=== PATIENT | female | born 1985 | race Caucasian/White ===

== ENCOUNTER 2018-12-18 18:52 | Inpatient (IN) ==
[2018-12-18] MEDS ORDERED: 0.9 % Sodium Chloride 1,000 ML IVC ONE ×3 (19:31→23:03)
--- NOTE | 2018-12-18 19:36 | Emergency Department Note ---
Disposition Clinical Impression: Pulmonary cavitary lesion, Dehydration Pneumonia Qualifiers: Pneumonia type: due to unspecified organism Laterality: bilateral Lung location: unspecified part of lung Qualified Code(s): J18.9 - Pneumonia, unspecified organism Disposition: Admitted As Inpatient Condition: Fair Forms: ED Satisfaction Letter Time of Disposition: 00:08 General Adult HPI - General Chief complaint: ED Extremity Problem,Nontraumatic Stated complaint: Left leg pain Time Seen by Provider: 12/18/18 19:00 Source: EMS Limitations: no limitations Nursing Notes Reviewed: Yes Vital Signs Reviewed: Yes - History of Present Illness HPI Narrative: Shirley Frost is a 33-year-old female with recent tooth extraction on Friday who presents to the ED with complaint of sharp left-sided rib pain that shoots down into her toes and fatigue. She states that she has not felt well since having her tooth pulled. The pain on her left side is constant and fluctuates in severity. Pain is worse with movement and nothing make it better. She admits to a cough and fever for the past 4 days. Her temperature yesterday morning was 101. She took ibuprofen with subjective improvement in fever and minimal relief of pain. She states that she was taking an antibiotic prior to her tooth extraction that she finished on or friday of last week. She denies any drug or alcohol abuse. She smokes 1ppd. She also admits to incarceration 2 months ago, and states that she was TB negative prior to incarceration. She denies recent sick contacts, headache, lighthededness, CP, SOB, N/V/D, recent trauma or injury. Pt Subjective Complaint: left-sided rib and leg pain Pain Scale: 7 - Related Data Allergies Allergy/AdvReac Type Severity Reaction Status Date / Time No Known Allergies Allergy Verified 06/11/15 10:50 All systems ED: reviewed and negative except as stated. Past Medical History - Past Medical History Medical history: Reports: no medical history Psychiatric history: Reports: no psych history - Social History Smoking Status: Current every day smoker Smokeless Tobacco Status: No Alcohol use: Reports: none Drug use: Reports: none Physical Exam - General Limitations: no limitations General appearance: alert, in no apparent distress - Head Head exam: atraumatic, normocephalic - Eye Eye exam: Present: normal appearance, EOMI - ENT ENT exam: mucous membranes moist - Neck Neck exam: Present: trachea midline - Chest Chest inspection: Present: symmetric chest wall rise, tenderness (left anterior and lateral ribcage tender to palpation). Absent: rash - Respiratory Respiratory exam: Present: normal lung sounds bilaterally, respiratory distress. Absent: wheezes, accessory muscle use - Cardiovascular Cardiovascular exam: Present: normal rhythm, tachycardia, +S1, +S2 - Abdominal Exam Abdominal exam: Present: soft, tenderness, guarding. Absent: distention, rebound, rigidity Abdominal tenderness: Present: RLQ, LUQ, LLQ, epigastrium, mild - Extremities Exam Extremities exam: Present: normal inspection. Absent: tenderness, pedal edema - Back Exam Back exam: Present: normal inspection. Absent: tenderness - Neurological Exam Neurological exam: Present: alert, oriented X3. Absent: motor sensory deficit - Psychiatric Psychiatric exam: Present: normal mood, flat affect - Skin Skin exam: Present: warm (clammy), intact. Absent: rash, cyanosis Course Vital Signs Temperature 98.5 F 12/18/18 18:55 Pulse Rate 130 12/18/18 18:55 Respiratory Rate 20 12/18/18 18:55 Blood Pressure 107/67 12/18/18 18:55 O2 Sat by Pulse Oximetry 98 12/18/18 18:55 Temperature 98.5 F 12/18/18 18:55 Pulse Rate 97 12/18/18 23:10 Respiratory Rate 16 12/18/18 23:10 Blood Pressure 102/62 12/18/18 23:10 O2 Sat by Pulse Oximetry 100 12/18/18 23:10 Oxygen Delivery Oxygen Delivery Room Air Medical Decision Making - [facility] Narrative Medical decision making narrative: Reported fever (afebrile on arrival), tachycardia, recent oral infection with tooth extraction. Oral exam normal without swelling, abscess, erythema. CBC normal. T Bili 1.4 D Bili 0.5, UA negative but suspect dehydration. CXR negative. No acute rib fracture. 2L NS bolus ordered CTA pending to r/o PE. HR now in the 90s, patient denies SOB at this time. CTA with multiple mediastinal and hilar nodes. Subcarnial lymp node approx 1.7x1.2cm. Multiple ill defined opacities bilaterally, come with central lucenxy suggesting cavitation and/or necrosis. BP 90s/50, changed to small adult cuff, last BP 102/62. HR 80-90s. Nursing to hang 3rd liter of fluids. Vanc/Zosyn x1 ordered. [id number] Patient accepted for admission by Dr. Mejias. UDS and Procalcitonin ordered per his request. - Medical Records Medical records reviewed: Yes I reviewed the patient's medical records. - Lab Data Lab results reviewed: Yes I reviewed the patient's lab results. Result diagrams: 12/18/18 19:50 12/18/18 19:50 Lab Results 12/18/18 12/18/18 12/18/18 Range/Units 19:50 19:50 19:50 WBC 8.7 (4.3-11.1) K/mcL RBC 4.49 (3.82-4.97) M/mcL Hgb 13.4 (11.5-15.4) g/dL Hct 39.5 (35.3-44.9) % MCV 88.0 (83.0-100.0) fL MCH 29.8 (28.0-33.3) pg MCHC 33.9 (31.6-35.5) g/dL RDW 11.6 (11.5-14.5) % Plt Count 201 (140-400) K/mcL MPV 9.5 (9.4-12.4) fL Immature Gran % 0.5 (0-4) % Seg Neutrophils % 72.2 % Lymphocytes % 16.1 % Monocytes % 11.0 % Eosinophils % 0.0 % Basophils % 0.2 % Neutrophils # 6.3 (1.6-8.9) K/mcL Lymphocytes # 1.4 (0.6-4.6) K/mcL Monocytes # 1.0 (0.0-1.3) K/mcL Eosinophils # 0.0 (0.0-0.6) K/mcL Basophils # 0.0 (0.0-0.2) K/mcL Sodium 134 L (136-145) mEq/L Potassium 3.8 (3.5-5.1) mEq/L Chloride 93 L (98-107) mEq/L Carbon Dioxide 30 H (23-29) mEq/L BUN 17 (6-20) mg/dL Creatinine 0.86 (0.60-1.20) mg/dL Est GFR ( Amer) > 60 (> 60) Est GFR (Non-Af Amer) > 60 (> 60) BUN/Creatinine Ratio 20 (6-26) Glucose 105 (70-105) mg/dL Calculated Osmolality 280 (280-300) Lactic Acid (0.5-2.2) mmol/L Calcium 9.4 (8.6-10.3) mg/dL Phosphorus 2.2 L (2.7-4.5) mg/dL Magnesium 2.4 (1.6-2.6) mg/dL Total Bilirubin 1.3 H (0.3-1.0) mg/dL Direct Bilirubin 0.5 H (0.0-0.2) mg/dL Indirect Bilirubin 0.8 (0.0-1.2) mg/dL AST 25 (13-39) Units/L ALT 26 (7-52) Units/L Alkaline Phosphatase 105 H (34-104) Units/L Troponin I < 0.03 (< 0.04) ng/mL Serum Total Protein 7.8 (6.4-8.9) g/dL Albumin 3.9 (3.5-5.7) g/dL Globulin 3.9 H (2.4-3.5) g/dL Albumin/Globulin Ratio 1.0 L (1.1-2.2) Urine Color [place] A (Yellow) Urine Clarity Cloudy A (Clear) Urine pH 6.0 (5.0-8.0) pH Units Ur Specific [place] 1.010 (1.010-1.025) Urine Protein 100 H (Neg-Trace) mg/dL Urine Glucose (UA) 100 H (Normal) mg/dL Urine Ketones 40 H (Negative) mg/dL Urine Blood Trace H (Negative) Urine Nitrite Negative (Negative) Urine Bilirubin Moderate H (Negative) Urine Urobilinogen 4.0 H (Normal) mg/dL Ur Leukocyte Esterase Negative (Negative) Urine Microscopic RBC 0-3 (0-3) per hpf Urine Microscopic WBC 15-30 H (0-3) per hpf Ur Squamous Epith Cells Many H (None-Few) per lpf Urine Bacteria Few (None-Few) per hpf Hyaline Casts Few (None-Few) per lpf Ur Culture Indicated? YES A (NO) Urine Test (Negative) 12/18/18 12/18/18 Range/Units 19:50 19:50 WBC (4.3-11.1) K/mcL RBC (3.82-4.97) M/mcL Hgb (11.5-15.4) g/dL Hct (35.3-44.9) % MCV (83.0-100.0) fL MCH (28.0-33.3) pg MCHC (31.6-35.5) g/dL RDW (11.5-14.5) % Plt Count (140-400) K/mcL MPV (9.4-12.4) fL Immature Gran % (0-4) % Seg Neutrophils % % Lymphocytes % % Monocytes % % Eosinophils % % Basophils % % Neutrophils # (1.6-8.9) K/mcL Lymphocytes # (0.6-4.6) K/mcL Monocytes # (0.0-1.3) K/mcL Eosinophils # (0.0-0.6) K/mcL Basophils # (0.0-0.2) K/mcL Sodium (136-145) mEq/L Potassium (3.5-5.1) mEq/L Chloride (98-107) mEq/L Carbon Dioxide (23-29) mEq/L BUN (6-20) mg/dL Creatinine (0.60-1.20) mg/dL Est GFR ( Amer) (> 60) Est GFR (Non-Af Amer) (> 60) BUN/Creatinine Ratio (6-26) Glucose (70-105) mg/dL Calculated Osmolality (280-300) Lactic Acid 1.2 (0.5-2.2) mmol/L Calcium (8.6-10.3) mg/dL Phosphorus (2.7-4.5) mg/dL Magnesium (1.6-2.6) mg/dL Total Bilirubin (0.3-1.0) mg/dL Direct Bilirubin (0.0-0.2) mg/dL Indirect Bilirubin (0.0-1.2) mg/dL AST (13-39) Units/L ALT (7-52) Units/L Alkaline Phosphatase (34-104) Units/L Troponin I (< 0.04) ng/mL Serum Total Protein (6.4-8.9) g/dL Albumin (3.5-5.7) g/dL Globulin (2.4-3.5) g/dL Albumin/Globulin Ratio (1.1-2.2) Urine Color (Yellow) Urine Clarity (Clear) Urine pH (5.0-8.0) pH Units Ur Specific [place] (1.010-1.025) Urine Protein (Neg-Trace) mg/dL Urine Glucose (UA) (Normal) mg/dL Urine Ketones (Negative) mg/dL Urine Blood (Negative) Urine Nitrite (Negative) Urine Bilirubin (Negative) Urine Urobilinogen (Normal) mg/dL Ur Leukocyte Esterase (Negative) Urine Microscopic RBC (0-3) per hpf Urine Microscopic WBC (0-3) per hpf Ur Squamous Epith Cells (None-Few) per lpf Urine Bacteria (None-Few) per hpf Hyaline Casts (None-Few) per lpf Ur Culture Indicated? (NO) Urine Test Negative (Negative) - Radiology Data Radiology results reviewed: Yes I reviewed the patient's radiology results. - EKG Data EKG #1 EKG attestation: Yes I reviewed and interpreted this EKG. EKG results narrative: Sinus Tachycardia HR106 RR 568 OK 121 QRSD 80 QT 314 QTc 417. Similar to EKG pooja keith 10/28/2006. No acute ischemic changes, no ST elevation or depressions.
[2018-12-18 20:05] LABS: Bilirubin,Urine Moderate (Negative); Blood,Urine Trace (Negative); Clarity,Urine Cloudy (Clear); Color,Urine Orange (Yellow); Glucose,Urine (UA) 100 mg/dL (Normal); Ketones,Urine 40 mg/dL (Negative); Leukocyte Esterase,Urine Negative (Negative); Nitrite,Urine Negative (Negative); Protein,Urine 100 mg/dL (Neg-Trace)
[2018-12-18 20:07] LABS: Bacteria,Urine Few per hpf (None-Few); RBC,Urine 0-3 per hpf (0-3); Squamous Epithelial Cell,Urine Many per lpf (None-Few); WBC,Urine 15-30 per hpf (0-3)
[2018-12-18 20:09] LABS: Basophils % 0.2 %; Hematocrit 39.5 % (35.3-44.9); Hemoglobin 13.4 g/dL (11.5-15.4); Immature Granulocytes % 0.5 % (0-4); Lymphocytes # 1.4 K/mcL (0.6-4.6); Lymphocytes % 16.1 %; Mean Corpuscular HGB Conc 33.9 g/dL (31.6-35.5); Mean Corpuscular Hemoglobin 29.8 pg (28.0-33.3); Mean Platelet Volume 9.5 fL (9.4-12.4); Neutrophils # 6.3 K/mcL (1.6-8.9); Platelet Count 201 K/mcL (140-400); Red Blood Count 4.49 M/mcL (3.82-4.97); Red Cell Distribution Width 11.6 % (11.5-14.5); Segmented Neutrophils % 72.2 %; White Blood Count 8.7 K/mcL (4.3-11.1)
[2018-12-18 20:18] LABS: Hyaline Casts,Urine Few per lpf (None-Few)
[2018-12-18 20:31] LABS: Alanine Aminotransferase 26 Units/L (7-52); Albumin 3.9 g/dL (3.5-5.7); Alkaline Phosphatase 105 Units/L (34-104); Aspartate Amino Transferase 25 Units/L (13-39); BUN/Creatinine Ratio 20 (6-26); Bilirubin,Direct 0.5 mg/dL (0.0-0.2); Bilirubin,Indirect 0.8 mg/dL (0.0-1.2); Bilirubin,Total 1.3 mg/dL (0.3-1.0); Blood Urea Nitrogen 17 mg/dL (6-20); Calcium 9.4 mg/dL (8.6-10.3); Carbon Dioxide 30 mEq/L (23-29); Chloride 93 mEq/L (98-107); Globulin 3.9 g/dL (2.4-3.5); Glucose 105 mg/dL (70-105); Magnesium 2.4 mg/dL (1.6-2.6); Osmolality,Calculated 280 (280-300); Phosphorous 2.2 mg/dL (2.7-4.5); Potassium 3.8 mEq/L (3.5-5.1); Sodium 134 mEq/L (136-145); Total Protein 7.8 g/dL (6.4-8.9); Troponin I < 0.03 ng/mL (< 0.04); eGFR For African Americans > 60 (> 60); eGFR For Non-African Americans > 60 (> 60)
[2018-12-18] MEDS ORDERED: Isovue-370 500 ML BOTTLE IVP ONE (20:36)
[2018-12-18] MEDS ORDERED: Piperacillin/Tazobactam 3.375 GM in 0.9 % Sodium Chloride Mini Bag 100 ML IVPB ONE (23:03)
--- NOTE | 2018-12-18 23:47 | Emergency Department Note ---
Disposition Clinical Impression: Pulmonary necrosis, Hilar lymphadenopathy Pneumonia Qualifiers: Pneumonia type: due to unspecified organism Laterality: unspecified laterality Lung location: unspecified part of lung Qualified Code(s): J18.9 - Pneumonia, unspecified organism Disposition: Admitted As Inpatient Condition: Good Forms: ED Satisfaction Letter Time of Disposition: 23:49 General Adult HPI - General Chief complaint: ED Extremity Problem,Nontraumatic Stated complaint: Left leg pain Time Seen by Provider: 12/18/18 19:00 Source: EMS Limitations: no limitations - History of Present Illness Pain Scale: 7 - Related Data Allergies Allergy/AdvReac Type Severity Reaction Status Date / Time No Known Allergies Allergy Verified 06/11/15 10:50 Past Medical History - Past Medical History Medical history: Reports: no medical history Psychiatric history: Reports: no psych history - Social History Smoking Status: Current every day smoker Smokeless Tobacco Status: No Alcohol use: Reports: none Drug use: Reports: none Physical Exam - General Limitations: no limitations General appearance: alert, in no apparent distress Course Vital Signs Temperature 98.5 F 12/18/18 18:55 Pulse Rate 130 12/18/18 18:55 Respiratory Rate 20 12/18/18 18:55 Blood Pressure 107/67 12/18/18 18:55 O2 Sat by Pulse Oximetry 98 12/18/18 18:55 Temperature 98.5 F 12/18/18 18:55 Pulse Rate 97 12/18/18 23:10 Respiratory Rate 16 12/18/18 23:10 Blood Pressure 102/62 12/18/18 23:10 O2 Sat by Pulse Oximetry 100 12/18/18 23:10 Oxygen Delivery Oxygen Delivery Room Air Medical Decision Making - Lab Data Result diagrams: 12/18/18 19:50 12/18/18 19:50 Lab Results 12/18/18 12/18/18 12/18/18 Range/Units 19:50 19:50 19:50 WBC 8.7 (4.3-11.1) K/mcL RBC 4.49 (3.82-4.97) M/mcL Hgb 13.4 (11.5-15.4) g/dL Hct 39.5 (35.3-44.9) % MCV 88.0 (83.0-100.0) fL MCH 29.8 (28.0-33.3) pg MCHC 33.9 (31.6-35.5) g/dL RDW 11.6 (11.5-14.5) % Plt Count 201 (140-400) K/mcL MPV 9.5 (9.4-12.4) fL Immature Gran % 0.5 (0-4) % Seg Neutrophils % 72.2 % Lymphocytes % 16.1 % Monocytes % 11.0 % Eosinophils % 0.0 % Basophils % 0.2 % Neutrophils # 6.3 (1.6-8.9) K/mcL Lymphocytes # 1.4 (0.6-4.6) K/mcL Monocytes # 1.0 (0.0-1.3) K/mcL Eosinophils # 0.0 (0.0-0.6) K/mcL Basophils # 0.0 (0.0-0.2) K/mcL Sodium 134 L (136-145) mEq/L Potassium 3.8 (3.5-5.1) mEq/L Chloride 93 L (98-107) mEq/L Carbon Dioxide 30 H (23-29) mEq/L BUN 17 (6-20) mg/dL Creatinine 0.86 (0.60-1.20) mg/dL Est GFR ( Amer) > 60 (> 60) Est GFR (Non-Af Amer) > 60 (> 60) BUN/Creatinine Ratio 20 (6-26) Glucose 105 (70-105) mg/dL Calculated Osmolality 280 (280-300) Lactic Acid (0.5-2.2) mmol/L Calcium 9.4 (8.6-10.3) mg/dL Phosphorus 2.2 L (2.7-4.5) mg/dL Magnesium 2.4 (1.6-2.6) mg/dL Total Bilirubin 1.3 H (0.3-1.0) mg/dL Direct Bilirubin 0.5 H (0.0-0.2) mg/dL Indirect Bilirubin 0.8 (0.0-1.2) mg/dL AST 25 (13-39) Units/L ALT 26 (7-52) Units/L Alkaline Phosphatase 105 H (34-104) Units/L Troponin I < 0.03 (< 0.04) ng/mL Serum Total Protein 7.8 (6.4-8.9) g/dL Albumin 3.9 (3.5-5.7) g/dL Globulin 3.9 H (2.4-3.5) g/dL Albumin/Globulin Ratio 1.0 L (1.1-2.2) Urine Color [place] A (Yellow) Urine Clarity Cloudy A (Clear) Urine pH 6.0 (5.0-8.0) pH Units Ur Specific [place] 1.010 (1.010-1.025) Urine Protein 100 H (Neg-Trace) mg/dL Urine Glucose (UA) 100 H (Normal) mg/dL Urine Ketones 40 H (Negative) mg/dL Urine Blood Trace H (Negative) Urine Nitrite Negative (Negative) Urine Bilirubin Moderate H (Negative) Urine Urobilinogen 4.0 H (Normal) mg/dL Ur Leukocyte Esterase Negative (Negative) Urine Microscopic RBC 0-3 (0-3) per hpf Urine Microscopic WBC 15-30 H (0-3) per hpf Ur Squamous Epith Cells Many H (None-Few) per lpf Urine Bacteria Few (None-Few) per hpf Hyaline Casts Few (None-Few) per lpf Ur Culture Indicated? YES A (NO) Urine Test (Negative) 12/18/18 12/18/18 Range/Units 19:50 19:50 WBC (4.3-11.1) K/mcL RBC (3.82-4.97) M/mcL Hgb (11.5-15.4) g/dL Hct (35.3-44.9) % MCV (83.0-100.0) fL MCH (28.0-33.3) pg MCHC (31.6-35.5) g/dL RDW (11.5-14.5) % Plt Count (140-400) K/mcL MPV (9.4-12.4) fL Immature Gran % (0-4) % Seg Neutrophils % % Lymphocytes % % Monocytes % % Eosinophils % % Basophils % % Neutrophils # (1.6-8.9) K/mcL Lymphocytes # (0.6-4.6) K/mcL Monocytes # (0.0-1.3) K/mcL Eosinophils # (0.0-0.6) K/mcL Basophils # (0.0-0.2) K/mcL Sodium (136-145) mEq/L Potassium (3.5-5.1) mEq/L Chloride (98-107) mEq/L Carbon Dioxide (23-29) mEq/L BUN (6-20) mg/dL Creatinine (0.60-1.20) mg/dL Est GFR ( Amer) (> 60) Est GFR (Non-Af Amer) (> 60) BUN/Creatinine Ratio (6-26) Glucose (70-105) mg/dL Calculated Osmolality (280-300) Lactic Acid 1.2 (0.5-2.2) mmol/L Calcium (8.6-10.3) mg/dL Phosphorus (2.7-4.5) mg/dL Magnesium (1.6-2.6) mg/dL Total Bilirubin (0.3-1.0) mg/dL Direct Bilirubin (0.0-0.2) mg/dL Indirect Bilirubin (0.0-1.2) mg/dL AST (13-39) Units/L ALT (7-52) Units/L Alkaline Phosphatase (34-104) Units/L Troponin I (< 0.04) ng/mL Serum Total Protein (6.4-8.9) g/dL Albumin (3.5-5.7) g/dL Globulin (2.4-3.5) g/dL Albumin/Globulin Ratio (1.1-2.2) Urine Color (Yellow) Urine Clarity (Clear) Urine pH (5.0-8.0) pH Units Ur Specific [place] (1.010-1.025) Urine Protein (Neg-Trace) mg/dL Urine Glucose (UA) (Normal) mg/dL Urine Ketones (Negative) mg/dL Urine Blood (Negative) Urine Nitrite (Negative) Urine Bilirubin (Negative) Urine Urobilinogen (Normal) mg/dL Ur Leukocyte Esterase (Negative) Urine Microscopic RBC (0-3) per hpf Urine Microscopic WBC (0-3) per hpf Ur Squamous Epith Cells (None-Few) per lpf Urine Bacteria (None-Few) per hpf Hyaline Casts (None-Few) per lpf Ur Culture Indicated? (NO) Urine Test Negative (Negative) Attestation Statement - Attestation Attestation: I reviewed the residents documentation and agree with the residents assessment and plan of care. I have personally had face to face time with the patient. (Brief History, Brief Exam, and MDM) I personally supervised and was present for the botello/critical portions of the following procedures completed by the resident: EKG 33 year old female presents to the ED with complaints of chest pain on her left side that otherwise radiates down to her leg and has a heart rate of 130 and labile blood pressures. It appears that on CTA that she has lung necrosis, cavitations, and hilar lymphadenopathy. Patient was recently incarcerated in september. Axel is at risk for TB and although her heart rate has improved we will start her on ABX now and then admit to medicine. drolet precautions have been taken and she has been moved into a negative pressure room
[2018-12-19] MEDS ORDERED: Naloxone 0.4 MG/ML INJ IVP PRN (01:02)
[2018-12-19] MEDS ORDERED: 0.9 % Sodium Chloride 1,000 ML IVC SCH (01:15)
--- NOTE | 2018-12-19 01:27 | Internal Med History&Physical ---
Date of Encounter: 12/19/18 Time of Encounter: 01: Internal Medicine - H&P: HPI Chief complaint: chest pain Admitted From: Home Plans for Post Hospital Care: Home History of present illness: Shirley Frost is a 33 year old woman with a history of substance use disorder who reportedly quit 7 months ago after being incarcerated and was released 2 months ago but says she has remained clean. She presents to the emergency room complaining of 3 days of generalized malaise, fever, chills, left sided pleuritic chest pain that radiates all the way down her life side. On arrival she was tachycardic but afebrile and normotensive. CT scan was done which showed multifocal nodular lesions, some with central lucency suggesting cavitation or necrosis. The largest is seen to be in the left lower periphery abutting where she feels the pleuritic pain the most. She is admitted for further care. Vitals: Reviewed General: Well-appearing, NAD, some antalgic posturing Skin: Warm, dry HEENT: Moist mucous membranes. No conjunctivae pallor or petechiae. Poor dentition. Neck: No lymphadenopathy. No JVD. No carotid bruits. No palpable thyroid. Chest: Diminished thoracic expansion due to pain. No wheezes, rales or rhonchi. Heart: Normal S1 & S2; rhythmic. No rubs or murmurs. Abdomen: Non-distended, soft and non-tender to palpation. No peritoneal reaction. Extremities: No clubbing, cyanosis or edema. No calf tenderness. Normal distal pulses. No janeway lesions or splinter hemorrhages identified. Neurological: Awake, alert and oriented to person, place and time. No focal deficits. Psych: Affect appropriate. Assessment/Plan 1. Pleuritic chest pain: CTA negative for PE but remarkable for multifocal nodular lesions which have the appearance of septic emboli. If this would be the case it is unclear if these are newly formed or in convalescence. She is high risk with her IVDU history. Will prefer to treat empirically for now until we understand better what is at play and start vancomycin/ceftriaxone empirically, obtain multiple sets of blood cultures to increase yield and schedule her for an echo to assess for valvular lesions. 2. Substance use disorder: Check UDS for to assess for ongoing use. 5 minutes were spent counseling and educating the patient on this habit. resident services supervisor and resources were made available. 3. Tobacco dependence: Smoking cessation advised. 4. DVT prophylaxis: SCDs. Past Med Surg Social Fam HX - Past Medical History Medical history: no medical history Psychiatric history: no psych history - Past Surgical History Additional surgical history: Ear Tubes, Tubal ligation - Social History Smoking Status: Current every day smoker Smokeless Tobacco Status: No Alcohol use: none Drug use: none Internal Medicine - H&P: Meds Allergy/AdvReac Type Severity Reaction Status Date / Time No Known Allergies Allergy Verified 06/11/15 10:50 All Systems PM: A 10-system review of systems was performed and is negative for pertinent findings except as documented above in the HPI. Family history reviewed and found non-contributory. - Constitutional Vitals: Temp Pulse Resp BP Pulse Ox 98.5 F 97 16 102/62 100 12/18/18 18:55 12/18/18 23:10 12/18/18 23:10 12/18/18 23:10 12/18/18 23:10 Exam: . Internal Med - H&P Results - Labs CBC & Chem 7: 12/18/18 19:50 12/18/18 19:50 Labs: Short CBC 12/18/18 Range/Units 19:50 WBC 8.7 (4.3-11.1) K/mcL Hgb 13.4 (11.5-15.4) g/dL Hct 39.5 (35.3-44.9) % Plt Count 201 (140-400) K/mcL Neutrophils # 6.3 (1.6-8.9) K/mcL BMP 12/18/18 19:50 Sodium 134 L Potassium 3.8 Chloride 93 L Carbon Dioxide 30 H BUN 17 Creatinine 0.86 Glucose 105 Calcium 9.4 Cardiac Enzymes 12/18/18 Range/Units 19:50 Troponin I < 0.03 (< 0.04) ng/mL Liver Function 12/18/18 Range/Units 19:50 Total Bilirubin 1.3 H (0.3-1.0) mg/dL Direct Bilirubin 0.5 H (0.0-0.2) mg/dL AST 25 (13-39) Units/L ALT 26 (7-52) Units/L Alkaline Phosphatase 105 H (34-104) Units/L Albumin 3.9 (3.5-5.7) g/dL Urine 12/18/18 Range/Units 19:50 Urine Color [place] A (Yellow) Urine Clarity Cloudy A (Clear) Urine pH 6.0 (5.0-8.0) pH Units Ur Specific [place] 1.010 (1.010-1.025) Urine Protein 100 H (Neg-Trace) mg/dL Urine Glucose (UA) 100 H (Normal) mg/dL - Impressions ITS Impressions Ribs w/Chest X-Ray 12/18/18 19:30 IMPRESSION: 1. No acute rib fracture identified. 2. No acute cardiopulmonary process identified. D/ / Christopher Campos MD / Christopher Campos MD Interpreting Provider: Christopher Campos MD Chest CTA 12/18/18 20:36 IMPRESSION: No finding to suggest pulmonary embolus Multifocal ill-defined parenchymal opacities are noted bilaterally. A few of these have central lucency suggesting cavitation or necrosis. The largest of these opacities measures approximately 2 cm. Inflammatory/infectious nodules are favored. Follow-up is recommended until resolution. D/ / Chucho Corrales / Chucho Corrales Interpreting Provider: Chucho Corrales - Time Spent With Patient Total time spent is greater than 50% in coordination of care (as documented) at patient's floor/unit and/or counseling patient: Greater than 35 minutes
[2018-12-19] MEDS: *HR* OxyCODONE Immed Rel 5 MG TABLET PO PRN ×3 (01:54→14:41)
[2018-12-19] MEDS: Nicotine 14 MG PATCH.TD24 TD SCH (06:07)
[2018-12-19] MEDS: traMADol 50 MG TABLET PO PRN ×2 (06:07→19:40)
[2018-12-19] MEDS: Acetaminophen 325 MG TABLET PO PRN ×2 (07:05→19:43)
[2018-12-19 07:18] LABS: Basophils % 0.3 %; Eosinophils % 0.1 %; Hematocrit 32.4 % (35.3-44.9); Immature Granulocytes % 0.3 % (0-4); Lymphocytes % 12.7 %; Mean Corpuscular HGB Conc 32.4 g/dL (31.6-35.5); Mean Corpuscular Hemoglobin 29.7 pg (28.0-33.3); Mean Corpuscular Volume 91.8 fL (83.0-100.0); Mean Platelet Volume 9.7 fL (9.4-12.4); Monocytes % 9.8 %; Platelet Count 198 K/mcL (140-400); Red Blood Count 3.53 M/mcL (3.82-4.97); Red Cell Distribution Width 11.9 % (11.5-14.5); Segmented Neutrophils % 76.8 %; White Blood Count 7.6 K/mcL (4.3-11.1)
[2018-12-19 07:33] LABS: Hemoglobin 10.5 g/dL (11.5-15.4); Monocytes # 0.7 K/mcL (0.0-1.3); Neutrophils # 5.8 K/mcL (1.6-8.9)
[2018-12-19 07:37] LABS: BUN/Creatinine Ratio 13 (6-26); Blood Urea Nitrogen 9 mg/dL (6-20); Calcium 7.6 mg/dL (8.6-10.3); Carbon Dioxide 27 mEq/L (23-29); Chloride 104 mEq/L (98-107); Glucose 112 mg/dL (70-105); Osmolality,Calculated 281 (280-300); Sodium 136 mEq/L (136-145); eGFR For African Americans > 60 (> 60); eGFR For Non-African Americans > 60 (> 60)
[2018-12-19 08:04] LABS: Platelet Estimate Normal (Normal)
[2018-12-19] MEDS: Piperacillin/Tazobactam 3.375 GM in 0.9 % Sodium Chloride Mini Bag 100 ML IVPB SCH ×2 (08:40→15:48)
[2018-12-19] MEDS ORDERED: cefTRIAXone 2,000 MG in Water for inj. (sterile) 20 ML IVPB SCH (09:00)
--- NOTE | 2018-12-19 09:11 | Internal Med Progress Note ---
Hospitalist Progress Note - Encounter Date of Encounter: 12/19/18 Time of Encounter: 09:09 - Subjective Interval History: The patient was seen on examination of the bedside. Patient has shortness of breath with cough and pleuritic chest pain, so the patient complained of bilateral leg pain and lower back pain, still spiking fever with future of sepsis, patient may have septic emboli, 2-D echo is still pending, also a mild LUMBAR spine to rule out osteomyelitis. - Exam Vitals: Temp Pulse Resp BP Pulse Ox 100.9 F H 111 20 105/65 88 12/19/18 06:14 12/19/18 06:14 12/19/18 06:14 12/19/18 06:14 12/19/18 06:14 Exam: Physical examination: Gen.: Patient is alert and oriented, in moderate respiratory distress HEENT: perrla , EOMI, no thyroid gland enlargement, no neck mass, supple neck Heart: S1 and S2 [place], normal sinus rhythm, no cardiac murmur no gallop rhythm Chest: Air entry equal bilaterally, clear chest, no wheezing, diminished vision bilaterally Abdomen: Soft non-tender non-distended positive bowel sounds, no organomegaly Extremities: No pitting edema, peripheral pulses palpable, no cyanosis, there is bilateral leg muscle tenderness on palpation Neuro: Able to move all 4 limbs, no focal neurological deficit. - Assessment and Plan (1) Pulmonary cavitary lesion Current Visit: Yes Status: Acute Assessment and Plan: CTA chest show multifocal nodular lesion with cavitary appearance suspicious for septic emboli: Patient currently on 2 L nasal cannula oxygen consistent with hypoxic respiratory failure secondary to possible septic emboli Continue vancomycin and started on IV Zosyn Follow-up plus cultures sputum culture 2-D echo still pending. Consult stripper black and white for possible CHRISTY to rule out endocarditis Order MRI of lower back lumbar spine to rule out osteomyelitis versus abscess Patient currently has sepsis with fever and tachycardia, continue fluid analysis supportive therapy Continue on Tylenol for fever Correction electrolytes (2) Substance abuse Current Visit: Yes Status: Acute Assessment and Plan: Counseled Check drug urine screen (3) Anemia Current Visit: Yes Status: Acute Assessment and Plan: Hemoglobins of 210.5 from 13.4 yesterday most likely dilutional secondary to dehydration There is no sign of bleeding Continue to monitor CBC - Time Spent with Patient Total time spent is greater than 50% in coordination of care (as documented) at patient's floor/unit and/or counseling patient: Internal Medicine: Result - Labs CBC & Chem 7: 12/19/18 04:00 12/19/18 04:00 Labs: Short CBC 12/18/18 12/19/18 Range/Units 19:50 04:00 WBC 8.7 7.6 (4.3-11.1) K/mcL Hgb 13.4 10.5 L D (11.5-15.4) g/dL Hct 39.5 32.4 L (35.3-44.9) % Plt Count 201 198 (140-400) K/mcL Neutrophils # 6.3 5.8 (1.6-8.9) K/mcL BMP 12/18/18 12/19/18 19:50 04:00 Sodium 134 L 136 Potassium 3.8 4.0 Chloride 93 L 104 Carbon Dioxide 30 H 27 BUN 17 9 Creatinine 0.86 0.72 Glucose 105 112 H Calcium 9.4 7.6 L Cardiac Enzymes 12/18/18 Range/Units 19:50 Troponin I < 0.03 (< 0.04) ng/mL Liver Function 12/18/18 Range/Units 19:50 Total Bilirubin 1.3 H (0.3-1.0) mg/dL Direct Bilirubin 0.5 H (0.0-0.2) mg/dL AST 25 (13-39) Units/L ALT 26 (7-52) Units/L Alkaline Phosphatase 105 H (34-104) Units/L Albumin 3.9 (3.5-5.7) g/dL Urine 12/18/18 Range/Units 19:50 Urine Color [place] A (Yellow) Urine Clarity Cloudy A (Clear) Urine pH 6.0 (5.0-8.0) pH Units Ur Specific [place] 1.010 (1.010-1.025) Urine Protein 100 H (Neg-Trace) mg/dL Urine Glucose (UA) 100 H (Normal) mg/dL - Impressions Impressions Ribs w/Chest X-Ray 12/18/18 19:30 IMPRESSION: 1. No acute rib fracture identified. 2. No acute cardiopulmonary process identified. D/ / Christopher Campos MD / Christopher Campos MD Interpreting Provider: Christopher Campos MD Chest CTA 12/18/18 20:36 IMPRESSION: No finding to suggest pulmonary embolus Multifocal ill-defined parenchymal opacities are noted bilaterally. A few of these have central lucency suggesting cavitation or necrosis. The largest of these opacities measures approximately 2 cm. Inflammatory/infectious nodules are favored. Follow-up is recommended until resolution. D/ / Chucho Corrales / Chucho Corrales Interpreting Provider: Chucho Corrales Consult Discharge Plan - Plan Referrals: Ysabel Gamez MD [Primary Care Provider] - (3) Anemia Qualifiers: Anemia type: unspecified type Qualified Code(s): D64.9 - Anemia, unspecified
[2018-12-19 09:19] LABS: Alanine Aminotransferase 20 Units/L (7-52); Albumin 2.8 g/dL (3.5-5.7); Alkaline Phosphatase 74 Units/L (34-104); Aspartate Amino Transferase 21 Units/L (13-39); Bilirubin,Direct 0.5 mg/dL (0.0-0.2); Bilirubin,Indirect 0.6 mg/dL (0.0-1.2); Bilirubin,Total 1.1 mg/dL (0.3-1.0); Globulin 2.9 g/dL (2.4-3.5); Magnesium 1.9 mg/dL (1.6-2.6); Phosphorous 1.8 mg/dL (2.7-4.5); Total Protein 5.7 g/dL (6.4-8.9)
[2018-12-19 09:55] LABS: C-Reactive Protein 145 mg/L (Less than 10)
[2018-12-19] MEDS ORDERED: Tuberculin Skin Test (PPD) 5 TUB/0.1 ML VIAL ID ONE (13:04)
[2018-12-19 13:10] LABS: Acinetobacter baumannii by PCR Not Detected (Not Detect); Candida albicans by PCR Not Detected (Not Detect); Candida glabrata by PCR Not Detected (Not Detect); Candida krusei by PCR Not Detected (Not Detect); Candida parapsilosis by PCR Not Detected (Not Detect); Candida tropicalis by PCR Not Detected (Not Detect); Enterobacter cloacae Cmplx PCR Not Detected (Not Detect); Enterobacteriaceae by PCR Not Detected (Not Detect); Enterococcus by PCR Not Detected (Not Detect); Escherichia coli by PCR Not Detected (Not Detect); Klebsiella oxytoca by PCR Not Detected (Not Detect); Klebsiella pneumoniae by PCR Not Detected (Not Detect); Proteus by PCR Not Detected (Not Detect); Pseudomonas aeruginosa by PCR Not Detected (Not Detect); Serratia marcescens by PCR Not Detected (Not Detect); Staphylococcus aureus by PCR DETECTED (Not Detect); Staphylococcus by PCR DETECTED (Not Detect); Streptococcus agalactiae(B)PCR Not Detected (Not Detect); Streptococcus by PCR Not Detected (Not Detect); Streptococcus pneumoniae PCR Not Detected (Not Detect); Streptococcus pyogenes (A) PCR Not Detected (Not Detect); mecA Methicillin-Resist Gene DETECTED (Not Detect)
--- NOTE | 2018-12-19 14:12 | Electrocardiograph Report ---
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
[2018-12-19] MEDS ORDERED: 0.9 % Sodium Chloride 250 ML ONE (15:23)
[2018-12-19] MEDS: *HR* Heparin 5,000 UNIT/ML VIAL SQ SCH ×2 (15:48→19:40)
[2018-12-19 23:04] LABS: Adenovirus Not Detected (Not Detect); Bordetella Pertussis Not Detected (Not Detect); Chlamydophila pneumoniae Not Detected (Not Detect); Coronavirus 229E Not Detected (Not Detect); Coronavirus HKU1 Not Detected (Not Detect); Coronavirus NL63 Not Detected (Not Detect); Coronavirus OC43 Not Detected (Not Detect); Human Metapneumovirus Not Detected (Not Detect); Human Rhinovirus/Enterovirus Not Detected (Not Detect); Influenza A Subtype 2009 H1 Not Detected (Not Detect); Influenza A Untypeable Not Detected (Not Detect); Influenza B Not Detected (Not Detect); Mycoplasma pneumoniae Not Detected (Not Detect); Parainfluenza Virus 1 Not Detected (Not Detect); Parainfluenza Virus 2 Not Detected (Not Detect); Parainfluenza Virus 3 Not Detected (Not Detect); Parainfluenza Virus 4 Not Detected (Not Detect); Respiratory Syncytial Virus Not Detected (Not Detect)
[2018-12-19 23:39] LABS: Amphetamine Screen,Urine Negative ng/mL (Cutoff=1000); Barbiturate Screen,Urine Negative ng/mL (Cutoff=200); Benzodiazepines Screen,Urine Negative ng/mL (Cutoff=200); Cannabinoid Screen,Urine Negative ng/mL (Cutoff = 50); Cocaine Screen,Urine Negative ng/mL (Cutoff= 300); Opiate Screen,Urine Negative ng/mL (Cutoff=300); Phencyclidine Screen,Urine Negative ng/mL (Cutoff=25)
[2018-12-20] MEDS: Piperacillin/Tazobactam 3.375 GM in 0.9 % Sodium Chloride Mini Bag 100 ML IVPB SCH ×4 (00:45→23:44)
[2018-12-20] MEDS: *HR* OxyCODONE Immed Rel 5 MG TABLET PO PRN ×4 (00:45→23:45)
[2018-12-20] MEDS: Nicotine 14 MG PATCH.TD24 TD SCH (02:18)
[2018-12-20] MEDS ORDERED: *HR* OxyCODONE Immed Rel 5 MG TABLET PO ONE (04:38)
[2018-12-20] MEDS ORDERED: Acetaminophen IV 500 MG/50 ML INFUS..BTL IVPB ONE (04:40)
[2018-12-20] MEDS: *HR* Heparin 5,000 UNIT/ML VIAL SQ SCH ×3 (06:01→19:44)
--- NOTE | 2018-12-20 08:20 | Internal Med Progress Note ---
Hospitalist Progress Note - Encounter Date of Encounter: 12/20/18 Time of Encounter: 08:18 - Subjective Interval History: the patient was seen and examined at bedside. she states she is sore all over spiked fever last night 102 2 set of blood culture is growing G+ cocci plan for ID consult on Friday likely endocarditis plan for CHRISTY tomorrow the patient still has pleuritic chest pain but unable to cough - Exam Vitals: Temp Pulse Resp BP Pulse Ox 98.4 F 92 16 96/58 95 12/20/18 00:04 12/20/18 00:04 12/20/18 00:04 12/20/18 00:04 12/20/18 00:04 Exam: Physical examination: Gen.: Patient is alert and oriented, in moderate respiratory distress HEENT: perrla , EOMI, no thyroid gland enlargement, no neck mass, supple neck Heart: S1 and S2 [place], normal sinus rhythm, no cardiac murmur no gallop rhythm Chest: Air entry equal bilaterally, clear chest, no wheezing, diminished vision bilaterally Abdomen: Soft non-tender non-distended positive bowel sounds, no organomegaly Extremities: No pitting edema, peripheral pulses palpable, no cyanosis, there is bilateral leg muscle tenderness on palpation Neuro: Able to move all 4 limbs, no focal neurological deficit. - Assessment and Plan (1) Pulmonary cavitary lesion Current Visit: Yes Status: Acute Assessment and Plan: CTA chest show multifocal nodular lesion with cavitary appearance suspicious for septic emboli: Patient currently saturating well on RA Continue vancomycin and started on IV Zosyn Follow-up sputum culture and AFB follow HIV test 2-D echo still pending. plan for CHRISTY tomorrow to r/o endocarditis, consider consult incinerator plant laborer if there is evidence of vegetation MRI of lumbar spine unremarkable Continue on Tylenol for fever Correction of electrolytes (2) Substance abuse Current Visit: Yes Status: Acute Assessment and Plan: counseled follow drug urine screen (3) Anemia Current Visit: Yes Status: Acute Assessment and Plan: today CBC still pending no sign of bleeding , no hemoptysis Continue to monitor CBC (4) Bacteremia Current Visit: Yes Status: Acute Assessment and Plan: Blood cultures 4 sets are growing gram-positive cocci Most likely the patient has endocarditis Continue on IV vancomycin and IV Zosyn and follow ID and sensitivity of blood culture Consider consult infectious disease specialist tomorrow Sepsis with fever and tachycardia Continue on IV fluids and other supportive therapy DVT Prophylaxis: heparin - Time Spent with Patient Total time spent is greater than 50% in coordination of care (as documented) at patient's floor/unit and/or counseling patient: Internal Medicine: Result - Labs CBC & Chem 7: 12/19/18 04:00 12/19/18 04:00 Labs: Liver Function 12/19/18 Range/Units 04:00 Total Bilirubin 1.1 H (0.3-1.0) mg/dL Direct Bilirubin 0.5 H (0.0-0.2) mg/dL AST 21 (13-39) Units/L ALT 20 (7-52) Units/L Alkaline Phosphatase 74 (34-104) Units/L Albumin 2.8 L (3.5-5.7) g/dL - Impressions Impressions Lumbar Spine MRI 12/19/18 09:10 IMPRESSION: Unremarkable MRI of the lumbar spine with and without contrast. D/ / Reymundo Vu MD / Reymundo Vu MD Interpreting Provider: Reymundo Vu MD Consult Discharge Plan - Plan Referrals: Ysabel Gamez MD [Primary Care Provider] - (3) Anemia Qualifiers: Anemia type: unspecified type Qualified Code(s): D64.9 - Anemia, unspecified
[2018-12-20] MEDS: traMADol 50 MG TABLET PO PRN (12:43)
[2018-12-20] MEDS ORDERED: Gabapentin 300 MG CAPSULE PO ONE ×2 (12:55→20:07)
[2018-12-20 14:18] LABS: Hematocrit 30.8 % (35.3-44.9); Hemoglobin 10.1 g/dL (11.5-15.4); Mean Corpuscular HGB Conc 32.8 g/dL (31.6-35.5); Mean Corpuscular Hemoglobin 29.5 pg (28.0-33.3); Mean Corpuscular Volume 90.1 fL (83.0-100.0); Mean Platelet Volume 9.3 fL (9.4-12.4); Platelet Count 221 K/mcL (140-400); Red Blood Count 3.42 M/mcL (3.82-4.97); Red Cell Distribution Width 11.9 % (11.5-14.5); White Blood Count 9.5 K/mcL (4.3-11.1)
[2018-12-20 14:35] LABS: Alanine Aminotransferase 21 Units/L (7-52); Albumin 2.6 g/dL (3.5-5.7); Albumin/Globulin Ratio 0.9 (1.1-2.2); Alkaline Phosphatase 83 Units/L (34-104); Aspartate Amino Transferase 21 Units/L (13-39); BUN/Creatinine Ratio 7 (6-26); Bilirubin,Total 0.9 mg/dL (0.3-1.0); Blood Urea Nitrogen 4 mg/dL (6-20); Calcium 8.1 mg/dL (8.6-10.3); Carbon Dioxide 30 mEq/L (23-29); Chloride 100 mEq/L (98-107); Glucose 124 mg/dL (70-105); Magnesium 1.7 mg/dL (1.6-2.6); Osmolality,Calculated 280 (280-300); Phosphorous 2.4 mg/dL (2.7-4.5); Potassium 3.2 mEq/L (3.5-5.1); Sodium 136 mEq/L (136-145); Total Protein 5.6 g/dL (6.4-8.9); eGFR For African Americans > 60 (> 60); eGFR For Non-African Americans > 60 (> 60)
[2018-12-21] MEDS: Acetaminophen 325 MG TABLET PO PRN (03:38)
[2018-12-21] MEDS: *HR* Heparin 5,000 UNIT/ML VIAL SQ SCH ×4 (05:57→23:38)
--- NOTE | 2018-12-21 07:58 | Internal Med Progress Note ---
Hospitalist Progress Note - Encounter Date of Encounter: 12/21/18 Time of Encounter: 07:54 - Subjective Interval History: Patient is seen and examined she said she has been sober for 7 months from IV heroine c/o chest pain and upper abdominal pain, spiked fever 102.1 last night - Exam Vitals: Temp Pulse Resp BP Pulse Ox 97.9 F 86 18 102/64 98 12/21/18 06:34 12/21/18 06:34 12/21/18 06:34 12/21/18 06:34 12/21/18 06:34 Exam: Physical examination: Gen.: Patient is alert and oriented, in moderate respiratory distress HEENT: perrla , EOMI, no thyroid gland enlargement, no neck mass, supple neck Heart: S1 and S2 [place], normal sinus rhythm, no cardiac murmur no gallop rhythm Chest: Air entry equal bilaterally, clear chest, no wheezing, reduced SB, scant crackles bilaterally Abdomen: Soft non-tender non-distended positive bowel sounds, no organomegaly Extremities: No pitting edema, peripheral pulses palpable, no cyanosis, there is bilateral leg muscle tenderness on palpation Neuro: Able to move all 4 limbs, no focal neurological deficit. DVT Prophylaxis: heparin - Summary of Assessment and Plan Summary of Assessment and Plan: Shirley Frost is a 33 year old woman with a history of substance use disorder who reportedly quit 7 months ago after being incarcerated and was released 2 months ago but says she has remained clean. She presents to the emergency room c omplaining of 3 days of generalized malaise, fever, chills, left sided pleuritic chest pain that radiates all the way down her life side. On arrival she was tachycardic but afebrile and normotensive. CT scan was done which showed multifocal nodular lesions, some with central lucency suggesting cavitation or necrosis. The largest is seen to be in the left lower periphery abutting where she feels the pleuritic pain the most. She is admitted for further care. (1).sepsis POA with Fever 102, HR 110 from pneumonia and MRSA bacteremia, on IV vancomycin and zosyn will consult ID (2) possible MRSA pneumonia, Pulmonary cavitary lesion Current Visit: Yes Status: Acute Assessment and Plan: CTA chest show multifocal nodular lesion with cavitary appearance suspicious for septic emboli: Patient currently saturating well on RA Continue vancomycin and IV Zosyn Follow-up sputum culture and AFB follow HIV test 2-D echo still pending. plan for CHRISTY tomorrow to r/o endocarditis, consider consult sports athletic trainer if there is evidence of vegetation MRI of lumbar spine unremarkable Continue on Tylenol for fever Correction of electrolytes (2) Substance abuse, IV heroine abuse, quitted 7 months ago Current Visit: Yes Status: Acute Assessment and Plan: counseled follow drug urine screen (3) Anemia Current Visit: Yes Status: Acute Assessment and Plan: today CBC still pending no sign of bleeding , no hemoptysis Continue to monitor CBC (4) possible UTI POA, on IV zosyn (5) tibacco dependent , on nicotine path Current Visit: Yes Status: Acute DVT Prophylaxis: - Time Spent with Patient Total time spent is greater than 50% in coordination of care (as documented) at patient's floor/unit and/or counseling patient: 25 - 35 minutes Plan of Care Discussed with: patient Internal Medicine: Result - Labs CBC & Chem 7: 12/20/18 14:05 12/20/18 14:05 Labs: Short CBC 12/20/18 Range/Units 14:05 WBC 9.5 (4.3-11.1) K/mcL Hgb 10.1 L (11.5-15.4) g/dL Hct 30.8 L (35.3-44.9) % Plt Count 221 (140-400) K/mcL BMP 12/20/18 14:05 Sodium 136 Potassium 3.2 L Chloride 100 Carbon Dioxide 30 H BUN 4 L Creatinine 0.54 L Glucose 124 H Calcium 8.1 L Liver Function 12/20/18 Range/Units 14:05 Total Bilirubin 0.9 (0.3-1.0) mg/dL AST 21 (13-39) Units/L ALT 21 (7-52) Units/L Alkaline Phosphatase 83 (34-104) Units/L Albumin 2.6 L (3.5-5.7) g/dL Consult Discharge Plan - Plan Referrals: Ysabel Gamez MD [Primary Care Provider] -
[2018-12-21 08:22] LABS: Hematocrit 32.1 % (35.3-44.9); Hemoglobin 10.6 g/dL (11.5-15.4); Mean Corpuscular Volume 90.9 fL (83.0-100.0); Mean Platelet Volume 9.2 fL (9.4-12.4); Platelet Count 277 K/mcL (140-400); Red Blood Count 3.53 M/mcL (3.82-4.97); Red Cell Distribution Width 12.1 % (11.5-14.5); White Blood Count 9.8 K/mcL (4.3-11.1)
[2018-12-21] MEDS: Nicotine 14 MG PATCH.TD24 TD SCH (08:34)
[2018-12-21] MEDS: Piperacillin/Tazobactam 3.375 GM in 0.9 % Sodium Chloride Mini Bag 100 ML IVPB SCH ×3 (08:34→23:47)
[2018-12-21 08:45] LABS: Alanine Aminotransferase 16 Units/L (7-52); Albumin 2.7 g/dL (3.5-5.7); Albumin/Globulin Ratio 0.8 (1.1-2.2); Alkaline Phosphatase 78 Units/L (34-104); Aspartate Amino Transferase 12 Units/L (13-39); BUN/Creatinine Ratio 9 (6-26); Bilirubin,Total 0.6 mg/dL (0.3-1.0); Blood Urea Nitrogen 5 mg/dL (6-20); Calcium 8.5 mg/dL (8.6-10.3); Carbon Dioxide 26 mEq/L (23-29); Chloride 105 mEq/L (98-107); Globulin 3.4 g/dL (2.4-3.5); Glucose 111 mg/dL (70-105); Magnesium 2.2 mg/dL (1.6-2.6); Osmolality,Calculated 286 (280-300); Phosphorous 3.7 mg/dL (2.7-4.5); Potassium 3.9 mEq/L (3.5-5.1); Sodium 139 mEq/L (136-145); Total Protein 6.1 g/dL (6.4-8.9); eGFR For African Americans > 60 (> 60); eGFR For Non-African Americans > 60 (> 60)
[2018-12-21] MEDS: *HR* OxyCODONE Immed Rel 5 MG TABLET PO PRN ×3 (08:50→21:32)
[2018-12-21] MEDS: traMADol 50 MG TABLET PO PRN ×3 (12:01→23:48)
--- NOTE | 2018-12-21 12:30 | Infectious Disease Consult ---
Infectious Disease-Consult - Encounter Date/Time Date of Encounter: 12/21/18 Time of Encounter: 12:19 - Data of Consult Patient: new to practice Reason for consult: MRSA bacteremia Consult date: 12/21/18 Requesting Physician: Uyen Ryder MD Primary Care Provider: Ysabel Gamez - [facility] HPI: Ms. Frost is a 33 year old female with a remote history of IVDU with last use 7 months ago. The patient was admitted to the hospital 12/18/18 for cavitary lung lesion, dehydration, and pneumonia. We are consulted 12/21/18 for further workup and treatment recommendations for MRSA bacteremia. Briefly, the patient is a 33-year-old female with a remote history of IV drug use, currently in remission. The patient presented to the emergency department with complaints of cough, fever, and left rib pain with extension down into her left leg. Upon arrival, she was afebrile, but she did report a fever of 101 at home. She was tachycardic, but was otherwise hemodynamically stable. WBC was normal. Lactic acid and renal function within normal limits. Her total bili was mildly elevated, but transaminases were normal. Troponin was negative. Urinalysis appeared contaminated. Chest x-ray was negative for acute cardiopulmonary process. She had a CTA chest that was negative for PE, but did show multifocal ill-defined parenchymal opacities bilaterally, a few of which had central lucency suggesting cavitation or necrosis. Blood cultures were obtained 2 sets. She was started empirically on vancomycin and Zosyn and admitted to the hospital for further evaluation. Since admission, the patient continues to have intermittent fevers with a MAXIMUM TEMPERATURE of 102.2. She also continues to have tachycardia. Her WBC remains normal. MRSA screen was negative. Respiratory infectious panel was negative. Urine drug screen was negative. Blood cultures obtained in the emergency department come back +2 out of 2 sets for MRSA (PCR. Repeat blood cultures drawn 12/19/18 are also +2 out of 2 sets. She had a PPD placed on 12/19/18 at 1548. HIV was negative. Transthoracic echo showed an EF of 60-65%, but no valvular vegetations. Currently, the patient is on vancomycin and Zosyn. We have been asked to evaluate and make further recommendations. My exam today, the patient endorses a history as stated above. States she had as a abscessed tooth pulled last Friday for which she received 2 weeks of an u nknown oral antibiotic which she completed. She states she was not given antibiotics postprocedure. She reported on Friday and Friday she began to develop fevers with chills and rigors. She denies headache or neck pain. She reports generalized myalgias and fatigue. She reports bilateral chest pain that is reproducible and is worse with cough or deep inspiration. She reports a moist, nonproductive cough. Denies hemoptysis or night sweats. Reports some weight loss over the last couple of weeks, but she is unable to tell me how much. She denies nausea, vomiting, diarrhea, or constipation. Denies abdominal or flank pain. Reports some lower back pain and generalized lower extremity p ain bilaterally. Denies oral thrush or skin rashes. Denies vaginal discharge or bleeding. The patient lives at home with her mother. 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 She smokes a pack cigarettes per day. Denies alcohol or illicit drug use since being released from custodial 2 months ago. Denies chronic infectious diseases. Denies recent travel. Has a cat at home. - ROS Review of Systems: All systems reviewed and no additional remarkable complaints except as stated. - Results CBC & Chem 7: 12/22/18 04:27 12/22/18 04:27 - Exam Vitals: Temp Pulse Resp BP Pulse Ox 98.8 F 99 18 104/69 93 12/21/18 10:50 12/21/18 10:50 12/21/18 10:50 12/21/18 10:50 12/21/18 10:50 Exam: Head: Atraumatic, normal inspection, normocephalic. Eye: EOMI, PERRLA, no scleral icterus noted. No subconjunctival hemorrhage noted. ENT: Mucous membranes moist. No odontogenic infection noted. Neck: Normal inspection, no meningismus. Respiratory: Clear to auscultation. No rales, respiratory distress, rhonchi, or wheezes noted. Cardiovascular: Regular rhythm, tachycardic. S1 and S2 audible. No murmurs, rubs, or gallops. GI: Soft, nondistended, normal bowel sounds. Generalized tenderness noted on palpation. Extremities:No joint swelling, pedal edema, or tenderness noted. Back: Normal inspection. No vertebral tenderness noted. Neurological: Alert, oriented 3, no focal deficits. Psychiatric: normal affect, normal mood. Skin: Dry, intact, warm. Normal color. No rashes. No endocarditis stigmata noted. No Known Home Drugs 12/19/18 [History] Allergy/AdvReac Type Severity Reaction Status Date / Time No Known Allergies Allergy Verified 12/19/18 17:54 - Assessment and Plan (1) Sepsis Current Visit: Yes Status: Acute The patient had 2 sepsis criteria. Likely secondary to bacteremia and cavitary lung lesion. Improved. Continues to have fevers, but overall fever curve has improved. Continues to have some intermittent tachycardia. Blood cultures drawn 12/18/18 are +2 out of 2 sets for MRSA. Repeat blood cultures on 12/19/18 are +2 out of 2 sets. SNOMED Code(s): 91979775 (2) Bacteremia Current Visit: Yes Status: Acute Causative organism: MRSA. Source: Unclear. The patient does have a history of IV drug use, but states she has been clean for about 7 months. Blood cultures drawn 12/18/18 are +2 out of 2 sets for MRSA. Repeat blood cultures on 12/19/18 are +2 out of 2 sets. Complicated due to septic emboli in the lungs. No endocarditis stigmata noted. The patient has 1 major and 2 minor modified [place] criteria. Currently on vancomycin. SNOMED Code(s): 9659989 (3) Pulmonary cavitary lesion Current Visit: Yes Status: Acute CTA of the chest showed multifocal parenchymal opacities some of which have cavitation/necrosis. Given the patient's history of IV drug use and MRSA bacteremia, concern for septic emboli. TB is on the differential given the patient's recent incarceration, but less likely. PPD has been placed. No hemoptysis, night sweats, or weight loss. SNOMED Code(s): 767372589 (4) Substance abuse Current Visit: Yes Status: Acute Reports history of IV heroin use with last use about 7 months ago. Urine drug screen negative. HIV nonreactive. SNOMED Code(s): 48642919 - Recommendations Recommendations: Repeat blood cultures 2 sets. Check rheumatoid factor. Check hepatitis B and C serologies. CHRISTY prior to discharge. Discontinue Zosyn. Continue vancomycin IV. Pharmacy to dose. Goal trough approximately 15. Monitor renal function for drug toxicity and dose adjust antibiotics. Duration of treatment depends on the clinical picture, but likely 4-6 weeks. gate services supervisor to assist with discharge planning. Avoid insertion of long-term IV access until repeat blood cultures are negative for 48 hours. Past Med Surg Social Fam HX - Past Medical History Medical history: no medical history Psychiatric history: no psych history - Past Surgical History Additional surgical history: Ear Tubes, Tubal ligation - Social History Smoking Status: Current every day smoker Smokeless Tobacco Status: No Alcohol use: none Drug use: none Consult Discharge Plan - Plan Referrals: Ysabel Gamez MD [Primary Care Provider] - - Attending Attestation I have personally performed a face to face evaluation on this patient. I have reviewed and agree with the care plan. History and Exam by me shows: This is an addendum to report dictated by Nicolasa Estes CNP. Please refer to Nicolasa's note for full detail. Assessment and plan: 1.Sepsis 2.MRSA bacteremia likely secondary to IV drug use 3.Pulmonary cavitary lesion concerning for septic emboli TB was negative 4.Substance abuse supposed to last time was 7 months ago 5.Generalized pains everywhere 6.Lower back pain with negative MRI for discitis/vertebral osteomyelitis Recommendations Continue vancomycin, we will change to every 8 hour dosing discussed with Rahul the pharmacist Await CHRISTY to finalize Check hepatitis profile Duration of treatment depends on the CHRISTY finding but at least 4 weeks line if we cannot get vancomycin trough therapeutic we might have to use daptomycin plus zyvox
[2018-12-21 17:20] LABS: Rheumatoid Factor 16 IU/mL (Less than 14)
[2018-12-21 18:51] LABS: Hepatitis B Surface Antigen Nonreactive (Nonreactive)
[2018-12-21 19:21] LABS: Hepatitis C Virus Antibody Nonreactive (Nonreactive)
[2018-12-22] MEDS: *HR* OxyCODONE Immed Rel 5 MG TABLET PO PRN ×3 (03:45→18:06)
[2018-12-22 05:25] LABS: Basophils % 0.3 %; Eosinophils # 0.1 K/mcL (0.0-0.6); Eosinophils % 2.1 %; Hematocrit 31.2 % (35.3-44.9); Hemoglobin 10.1 g/dL (11.5-15.4); Immature Granulocytes % 0.6 % (0-4); Lymphocytes # 1.6 K/mcL (0.6-4.6); Mean Corpuscular HGB Conc 32.4 g/dL (31.6-35.5); Mean Corpuscular Hemoglobin 29.6 pg (28.0-33.3); Mean Corpuscular Volume 91.5 fL (83.0-100.0); Mean Platelet Volume 9.2 fL (9.4-12.4); Monocytes # 0.7 K/mcL (0.0-1.3); Neutrophils # 4.1 K/mcL (1.6-8.9); Platelet Count 304 K/mcL (140-400); Red Blood Count 3.41 M/mcL (3.82-4.97); Red Cell Distribution Width 12.2 % (11.5-14.5); White Blood Count 6.5 K/mcL (4.3-11.1)
[2018-12-22] MEDS: *HR* Heparin 5,000 UNIT/ML VIAL SQ SCH ×3 (05:41→19:49)
[2018-12-22 05:45] LABS: BUN/Creatinine Ratio 9 (6-26); Blood Urea Nitrogen 6 mg/dL (6-20); Calcium 8.3 mg/dL (8.6-10.3); Carbon Dioxide 28 mEq/L (23-29); Chloride 103 mEq/L (98-107); Glucose 126 mg/dL (70-105); Osmolality,Calculated 291 (280-300); Potassium 3.8 mEq/L (3.5-5.1); Sodium 141 mEq/L (136-145); eGFR For African Americans > 60 (> 60); eGFR For Non-African Americans > 60 (> 60)
[2018-12-22 06:06] LABS: Platelet Estimate Normal (Normal)
[2018-12-22] MEDS ORDERED: Lidocaine Viscous Oral Soln 15 ML SOLUTION MM PRN (07:45)
[2018-12-22] MEDS ORDERED: 0.9 % Sodium Chloride 500 ML IVC ONE (07:45)
[2018-12-22] MEDS: *HR* Midazolam HCl 5 MG/5 ML VIAL IVP PRN ×2 (08:25→08:30)
[2018-12-22] MEDS: *HR* FentaNYL (PF) 100 MCG/2 ML VIAL IVP PRN ×2 (08:25→08:30)
[2018-12-22] MEDS: Nicotine 14 MG PATCH.TD24 TD SCH (09:18)
[2018-12-22] MEDS: traMADol 50 MG TABLET PO PRN ×3 (09:18→22:04)
--- NOTE | 2018-12-22 09:43 | Infectious Disease Progress No ---
ID Progress Note Date of Encounter: 12/22/18 Time of Encounter: 09:40 - Subjective Subjective: Patient seen and examined. No acute events noted overnight. Status post CHRISTY this morning. States she feels a little bit better. Continues to complain of diffuse myalgias and fatigue. Denies fevers, chills, or rigors. Reports reproducible diffuse chest pain with shortness of breath and a sparse cough that is nonproductive. Denies nausea, vomiting, diarrhea, or abdominal pain. States her last vomiting was yesterday. Denies urinary complaints. States her appetite is not very good. Denies oral thrush or skin rashes. - Objective CBC & Chem 7: 12/22/18 04:27 12/22/18 04:27 - Exam Vitals: Temp Pulse Resp BP Pulse Ox 97.6 F 106 28 130/87 92 12/22/18 07:46 12/22/18 07:46 12/22/18 07:46 12/22/18 09:31 12/22/18 07:46 Exam: Head: Atraumatic, normal inspection, normocephalic. Eye: EOMI, PERRLA, no scleral icterus noted. No subconjunctival hemorrhage noted. ENT: Mucous membranes moist. No odontogenic infection noted. Neck: Normal inspection, no meningismus. Respiratory: Clear to auscultation. No rales, respiratory distress, rhonchi, or wheezes noted. Cardiovascular: Regular rhythm, tachycardic. S1 and S2 audible. No murmurs, rubs, or gallops. GI: Soft, nondistended, normal bowel sounds. Generalized tenderness noted on palpation. Extremities: No joint swelling, pedal edema, or tenderness noted. Back: Normal inspection. No vertebral tenderness noted. Neurological: Alert, oriented 3, no focal deficits. Psychiatric: normal affect, normal mood. Skin: Dry, intact, warm. Normal color. No rashes. No endocarditis stigmata noted. - Assessment and Plan (1) Sepsis Current Visit: Yes Status: Acute The patient had 2 sepsis criteria. Likely secondary to bacteremia and cavitary lung lesion. Improved. Afebrile. Continues to have some intermittent tachycardia. Blood cultures drawn 12/18/18 are +2 out of 2 sets for MRSA. Repeat blood cultures on 12/19/18 are +2 out of 2 sets. Repeat blood cultures drawn 12/21/18 are pending x 2 sets. SNOMED Code(s): 65550057 (2) Bacteremia Current Visit: Yes Status: Acute Causative organism: MRSA. Source: Unclear. The patient does have a history of IV drug use, but states she has been clean for about 7 months. Blood cultures drawn 12/18/18 are +2 out of 2 sets for MRSA. Repeat blood cultures on 12/19/18 are +2 out of 2 sets. Repeat blood cultures drawn 12/21/18 are pending x 2 sets. Complicated due to septic emboli in the lungs. No endocarditis stigmata noted. Rheumatoid factor elevated. TTE negative for vegetations. CHRISTY report pending. The patient has 1 major and 3 minor modified [place] criteria. Currently on vancomycin. SNOMED Code(s): 5175497 (3) Pulmonary cavitary lesion Current Visit: Yes Status: Acute CTA of the chest showed multifocal parenchymal opacities some of which have cavitation/necrosis. Given the patient's history of IV drug use and MRSA bacteremia, concern for septic emboli. TB is on the differential given the patient's recent incarceration, but less likely. PPD negative. No hemoptysis, night sweats, or weight loss. SNOMED Code(s): 931330639 (4) Substance abuse Current Visit: Yes Status: Acute Reports history of IV heroin use with last use about 7 months ago. Urine drug screen negative. HIV nonreactive. Hep C negative. Hep B immune. The patient states she thinks she got the Hep B vaccinations. SNOMED Code(s): 74133544 - Recommendations Recommendations: Await repeat blood cultures. Await CHRISTY results. Continue vancomycin IV. Pharmacy to dose. Goal trough approximately 15. Monitor renal function for drug toxicity and dose adjust antibiotics. Duration of treatment depends on the clinical picture, but likely 4-6 weeks. services delivery driver to assist with discharge planning. Avoid insertion of long-term IV access until repeat blood cultures are negative for 48 hours. Consult Discharge Plan - Plan Referrals: Ysabel Gamez MD [Primary Care Provider] - - Attending Attestation I have personally performed a face to face evaluation on this patient. I have reviewed and agree with the care plan. History and Exam by me shows: Assessment and plan: 1.Sepsis 2.MRSA bacteremia likely secondary to IV drug use 3.Pulmonary cavitary lesion concerning for septic emboli TB was negative 4.Substance abuse supposed to last time was 7 months ago 5.Generalized pains everywhere 6.Lower back pain with negative MRI for discitis/vertebral osteomyelitis Recommendations Continue vancomycin, we will change to every 8 hour dosing discussed with Rahul the pharmacist CHRISTY negative hepatitis profile and HIV negative duration of treatment 4 weeks will need picc line and placement prior to d/c
--- NOTE | 2018-12-22 14:15 | Internal Med Progress Note ---
Hospitalist Progress Note - Encounter Date of Encounter: 12/22/18 Time of Encounter: 14:12 - Subjective Interval History: ppatient is katherine morales, toelrated CHRISTY, she c/o pain is not controlled, pain is 10/10 when take deep breath and cough. - Exam Vitals: Temp Pulse Resp BP Pulse Ox 98.6 F 86 18 120/83 96 12/22/18 10:53 12/22/18 10:53 12/22/18 10:53 12/22/18 10:53 12/22/18 10:53 Exam: Physical examination: Gen.: Patient is alert and oriented, in moderate respiratory distress HEENT: perrla , EOMI, no thyroid gland enlargement, no neck mass, supple neck Heart: S1 and S2 [place], normal sinus rhythm, no cardiac murmur no gallop rhythm Chest: Air entry equal bilaterally, clear chest, no wheezing, reduced SB, scant crackles bilaterally Abdomen: Soft non-tender non-distended positive bowel sounds, no organomegaly Extremities: No pitting edema, peripheral pulses palpable, no cyanosis, there is bilateral leg muscle tenderness on palpation Neuro: Able to move all 4 limbs, no focal neurological deficit. DVT Prophylaxis: heparin - Summary of Assessment and Plan Summary of Assessment and Plan: Shirley Frost is a 33 year old woman with a history of substance use disorder who reportedly quit 7 months ago after being incarcerated and was released 2 months ago but says she has remained clean. She presents to the emergency room complaining of 3 days of generalized malaise, fever, chills, left sided pleuritic chest pain that radiates all the way down her life side. On arrival she was tachycardic but afebrile and normotensive. CT scan was done which showed multifocal nodular lesions, some with central lucency suggesting cavitation or necrosis. The largest is seen to be in the left lower periphery abutting where she feels the pleuritic pain the most. She is admitted for further care. (1).sepsis POA with Fever 102, HR 110 from pneumonia and MRSA bacteremia, on IV vancomycin , appreciate ID consult (2) possible MRSA pneumonia, Pulmonary cavitary lesion Current Visit: Yes Status: Acute Assessment and Plan: CTA chest show multifocal nodular lesion with cavitary appearance suspicious for septic emboli: Patient currently saturating well on RA Continue vancomycin follow HIV test TTE and CHRISTY on 12/22 is negative endocarditis, MRI of lumbar spine unremarkable Continue on Tylenol for fever Correction of electrolytes (2) Substance abuse, IV heroine abuse, quitted 7 months ago Current Visit: Yes Status: Acute Assessment and Plan: counseled follow drug urine screen (3) Anemia Current Visit: Yes Status: Acute Assessment and Plan: today CBC still pending no sign of bleeding , no hemoptysis Continue to monitor CBC (4) possible UTI POA, was on zosyn for 3 days (5) tobacco dependent , on nicotine path Current Visit: Yes Status: Acute disposition: SNF for iV ATB 4-6 weeks - Time Spent with Patient Total time spent is greater than 50% in coordination of care (as documented) at patient's floor/unit and/or counseling patient: 25 - 35 minutes Plan of Care Discussed with: patient Internal Medicine: Result - Labs CBC & Chem 7: 12/22/18 04:27 12/22/18 04:27 Labs: Short CBC 12/22/18 Range/Units 04:27 WBC 6.5 (4.3-11.1) K/mcL Hgb 10.1 L (11.5-15.4) g/dL Hct 31.2 L (35.3-44.9) % Plt Count 304 (140-400) K/mcL Neutrophils # 4.1 (1.6-8.9) K/mcL BMP 12/22/18 04:27 Sodium 141 Potassium 3.8 Chloride 103 Carbon Dioxide 28 BUN 6 Creatinine 0.66 Glucose 126 H Calcium 8.3 L Consult Discharge Plan - Plan Referrals: Ysabel Gamez MD [Primary Care Provider] -
[2018-12-23 00:01] LABS: Amphetamines NEGATIVE ng/mL (Cutoff 30); Barbiturates NEGATIVE ng/mL (Cutoff 75); Benzodiazepines NEGATIVE ng/mL (Cutoff 75); Buprenorphine NEGATIVE ng/mL (Cutoff 1); Cocaine NEGATIVE ng/mL (Cutoff 30); Methadone NEGATIVE ng/mL (Cutoff 40); Methamphetamines NEGATIVE ng/mL (Cutoff 30); Opiates NEGATIVE ng/mL (Cutoff 30); Phencyclidine NEGATIVE ng/mL (Cutoff 15)
[2018-12-23] MEDS: *HR* OxyCODONE Immed Rel 5 MG TABLET PO PRN ×4 (00:07→20:10)
[2018-12-23] MEDS: traMADol 50 MG TABLET PO PRN ×4 (04:13→23:51)
[2018-12-23] MEDS: *HR* Heparin 5,000 UNIT/ML VIAL SQ SCH ×3 (05:23→21:36)
[2018-12-23] MEDS: Nicotine 14 MG PATCH.TD24 TD SCH (07:57)
--- NOTE | 2018-12-23 09:35 | Infectious Disease Progress No ---
ID Progress Note Date of Encounter: 12/23/18 Time of Encounter: 09:30 - Subjective Subjective: Patient seen and examined. No acute events noted overnight. Status post CHRISTY 12/22/18 that was negative. States she feels a little bit better. States myalgias are improved. Denies fevers, chills, or rigors. Reports reproducible diffuse chest pain with shortness of breath and a sparse cough that is nonproductive. Denies nausea, vomiting, diarrhea, or abdominal pain. States her last bowel movement was two days ago. Denies urinary complaints. States her appetite is not very good. Denies oral thrush or skin rashes. - Objective CBC & Chem 7: 12/24/18 05:09 12/24/18 05:09 - Exam Vitals: Temp Pulse Resp BP Pulse Ox 98.7 F 98 16 105/61 96 12/23/18 07:25 12/23/18 07:25 12/23/18 07:25 12/23/18 07:25 12/23/18 08:05 Exam: Head: Atraumatic, normal inspection, normocephalic. Eye: EOMI, PERRLA, no scleral icterus noted. No subconjunctival hemorrhage noted. ENT: Mucous membranes moist. No odontogenic infection noted. Neck: Normal inspection, no meningismus. Respiratory: Clear to auscultation. No rales, respiratory distress, rhonchi, or wheezes noted. Cardiovascular: Regular rhythm, tachycardic. S1 and S2 audible. No murmurs, rubs, or gallops. Reproducible chest pain noted. GI: Soft, nondistended, normal bowel sounds. Generalized tenderness noted on palpation. Extremities: No joint swelling, pedal edema, or tenderness noted. Back: Normal inspection. No vertebral tenderness noted. Neurological: Alert, oriented 3, no focal deficits. Psychiatric: normal affect, normal mood. Skin: Dry, intact, warm. Normal color. No rashes. No endocarditis stigmata noted. - Assessment and Plan (1) Sepsis Status: Resolved The patient had 2 sepsis criteria. Likely secondary to bacteremia and cavitary lung lesion. Improved. Afebrile. Continues to have some intermittent tachycardia. Blood cultures drawn 12/18/18 are +2 out of 2 sets for MRSA. Repeat blood cultures on 12/19/18 are +2 out of 2 sets. Repeat blood cultures drawn 12/21/18 are NGTD x 2 sets. Qualifiers: Sepsis type: sepsis due to unspecified organism Qualified Code(s): A41.9 - Sepsis, unspecified organism SNOMED Code(s): 23074897 (2) Bacteremia Status: Resolved Causative organism: MRSA. Source: Unclear. The patient does have a history of IV drug use, but states she has been clean for about 7 months. Blood cultures drawn 12/18/18 are +2 out of 2 sets for MRSA. Repeat blood cultures on 12/19/18 are +2 out of 2 sets. Repeat blood cultures drawn 12/21/18 are NGTD x 2 sets. Complicated due to septic emboli in the lungs. No endocarditis stigmata noted. Rheumatoid factor elevated. TTE negative for vegetations. CHRISTY negative. The patient has 1 major and 3 minor modified [place] criteria. Currently on vancomycin. SNOMED Code(s): 1457062 (3) Pulmonary cavitary lesion Status: Chronic CTA of the chest showed multifocal parenchymal opacities some of which have cavitation/necrosis. Given the patient's history of IV drug use and MRSA bacteremia, concern for septic emboli. TB is on the differential given the patient's recent incarceration, but less likely. PPD negative. No hemoptysis, night sweats, or weight loss. SNOMED Code(s): 546806061 (4) Substance abuse Status: Chronic Reports history of IV heroin use with last use about 7 months ago. Urine drug screen negative. HIV nonreactive. Hep C negative. Hep B immune. The patient states she thinks she got the Hep B vaccinations. SNOMED Code(s): 17610235 - Recommendations Recommendations: Await repeat blood cultures. Continue vancomycin IV. Pharmacy to dose. Goal trough approximately 15. Monitor renal function for drug toxicity and dose adjust antibiotics. Duration of treatment depends on the clinical picture, but likely 4 weeks. director of medical staff services to assist with discharge planning. Okay to consulte VAT for PICC line placement prior to discharge. Will need weekly CBC, BUN/Cr, ESR, CRP, and Vanc trough. Will need weekly PICC care per protocol. Follow up with ID 01/07/19 at 1520. Contact precautions per hospital policy. Consult Discharge Plan - Plan Referrals: Nicolasa Estes [facility] [Advanced Practice Nurse] - 01/07/19 3:20 pm Ysabel Gamez MD [Primary Care Provider] - (ECF) Prescriptions: Vancomycin HCl 1,250 mg IV Q12H 28 Days #56 vial - Attending Attestation I have personally performed a face to face evaluation on this patient. I have reviewed and agree with the care plan. History and Exam by me shows: Assessment and plan: 1.Sepsis 2.MRSA bacteremia likely secondary to IV drug use 3.Pulmonary cavitary lesion concerning for septic emboli TB was negative 4.Substance abuse supposed to last time was 7 months ago 5.Generalized pains everywhere 6.Lower back pain with negative MRI for discitis/vertebral osteomyelitis Recommendations Continue vancomycin, we will change to every 8 hour dosing discussed with Rahul the pharmacist CHRISTY negative hepatitis profile and HIV negative duration of treatment 4 weeks will need picc line and placement prior to d/c
--- NOTE | 2018-12-23 10:35 | Internal Med Progress Note ---
Hospitalist Progress Note - Encounter Date of Encounter: 12/23/18 Time of Encounter: 10:32 - Subjective Interval History: I have seen and evaluated the patient at bedside. patient reported feeling slightly short of breath today. denies chest pain, nausea, vomiting or abdominal pain. - Exam Vitals: Temp Pulse Resp BP Pulse Ox 98.7 F 98 16 105/61 96 12/23/18 07:25 12/23/18 07:12/23/18 07:12/23/18 07:12/23/18 08:05 Exam: Vitals: Reviewed General: Alert and oriented x4. In mild distress due to shortness of breath Cardiovascular: RRR, normal S1 & S2, no rubs, murmurs or gallops. Lungs: CTA b/l, no wheezes or crackles. Abdomen:Soft, non-tender, no rigidity. Extremities: No deformity, no edema or tenderness, no joint swelling or clubbing. Neurological: Normal cognition and motor skills. Rest of the physical exam is non contributory - Assessment and Plan (1) Bacteremia Current Visit: Yes Status: Acute Assessment and Plan: MRSA in 2 sets of blood cultures. Repeat Blood cultures on 12/18/18: no growth. patient on vancomycin per pharmacy protocol CHRISTY: no vegetation ID recommendations appreciated. (2) Anemia Current Visit: Yes Status: Chronic Assessment and Plan: H&H stable. will monitor and transfuse per protocol. (3) Pulmonary cavitary lesion Current Visit: Yes Status: Chronic Assessment and Plan: possible septic emboli? patient on broad spectrum IV antibiotics (4) Sepsis Current Visit: Yes Status: Resolved (5) Substance abuse Current Visit: Yes Status: Chronic DVT Prophylaxis: On heparin subQ. - Summary of Assessment and Plan Summary of Assessment and Plan: patient to remain in the hospital for at least 24 more hours on IV antibiotics. will be dc to SNF/ECF after blood culture remains negative for at least 48 sol rs. - Time Spent with Patient Total time spent is greater than 50% in coordination of care (as documented) at patient's floor/unit and/or counseling patient: Greater than 35 minutes (40) Plan of Care Discussed with: patient (and the nurse.) Internal Medicine: Result - Labs CBC & Chem 7: 12/22/18 04:27 12/22/18 04:27 Consult Discharge Plan - Plan Referrals: Ysabel Gamez MD [Primary Care Provider] - (2) Anemia Qualifiers: Anemia type: unspecified type Qualified Code(s): D64.9 - Anemia, unspecified (4) Sepsis Qualifiers: Sepsis type: sepsis due to unspecified organism Qualified Code(s): A41.9 - Sepsis, unspecified organism
[2018-12-24] MEDS: *HR* OxyCODONE Immed Rel 5 MG TABLET PO PRN ×2 (03:23→09:32)
[2018-12-24 05:46] LABS: White Blood Count 5.5 K/mcL (4.3-11.1)
[2018-12-24 05:47] LABS: Basophils % 0.4 %; Eosinophils # 0.2 K/mcL (0.0-0.6); Eosinophils % 3.8 %; Hematocrit 30.6 % (35.3-44.9); Hemoglobin 9.6 g/dL (11.5-15.4); Immature Granulocytes % 0.5 % (0-4); Lymphocytes # 1.1 K/mcL (0.6-4.6); Lymphocytes % 20.7 %; Mean Corpuscular HGB Conc 31.4 g/dL (31.6-35.5); Mean Corpuscular Hemoglobin 29.4 pg (28.0-33.3); Mean Corpuscular Volume 93.6 fL (83.0-100.0); Mean Platelet Volume 8.8 fL (9.4-12.4); Monocytes # 0.5 K/mcL (0.0-1.3); Monocytes % 9.1 %; Neutrophils # 3.6 K/mcL (1.6-8.9); Platelet Count 369 K/mcL (140-400); Red Blood Count 3.27 M/mcL (3.82-4.97); Segmented Neutrophils % 65.5 %
[2018-12-24] MEDS: *HR* Heparin 5,000 UNIT/ML VIAL SQ SCH (05:49)
[2018-12-24 06:06] LABS: BUN/Creatinine Ratio 19 (6-26); Blood Urea Nitrogen 19 mg/dL (6-20); Calcium 8.7 mg/dL (8.6-10.3); Carbon Dioxide 31 mEq/L (23-29); Chloride 100 mEq/L (98-107); Glucose 99 mg/dL (70-105); Magnesium 2.3 mg/dL (1.6-2.6); Osmolality,Calculated 290 (280-300); Phosphorous 4.2 mg/dL (2.7-4.5); Potassium 4.2 mEq/L (3.5-5.1); Sodium 139 mEq/L (136-145); eGFR For African Americans > 60 (> 60); eGFR For Non-African Americans > 60 (> 60)
[2018-12-24] MEDS: traMADol 50 MG TABLET PO PRN (07:26)
[2018-12-24] MEDS: Nicotine 14 MG PATCH.TD24 TD SCH (07:27)
[2018-12-24] MEDS ORDERED: Lidocaine -MPF 1% 5 ML AMPUL INFILT ONE (08:11)
--- NOTE | 2018-12-24 10:33 | Discharge Summary ---
- NOTES TO OUTPATIENT PROVIDER Notes to Outpatient Provider: Will need weekly CBC, BUN/Cr, ESR, CRP, and Vanc trough. Will need weekly PICC care per protocol. Follow up with ID 01/07/19 at 1520. Orders not resulted at time of discharge: Pending orders 12/19/18 15:19 AFB Culture, Respiratory [TB] Routine 12/21/18 16:31 Culture,Blood [BC] Stat 12/21/18 16:35 Hepatitis B Core Ab Total Routine 12/24/18 18:00 Vancomycin,Trough Timed Date of Encounter: 12/24/18 Time of Encounter: 10:28 - Discharge Diagnosis (1) Bacteremia Priority: Primary Status: Resolved (2) Anemia Priority: Secondary Status: Chronic Qualifiers: Anemia type: unspecified type Qualified Code(s): D64.9 - Anemia, unspecified (3) Pulmonary cavitary lesion Priority: Secondary Status: Chronic (4) Sepsis Priority: Secondary Status: Resolved Qualifiers: Sepsis type: sepsis due to unspecified organism Qualified Code(s): A41.9 - Sepsis, unspecified organism (5) Substance abuse Priority: Secondary Status: Chronic Hospital course: Ms. Frost is a 33 year old female history of substance use disorder who reportedly quit 7 months ago after being incarcerated and was released 2 months ago but says she has remained clean. She presents to the emergency room complaining of 3 days of generalized malaise, fever, chills, left sided pleuritic chest pain that radiates all the way down her life side. On arrival she was tachycardic but afebrile and normotensive. CT scan was done which showed multifocal nodular lesions, some with central lucency suggesting cavitation or necrosis. Patient admitted to the hospital due to pneumonia, and possible septic emboli. Blood cultures: Grew MRSA. Repeat blood cultures: No growth to date. TTE: no vegetation seen. ID consulted recommended IV vancomycin x4 weeks and to follow up as outpatient on 01/07/19. need weekly CBC, BUN/Cr, ESR, CRP, and Vanc trough. Will need weekly PICC care per protocol. Patient is clinically stable to be discharged. A repeat x-ray in 4 weeks is recommended to confirm resolution of consolidation. If the consolidation persists after antibiotic therapy, then other differentials such as inflammatory non-infectious and neoplastic etiologies should be included in the differentials. - Time Spent with Patient Total time spent providing and/or coordinating discharge services: Time spent: Greater than 30 minutes (35) - Discharge Medications Prescriptions: New Vancomycin HCl 1,250 mg IV Q12H 28 Days #56 vial Home Medications: Vancomycin HCl 1,250 mg IV Q12H 28 Days #56 vial 12/24/18 [Rx] Allergies/Adverse Reactions: Allergy/AdvReac Type Severity Reaction Status Date / Time No Known Allergies Allergy Verified 12/19/18 17:54 Date of admission: 12/19/18 16:34 Primary care physician: Ysabel Gamez Consults: 12/21/18 07:48 Consult to [employer] Developer [CONS] Routine Reason for SW Consult: poss IV ATB, sub abuse 12/21/18 07:57 Consult to Infectious Diseases [CONS] Routine Consulting Provider: Infectious Disease [place] Reason for Consult: MRSA bacteremia, and lung cavitary disease Call Completed: Yes 12/24/18 08:11 Consult to Invasive Line Access Team [CONS] Routine Reason for Consult: Picc Line Insertion Line Type: PICC - Constitutional Vitals: Temp Pulse Resp BP Pulse Ox 98.4 F 92 16 119/76 96 12/24/18 07:18 12/24/18 07:18 12/24/18 07:18 12/24/18 07:18 12/24/18 07:18 Exam: Vitals: Reviewed General: Alert and oriented x4. In no distress Cardiovascular: RRR, normal S1 & S2, no rubs, murmurs or gallops. Lungs: CTA b/l, no wheezes or crackles. Abdomen: Soft, non-tender, no rigidity. NABS in all 4 quadrants Extremities: No edema Neurological: No focal neurological abnormalities Rest of the physical exam is non contributory - Patient Status Disposition: Transfer SNF Condition: Good Functional capacity at discharge: independent ambulation Overall status at discharge: patient is back to baseline - Discharge Instructions Follow Up With: Nicolasa Estes CNP [Advanced Practice Nurse] - 01/07/19 3:20 pm Ysabel Gamez MD [Primary Care Provider] - (ECF) - Diet and Activity Activity: resume usual activities as tolerated Diet: low salt diet
--- NOTE | 2018-12-24 10:54 | Infectious Disease Progress No ---
ID Progress Note Date of Encounter: 12/24/18 Time of Encounter: 09:30 - Subjective Subjective: Patient seen and examined. No acute events noted overnight. Status post CHRISTY 12/22/18 that was negative. States she feels a little bit better. States myalgias are improved. Denies fevers, chills, or rigors. Reports reproducible diffuse chest pain with shortness of breath and a sparse cough that is nonproductive. Denies nausea, vomiting, diarrhea, or abdominal pain. States her last bowel movement was yesterday. Denies urinary complaints. States her appetite is not very good. Denies oral thrush or skin rashes. - Objective CBC & Chem 7: 12/24/18 05:09 12/24/18 05:09 - Exam Vitals: Temp Pulse Resp BP Pulse Ox 98.4 F 92 16 119/76 96 12/24/18 07:18 12/24/18 07:18 12/24/18 07:18 12/24/18 07:18 12/24/18 07:18 Exam: Head: Atraumatic, normal inspection, normocephalic. Eye: EOMI, PERRLA, no scleral icterus noted. No subconjunctival hemorrhage noted. ENT: Mucous membranes moist. No odontogenic infection noted. Neck: Normal inspection, no meningismus. Respiratory: Clear to auscultation, diminished in the bases. Poor respiratory effort. No rales, respiratory distress, rhonchi, or wheezes noted. Cardiovascular: Regular rhythm,regular rate. S1 and S2 audible. No murmurs, rubs, or gallops. Reproducible chest pain noted. GI: Soft, nondistended, normal bowel sounds. Generalized tenderness noted on palpation. Extremities: No joint swelling, pedal edema, or tenderness noted. Neurological: Alert, oriented 3, no focal deficits. Psychiatric: normal affect, normal mood. Skin: Dry, intact, warm. Normal color. No rashes. No endocarditis stigmata noted. Painful lesion to the palmar aspect of the left hand concerning for Osler node. - Assessment and Plan (1) Sepsis Current Visit: Yes Status: Resolved The patient had 2 sepsis criteria. Likely secondary to bacteremia and cavitary lung lesion. Improved. Afebrile. Continues to have some intermittent tachycardia. Blood cultures drawn 12/18/18 are +2 out of 2 sets for MRSA. Repeat blood cultures on 12/19/18 are +2 out of 2 sets. Repeat blood cultures drawn 12/21/18 are NGTD x 2 sets. Qualifiers: Sepsis type: sepsis due to unspecified organism Qualified Code(s): A41.9 - Sepsis, unspecified organism SNOMED Code(s): 64659769 (2) Bacteremia Current Visit: Yes Status: Resolved Causative organism: MRSA. Source: Unclear. The patient does have a history of IV drug use, but states she has been clean for about 7 months. Blood cultures drawn 12/18/18 are +2 out of 2 sets for MRSA. Repeat blood cultures on 12/19/18 are +2 out of 2 sets. Repeat blood cultures drawn 12/21/18 are NGTD x 2 sets. Complicated due to septic emboli in the lungs. Possible Osler node noted to the left hand. Rheumatoid factor elevated. TTE negative for vegetations. CHRISTY negative. The patient has 1 major and 3 minor modified [place] criteria. Currently on vancomycin. SNOMED Code(s): 1790075 (3) Pulmonary cavitary lesion Current Visit: Yes Status: Chronic CTA of the chest showed multifocal parenchymal opacities some of which have cavitation/necrosis. Given the patient's history of IV drug use and MRSA bacteremia, concern for septic emboli. TB is on the differential given the patient's recent incarceration, but less likely. PPD negative. No hemoptysis, night sweats, or weight loss. Continues to have shortness of breath and chest pain with diminished lung sounds. Will get CT of the chest to rule out empyema. 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 Urine drug screen negative. HIV nonreactive. Hep C negative. Hep B immune. The patient states she thinks she got the Hep B vaccinations. SNOMED Code(s): 94266196 - Recommendations Recommendations: Await repeat blood cultures to finalize. Get CT of the chest. Continue vancomycin IV. Pharmacy to dose. Goal trough approximately 15. Monitor renal function for drug toxicity and dose adjust antibiotics. Duration of treatment depends on the clinical picture, but likely 4-6 weeks. career services manager to assist with discharge planning. Okay to consulte VAT for PICC line placement prior to discharge. Will need weekly CBC, BUN/Cr, ESR, CRP, and Vanc trough. Will need weekly PICC care per protocol. Follow up with ID 01/07/19 at 1520. Contact precautions per hospital policy. Consult Discharge Plan - Plan Referrals: Nicolasa Estes CNP [Advanced Practice Nurse] - 01/07/19 3:20 pm Ysabel Gamez MD [Primary Care Provider] - Prescriptions: Vancomycin HCl 1,250 mg IV Q12H 28 Days #56 vial
[2018-12-24 11:19] VITALS: BP 123/79
--- NOTE | 2018-12-24 12:31 | Physician Discharge Referral ---
ExtendedCare Referral Info Transfer To: SNF - Diagnosis (1) Bacteremia Priority: Primary Status: Resolved (2) Anemia Priority: Secondary Status: Chronic (3) Pulmonary cavitary lesion Priority: Secondary Status: Chronic (4) Sepsis Priority: Secondary Status: Resolved (5) Substance abuse Priority: Secondary Status: Chronic Prognosis: Good Aware of Diagnosis: Patient Aware of Prognosis: Patient - Transfer Medications Prescriptions: Vancomycin HCl 1,250 mg IV Q12H 28 Days #56 vial Home Medications: Vancomycin HCl 1,250 mg IV Q12H 28 Days #56 vial 12/24/18 [Rx] Allergies/Adverse Reactions: Allergy/AdvReac Type Severity Reaction Status Date / Time No Known Allergies Allergy Verified 12/19/18 17:54 - Respiratory Orders None Smoking Cessation: Smoking cessation has been advised. For more information, call the [employer] Tobacco Quit Line at 7-472-QAGRNOW. - Advance Directives Code Status: Full Code - Mobility Orders Ambulate - Rehabiliation Orders Rehab Potential: Good Rehab Orders: Evaluation for Physical Therapy, Evaluation for Occupational Therapy - Diet Orders Regular CERTIFICATION: I certify that the transfer of the above named patient to an Extended [facility] is necessary for the continuing treatment of the diagnosis listed. The above information is true and accurate reflection of patient's current condition. Confidential - Redisclosure prohibited without a patient's written consent.
[2018-12-24] MEDS ORDERED: Aminoglycoside Consult 1 EACH MC ONE (13:57)
[2018-12-24 14:47] LABS: Hydrocodone Confirmation <2 ng/mL
[2018-12-25 15:00] LABS: 6_Acetylmorphine Confirmation <2 ng/mL; Oxymorphone Confirmation <2 ng/mL
== END 2018-12-24 13:58 | DRG 720 ==
LOC: 2ANU 18:52 → EMEROOARM 18:52 → 2ANU 12-19 01:05 → SUATTDRO 12-19 16:34
PROVIDERS: ADMIT Internal Medicine; ATTEND Internal Medicine

== ENCOUNTER 2019-01-04 18:03 | Inpatient (IN) ==
[2019-01-04] MEDS ORDERED: 0.9 % Sodium Chloride 1,000 ML IVC ONE (18:13)
--- NOTE | 2019-01-04 18:15 | Emergency Department Note ---
Disposition Clinical Impression: ALEJANDRA (acute kidney injury) Anemia Qualifiers: Anemia type: other cause Other causes of anemia: other cause, not classified Qualified Code(s): D64.89 - Other specified anemias Disposition: Admitted As Inpatient Condition: Fair Time of Disposition: 21:34 General Adult HPI - General Stated complaint: general illness Time Seen by Provider: 01/04/19 18:13 Nursing Notes Reviewed: Yes Vital Signs Reviewed: Yes - Related Data Home Medications Medication Instructions Recorded Confirmed Diclofenac Sodium [Voltaren] 1 appl TP BID PRN 01/04/19 01/04/19 Ibuprofen [Ibu] 800 mg PO Q8H PRN 01/04/19 01/04/19 Vancomycin HCl 1,250 mg IV Q24H 01/04/19 01/04/19 hydrOXYzine pamoate [Vistaril] 25 mg PO HS 01/04/19 01/04/19 Allergies Allergy/AdvReac Type Severity Reaction Status Date / Time No Known Allergies Allergy Verified 12/19/18 17:54 Past Medical History - Past Medical History Medical history: Reports: no medical history Psychiatric history: Reports: no psych history - Social History Smoking Status: Current every day smoker Smokeless Tobacco Status: No Alcohol use: Reports: none Drug use: Reports: none Course Vital Signs Temperature 98.7 F 01/04/19 18:13 Pulse Rate 82 01/04/19 18:13 Respiratory Rate 21 01/04/19 18:13 Blood Pressure 131/96 01/04/19 18:13 O2 Sat by Pulse Oximetry 99 01/04/19 18:13 Temperature 98.7 F 01/04/19 18:13 Pulse Rate 76 01/04/19 19:39 Respiratory Rate 18 01/04/19 19:39 Blood Pressure 133/88 01/04/19 19:39 O2 Sat by Pulse Oximetry 100 01/04/19 19:39 Oxygen Delivery Oxygen Delivery Room Air Medical Decision Making - [facility] Narrative Medical decision making narrative: 1816 hrs.: Patient's hemoglobin has dropped 3 points in the last week and a half. So we will do a stool guaiac on her. - Lab Data Result diagrams: 01/04/19 18:29 01/04/19 18:29 Lab Results 01/04/19 01/04/19 01/04/19 Range/Units 18:29 18:29 18:29 WBC 3.2 L (4.3-11.1) K/mcL RBC 2.38 L (3.82-4.97) M/mcL Hgb 6.9 L (11.5-15.4) g/dL Hct 22.3 L (35.3-44.9) % MCV 93.7 (83.0-100.0) fL MCH 29.0 (28.0-33.3) pg MCHC 30.9 L (31.6-35.5) g/dL RDW 11.9 (11.5-14.5) % Plt Count 257 (140-400) K/mcL MPV 8.9 L (9.4-12.4) fL Immature Gran % 0.6 (0-4) % Seg Neutrophils % 55.6 % Lymphocytes % 26.0 % Monocytes % 8.3 % Eosinophils % 9.5 % Basophils % 0.0 % Neutrophils # 1.8 (1.6-8.9) K/mcL Lymphocytes # 0.8 (0.6-4.6) K/mcL Monocytes # 0.3 (0.0-1.3) K/mcL Eosinophils # 0.3 (0.0-0.6) K/mcL Basophils # 0.0 (0.0-0.2) K/mcL Sodium 140 (136-145) mEq/L Potassium 3.7 (3.5-5.1) mEq/L Chloride 109 H (98-107) mEq/L Carbon Dioxide 25 (23-29) mEq/L BUN 24 H (6-20) mg/dL Creatinine 3.08 H (0.60-1.20) mg/dL Est GFR ( Amer) 21 L (> 60) Est GFR (Non-Af Amer) 18 L (> 60) BUN/Creatinine Ratio 8 (6-26) Glucose 97 (70-105) mg/dL Calculated Osmolality 294 (280-300) Lactic Acid 0.8 (0.5-2.2) mmol/L Calcium 7.7 L (8.6-10.3) mg/dL Urine Color (Yellow) Urine Clarity (Clear) Urine pH (5.0-8.0) pH Units Ur Specific [place] (1.010-1.025) Urine Protein (Neg-Trace) mg/dL Urine Glucose (UA) (Normal) mg/dL Urine Ketones (Negative) mg/dL Urine Blood (Negative) Urine Nitrite (Negative) Urine Bilirubin (Negative) Urine Urobilinogen (Normal) mg/dL Ur Leukocyte Esterase (Negative) Urine Microscopic RBC (0-3) per hpf Urine Microscopic WBC (0-3) per hpf Ur Squamous Epith Cells (None-Few) per lpf Urine Bacteria (None-Few) per hpf Hyaline Casts (None-Few) per lpf Ur Culture Indicated? (NO) Urine Test (Negative) Stool Occult Bld Scrn (Negative) Random Vancomycin 32 mcg/mL Blood Type Antibody Screen Crossmatch 01/04/19 01/04/19 01/04/19 Range/Units 19:00 19:00 19:37 WBC (4.3-11.1) K/mcL RBC (3.82-4.97) M/mcL Hgb (11.5-15.4) g/dL Hct (35.3-44.9) % MCV (83.0-100.0) fL MCH (28.0-33.3) pg MCHC (31.6-35.5) g/dL RDW (11.5-14.5) % Plt Count (140-400) K/mcL MPV (9.4-12.4) fL Immature Gran % (0-4) % Seg Neutrophils % % Lymphocytes % % Monocytes % % Eosinophils % % Basophils % % Neutrophils # (1.6-8.9) K/mcL Lymphocytes # (0.6-4.6) K/mcL Monocytes # (0.0-1.3) K/mcL Eosinophils # (0.0-0.6) K/mcL Basophils # (0.0-0.2) K/mcL Sodium (136-145) mEq/L Potassium (3.5-5.1) mEq/L Chloride (98-107) mEq/L Carbon Dioxide (23-29) mEq/L BUN (6-20) mg/dL Creatinine (0.60-1.20) mg/dL Est GFR ( Amer) (> 60) Est GFR (Non-Af Amer) (> 60) BUN/Creatinine Ratio (6-26) Glucose (70-105) mg/dL Calculated Osmolality (280-300) Lactic Acid (0.5-2.2) mmol/L Calcium (8.6-10.3) mg/dL Urine Color Yellow (Yellow) Urine Clarity Cloudy A (Clear) Urine pH 6.0 (5.0-8.0) pH Units Ur Specific [place] 1.018 (1.010-1.025) Urine Protein 100 H (Neg-Trace) mg/dL Urine Glucose (UA) Normal (Normal) mg/dL Urine Ketones Negative (Negative) mg/dL Urine Blood Large H (Negative) Urine Nitrite Negative (Negative) Urine Bilirubin Negative (Negative) Urine Urobilinogen Normal (Normal) mg/dL Ur Leukocyte Esterase Negative (Negative) Urine Microscopic RBC TNTC H (0-3) per hpf Urine Microscopic WBC 5-15 H (0-3) per hpf Ur Squamous Epith Cells Many H (None-Few) per lpf Urine Bacteria None Seen (None-Few) per hpf Hyaline Casts Few (None-Few) per lpf Ur Culture Indicated? YES A (NO) Urine Test Negative (Negative) Stool Occult Bld Scrn Negative (Negative) Random Vancomycin mcg/mL Blood Type Antibody Screen Crossmatch 01/04/19 Range/Units 20:35 WBC (4.3-11.1) K/mcL RBC (3.82-4.97) M/mcL Hgb (11.5-15.4) g/dL Hct (35.3-44.9) % MCV (83.0-100.0) fL MCH (28.0-33.3) pg MCHC (31.6-35.5) g/dL RDW (11.5-14.5) % Plt Count (140-400) K/mcL MPV (9.4-12.4) fL Immature Gran % (0-4) % Seg Neutrophils % % Lymphocytes % % Monocytes % % Eosinophils % % Basophils % % Neutrophils # (1.6-8.9) K/mcL Lymphocytes # (0.6-4.6) K/mcL Monocytes # (0.0-1.3) K/mcL Eosinophils # (0.0-0.6) K/mcL Basophils # (0.0-0.2) K/mcL Sodium (136-145) mEq/L Potassium (3.5-5.1) mEq/L Chloride (98-107) mEq/L Carbon Dioxide (23-29) mEq/L BUN (6-20) mg/dL Creatinine (0.60-1.20) mg/dL Est GFR ( Amer) (> 60) Est GFR (Non-Af Amer) (> 60) BUN/Creatinine Ratio (6-26) Glucose (70-105) mg/dL Calculated Osmolality (280-300) Lactic Acid (0.5-2.2) mmol/L Calcium (8.6-10.3) mg/dL Urine Color (Yellow) Urine Clarity (Clear) Urine pH (5.0-8.0) pH Units Ur Specific [place] (1.010-1.025) Urine Protein (Neg-Trace) mg/dL Urine Glucose (UA) (Normal) mg/dL Urine Ketones (Negative) mg/dL Urine Blood (Negative) Urine Nitrite (Negative) Urine Bilirubin (Negative) Urine Urobilinogen (Normal) mg/dL Ur Leukocyte Esterase (Negative) Urine Microscopic RBC (0-3) per hpf Urine Microscopic WBC (0-3) per hpf Ur Squamous Epith Cells (None-Few) per lpf Urine Bacteria (None-Few) per hpf Hyaline Casts (None-Few) per lpf Ur Culture Indicated? (NO) Urine Test (Negative) Stool Occult Bld Scrn (Negative) Random Vancomycin mcg/mL Blood Type A POSITIVE Antibody Screen NEGATIVE Crossmatch See Detail Attestation Statement - Attestation Attestation: This documentation is done with the assistance of Dragon dictation. Despite efforts made to ensure accuracy, there may be inaccuracies in dynamic balancer or spelling and typographical errors. I examined this patient and my medical decision-making was reviewed with the Resident Physician. I agree with the documented findings, disposition and treatment plan as described except to the extent set forth below. Patient was seen and evaluated by Dr. Campos and myself, I agree with his evaluation and management plan, I supervised the care the patient throughout her stay. Patient comes in from [facility] by EMS. She had labs drawn couple days ago at the [facility] she is on vancomycin IV due to MRSA and her blood. She states she has been feeling fine no fevers that she is aware of but they did note that her creatinine had increased up into the 3 range. Ask for this happened before she said no this is possibly due to the vancomycin her something else. We will order a workup on her hydrate her and then reassess. She will need admission. She is in agreement with plan.
--- NOTE | 2019-01-04 18:54 | Emergency Department Note ---
Disposition Clinical Impression: ALEJANDRA (acute kidney injury) Anemia Qualifiers: Anemia type: other cause Disposition: Admitted As Inpatient Condition: Fair Time of Disposition: 20:30 General Adult HPI - General Chief complaint: ED Recheck/Abnormal Lab/Rx Stated complaint: general illness Time Seen by Provider: 01/04/19 18:13 Source: EMS - History of Present Illness HPI Narrative: 33-year-old female with recent history of MRSA infection of blood, likely secondary to a dental abscess with septic emboli in the lungs, currently in a rehabilitation facility to receive IV vancomycin treatment presented to the ED today after a creatinine taken 4 days ago at her rehabilitation facility came back today elevated. She reports ongoing epigastric pain reports it is constant and worse with movement and with cough she has tried ibuprofen with no relief and has not found any other relieving factors. She also reports mild headache . She denies any vomiting, lightheadedness, dizziness or visual changes, cough, hemoptysis, or black stool/bloody stool, diarrhea, constipation. Denies any new chest pain palpitations or shortness of breath, however, does report her chest pain that she experienced with the septic emboli is ongoing and unchanged. She reports that a vancomycin level drawn at the rehabilitation facility came back over 200, and as a result was switched from twice a day vancomycin to once daily. Her last dose was last night. At the time of her initial presentation she was also found to have lower extremity edema in the left leg, a duplex ultrasound performed at her rehabilitation facility was reportedly normal, and the edema to her left calf has largely resolved. Pain Scale: 3 - Related Data Previous Rx's Medication Instructions Recorded Vancomycin HCl 1,250 mg IV Q12H 28 Days #56 vial 12/24/18 Allergies Allergy/AdvReac Type Severity Reaction Status Date / Time No Known Allergies Allergy Verified 12/19/18 17:54 All systems ED: reviewed and negative except as stated. Review of Systems: As Per HPI Past Medical History - Past Medical History Medical history: Reports: no medical history Psychiatric history: Reports: no psych history - Social History Smoking Status: Current every day smoker Smokeless Tobacco Status: No Alcohol use: Reports: none Drug use: Reports: none Physical Exam - General General appearance: alert, in no apparent distress - Head Head exam: atraumatic, normocephalic - Eye Eye exam: Present: normal appearance, PERRL - ENT ENT exam: mucous membranes moist - Chest Chest inspection: Present: symmetric chest wall rise - Respiratory Respiratory exam: Present: normal lung sounds bilaterally. Absent: wheezes, stridor - Cardiovascular Cardiovascular exam: Present: regular rate, normal rhythm, normal heart sounds - Abdominal Exam Abdominal exam: Present: soft, tenderness (Epigastric, mild. Right upper quadrant and left upper quadrant). Absent: distention, guarding, rebound, rigidity - Rectal Exam Framing Mill Operator Helper present during exam: Yes (Sunita Martinez, Med Student) Rectal exam: Present: normal rectal tone, other (Small amount of hard stool in the rectal vault, no gross blood on exam). Absent: black stool, bloody stool, fecal impaction, hemorrhoids, mass, tenderness - Extremities Exam Extremities exam: Present: normal capillary refill, calf tenderness (Left-sided, mild). Absent: tenderness, pedal edema - Back Exam Back exam: Present: CVA tenderness (R) (Severe), CVA tenderness (L) (Severe) - Neurological Exam Neurological exam: Present: alert, oriented X3, CN II-XII intact. Absent: motor sensory deficit - Psychiatric Psychiatric exam: Present: normal affect, normal mood - Skin Skin exam: Present: warm, dry, intact, normal color Course - Reevaluation(s) Reevaluation #1: Patient's clinical picture including symptoms and exam remained unchanged. I clarified with patient that she has NOT been experiencing nausea and vomiting. Discussed the risks and benefits associated with a rectal exam, patient consented to rectal exam Time: 19:30 Reevaluation #2: Discussed lab results with patient and mom at bedside, discussed risk and benefits of transfusion and patient is onboard with plan to transfuse. Time: 20:22 - Consultations Consultation #1: Spoke with Dr. Eliceo HAGEN of infectious disease. He advises hold all antibiotics for now, and he will see the patient in the morning. Time: 20:02 Vital Signs Temperature 98.7 F 01/04/19 18:13 Pulse Rate 82 01/04/19 18:13 Respiratory Rate 21 01/04/19 18:13 Blood Pressure 131/96 01/04/19 18:13 O2 Sat by Pulse Oximetry 99 01/04/19 18:13 Temperature 98.7 F 01/04/19 18:13 Pulse Rate 82 01/04/19 18:13 Respiratory Rate 21 01/04/19 18:13 Blood Pressure 131/96 01/04/19 18:13 O2 Sat by Pulse Oximetry 99 01/04/19 18:13 Oxygen Delivery Oxygen Delivery Room Air Medical Decision Making - MDM Narrative Medical decision making narrative: Patient's clinical presentation remained stable throughout ED visit. Her report of a vancomycin level over 200 at the rehabilitation facility, along with our random vancomycin level of 32 in the context of an elevated creatinine makes this confident that we are looking at vancomycin induced acute kidney injury. Dr. Aranda of infectious disease and the hospitalist team have been consulted, and all agree on a plan to rehydrate the patient, give a transfusion while here in the ED, and admit to medicine with ID follow-up in the morning. Vital Signs Temperature 98.7 F 01/04/19 18:13 Pulse Rate 82 01/04/19 18:13 Respiratory Rate 21 01/04/19 18:13 Blood Pressure 131/96 01/04/19 18:13 O2 Sat by Pulse Oximetry 99 01/04/19 18:13 Temperature 98.7 F 01/04/19 18:13 Pulse Rate 76 01/04/19 19:39 Respiratory Rate 18 01/04/19 19:39 Blood Pressure 133/88 01/04/19 19:39 O2 Sat by Pulse Oximetry 100 01/04/19 19:39 Oxygen Delivery Oxygen Delivery Room Air - Medical Records Medical records reviewed: Yes I reviewed the patient's medical records. - Lab Data Lab results reviewed: Yes I reviewed the patient's lab results.
[2019-01-04 18:57] LABS: Eosinophils # 0.3 K/mcL (0.0-0.6); Eosinophils % 9.5 %; Hematocrit 22.3 % (35.3-44.9); Hemoglobin 6.9 g/dL (11.5-15.4); Immature Granulocytes % 0.6 % (0-4); Lymphocytes # 0.8 K/mcL (0.6-4.6); Mean Corpuscular HGB Conc 30.9 g/dL (31.6-35.5); Mean Corpuscular Volume 93.7 fL (83.0-100.0); Mean Platelet Volume 8.9 fL (9.4-12.4); Monocytes # 0.3 K/mcL (0.0-1.3); Monocytes % 8.3 %; Neutrophils # 1.8 K/mcL (1.6-8.9); Platelet Count 257 K/mcL (140-400); Red Blood Count 2.38 M/mcL (3.82-4.97); Red Cell Distribution Width 11.9 % (11.5-14.5); Segmented Neutrophils % 55.6 %; White Blood Count 3.2 K/mcL (4.3-11.1)
[2019-01-04 19:14] LABS: Bilirubin,Urine Negative (Negative); Blood,Urine Large (Negative); Clarity,Urine Cloudy (Clear); Color,Urine Yellow (Yellow); Glucose,Urine (UA) Normal (Normal); Ketones,Urine Negative (Negative); Leukocyte Esterase,Urine Negative (Negative); Nitrite,Urine Negative (Negative); Protein,Urine 100 mg/dL (Neg-Trace); Specific Gravity,Urine 1.018 (1.010-1.025); Urobilinogen,Urine Normal (Normal)
[2019-01-04 19:16] LABS: Bacteria,Urine None Seen per hpf (None-Few); Hyaline Casts,Urine Few per lpf (None-Few); RBC,Urine TNTC per hpf (0-3); Squamous Epithelial Cell,Urine Many per lpf (None-Few)
[2019-01-04 19:21] LABS: Calcium 7.7 mg/dL (8.6-10.3); Potassium 3.7 mEq/L (3.5-5.1)
[2019-01-04] MEDS ORDERED: Acetaminophen 325 MG TABLET PO ONE (21:36)
--- NOTE | 2019-01-04 21:38 | Internal Med History&Physical ---
<Gerardo Cochran - Last Filed: 01/05/19 03:36> Date of Encounter: 01/05/19 Time of Encounter: 22:57 Internal Medicine - H&P: HPI Chief complaint: ALEJANDRA Admitted From: Emergency Dept Plans for Post Hospital Care: Home History of present illness: Ms. Frost is a 33 year old female with past medical history of IV drug use presents to the emergency department from her rehabilitation facility after routine blood works on elevated creatinine level and decreased hemoglobin. Patient was recently admitted from 12/19/18-12/24/18 for MRSA bacteremia secondary to unclear source, possibly dental abscess. Patient states that she has been doing well since her discharge is currently having no complaints of fevers, chills, difficulty breathing, cardiac chest pain, nausea, vomiting. She states that she has been urinating normally with no dysuria, frequency, urgency or decreased urine output. Her bowel movements have been within normal limits without evidence of blood. She states that her menstrual cycle varies but she believes her last menstrual period to be approximately 2 months ago. She states it is intermittently heavy/light. She is in no previous history of anemia. She states she has been eating and drinking well. Patient states that she has been clean of heroin, methamphetamine, cocaine use for the past 9 months. Infectious disease was consulted during previous admission who recommended vancomycin 4 weeks. She is scheduled follow-up with infectious disease on 01/07/19. She also had a primary care provider follow-up recommended. Home medications include ibuprofen 800 mg every 8 hours. Per discharge summary, recommended weekly BMP levels but no order placed. In the emergency department, vital signs are significant for respiratory rate of 21. Laboratory results show leukopenia 3.2, anemia with hemoglobin of 6.9, BUNs/creatinine of 24/3.08, urinalysis shows blood, WBCs, many epithelial cells. Stool occult blood screen was negative. Vancomycin random was 32. At time of my interview, patient states that she is feeling well but is admitting to some chest pains. Chest pain is located in the left anterior chest wall pain is reproducible. Past medical history: Bacteremia as above Past surgical history: Tubal ligation Social history: One pack per day smoker, denies alcohol use, former polysubstance abuse, clean for 9 months. Family history: Distant history of breast/skin cancer. Past Med Surg Social Fam HX - Past Medical History Medical history: no medical history Psychiatric history: no psych history - Past Surgical History Additional surgical history: Ear Tubes, Tubal ligation,Tonsillectomy - Social History Smoking Status: Current every day smoker Smokeless Tobacco Status: No Alcohol use: none Drug use: none Internal Medicine - H&P: Meds Diclofenac Sodium [Voltaren] 1 appl TP BID PRN 01/04/19 [History] Ibuprofen [Ibu] 800 mg PO Q8H PRN 01/04/19 [History] Vancomycin HCl 1,250 mg IV Q24H 01/04/19 [History] hydrOXYzine pamoate [Vistaril] 25 mg PO HS 01/04/19 [History] Allergy/AdvReac Type Severity Reaction Status Date / Time No Known Allergies Allergy Verified 12/19/18 17:54 All Systems PM: A 10-system review of systems was performed and is negative for pertinent findings except as documented above in the HPI. Review of systems: - Constitutional: Denies fevers, chills, weight loss, generalized fatigue - Head/Neck: Denies CALIX, neck stiffness - EENT: Denies vision changes/blurriness, tinnitus, auditory changes, rhinorrhea, congestion, sore throat - CVS: Denies chest pain, palpitations, STEVENSON, orthopnea, edema, PND, - Pulm: Denies SOB, cough, sputum, hematemesis, wheezing - GI: Denies abdominal pain, anorexia, nausea, vomiting, diarrhea, constipation, melena - : Denies dysuria, increased frequency, urgency, hematuria, - MSK: Denies joint pain, limited ROM - Skin: Denies rashes, ulcers, color changes, - Neuro: Denies CALIX, paresthesias, focal deficits, ataxia, - Constitutional Vitals: Temp Pulse Resp BP Pulse Ox 98.7 F 73 18 132/90 98 01/04/19 18:13 01/04/19 21:33 01/04/19 21:33 01/04/19 21:33 01/04/19 21:33 Exam: Gen.: Vitals noted. No acute distress. AAOx3, resting comfortably in bed. HEENT: PERRL/EOMI, oropharynx clear, Normocephalic, atraumatic, MMM, poor dentition Cardiac: RRR, no murmur, +S1/S2, No BLE edema Pulmonary: CTA bilaterally, no wheezes, rales or rhonchi, equal chest expansion, unlabored breathing Abdomen: soft, tender to palpation in right upper quadrant, epigastric, left upper quadrant, BS noted, no guarding, no palpable HSM Back: Nontender throughout. Skin: warm and dry, no visible lesions. MSK: ROM intact, no joint swelling noted, gait no assessed while in bed. Non tender calf or clubbing Neuro: A&Ox3, moves all extremities, no focal deficits, sensation intact, Psych: Appropriate mood and behavior, AOx3 Internal Med - H&P Results - Labs CBC & Chem 7: 01/04/19 18:29 01/04/19 18:29 Labs: Short CBC 01/04/19 Range/Units 18:29 WBC 3.2 L (4.3-11.1) K/mcL Hgb 6.9 L (11.5-15.4) g/dL Hct 22.3 L (35.3-44.9) % Plt Count 257 (140-400) K/mcL Neutrophils # 1.8 (1.6-8.9) K/mcL BMP 01/04/19 18:29 Sodium 140 Potassium 3.7 Chloride 109 H Carbon Dioxide 25 BUN 24 H Creatinine 3.08 H Glucose 97 Calcium 7.7 L Urine 01/04/19 Range/Units 19:00 Urine Color Yellow (Yellow) Urine Clarity Cloudy A (Clear) Urine pH 6.0 (5.0-8.0) pH Units Ur Specific [place] 1.018 (1.010-1.025) Urine Protein 100 H (Neg-Trace) mg/dL Urine Glucose (UA) Normal (Normal) mg/dL - Assessment and Plan (1) ALEJANDRA (acute kidney injury) Current Visit: Yes Status: Acute Assessment and plan: - Evidence of acute kidney function with BUNs/creatinine of 24/3.08 - Etiology likely secondary to supratherapeutic vancomycin dosing - Recommend a vancomycin level of 32 - Patient does not have documented outpatient follow-up labs - UA shows few hyaline casts, large blood Plan - We will continue supportive care with fluids at 75 per hour - We will not continue vancomycin - Daily labs, renal dosing (2) Anemia Current Visit: Yes Status: Acute Assessment and plan: - Acute anemia with H/H of 6.9/22.3 - Baseline hemoglobin appears to be 9-13 - Patient notably had a hemoglobin of 9.6 on discharge on 12/24/18 - Patient denies any signs or symptoms of bleeding at this time - Etiology is unclear but may be related to menstrual bleeding given age. She states she does sometimes have heavy menstrual cycles but has not had a menstrual cycle approximately 2 months - FOBT performed in emergency room, negative blood Plan - We will transfuse 1 unit of PRBCs - Recheck hemoglobin in the morning - Check iron studies, B12, folate - Consider GI workup pending results Qualifiers: Anemia type: other cause Other causes of anemia: other cause, not classified Qualified Code(s): D64.89 - Other specified anemias (3) History of bacteremia Current Visit: Yes Status: Acute Assessment and plan: - Patient with MRSA bacteremia on 12/18 and 12/19 - Patient does have negative blood cultures on 12/21 - Scheduled to follow up with ID on 01/07/19 - Patient was discharged on vancomycin as above - ID was consulted in the emergency room, will see in the a.m. Plan - Will not start additional antibiotics at this time as patient is supratherapeutic on her vancomycin level - Today would be day 16 of current treatment - Was previously prescribed 4 weeks of treatment - ID consulted (4) History of substance abuse Current Visit: Yes Status: Chronic Assessment and plan: - Patient reports previous history of methamphetamine, cocaine, heroin abuse - Patient reports 9 months clean (5) DVT prophylaxis Current Visit: Yes Status: Acute Assessment and plan: Subcutaneous heparin - Time Spent With Patient Total time spent is greater than 50% in coordination of care (as documented) at patient's floor/unit and/or counseling patient: <Marguerite Rodriguez Andi - Last Filed: 01/07/19 12:45> Date of Encounter: 01/04/19 Internal Medicine - H&P: HPI History of present illness: Ms. Frost is a 33 year old female All Systems PM: A 10-system review of systems was performed and is negative for pertinent findings except as documented above in the HPI. - Constitutional Vitals: Temp Pulse Resp BP Pulse Ox 98.7 F 72 14 145/94 97 01/07/19 07:49 01/07/19 07:49 01/07/19 07:49 01/07/19 07:49 01/07/19 07:49 Internal Med - H&P Results - Labs CBC & Chem 7: 01/07/19 05:30 01/07/19 05:30 Labs: Short CBC 01/07/19 Range/Units 05:30 WBC 4.4 (4.3-11.1) K/mcL Hgb 8.5 L (11.5-15.4) g/dL Hct 26.0 L (35.3-44.9) % Plt Count 201 (140-400) K/mcL BMP 01/07/19 05:30 Sodium 140 Potassium 3.8 Chloride 111 H Carbon Dioxide 21 L BUN 17 Creatinine 2.27 H Glucose 84 Calcium 7.5 L Liver Function 01/07/19 Range/Units 05:30 Total Bilirubin 0.3 (0.3-1.0) mg/dL AST 48 H (13-39) Units/L ALT 35 (7-52) Units/L Alkaline Phosphatase 51 (34-104) Units/L Albumin 2.5 L (3.5-5.7) g/dL - Impressions ITS Impressions Chest X-Ray 01/05/19 09:54 IMPRESSION: Reduction in the airspace disease, pleural effusion and nodular densities from presumed septic emboli. There is residual basilar airspace disease still greater on the right and faint visualization of nodular density greater right parahilar. D/ / Nolan Engel MD / Nolan Engel MD Interpreting Provider: Nolan Engel MD Abdomen Ultrasound 01/05/19 15:00 IMPRESSION: 1. Diffuse gallbladder wall thickening. Findings are nonspecific for acute cholecystitis. 2. Increased echogenicity of the right kidney suggestive of medical renal disease. 3. Trace right upper quadrant ascites. D/ / Bri Mortensen MD / Bri Mortensen MD Interpreting Provider: Bri Mortensen MD Retroperitoneum Ultrasound 01/05/19 15:00 IMPRESSION: Increased renal cortical echogenicity relative to the liver and spleen can be seen with medical renal disease but is nonspecific. Questioned cellular debris layering dependently in the urinary bladder. No acute abnormality. D/ / Nolan Engel MD / Nolan Engel MD Interpreting Provider: Nolan Engel MD Bile Acid Absorption NM 01/05/19 18:20 IMPRESSION: 1. No scintigraphic findings of acute cholecystitis. Evaluation for chronic cholecystitis is limited by lack of evaluation of ejection fraction. 2. Delayed clearance of activity from the liver suggestive of underlying hepatocellular dysfunction. 3. Delayed small bowel visualization is nonspecific and may be a normal variant but may also be seen in biliary dyskinesia and partial common duct obstruction. D/ / Jorge Negrete MD / Jorge Negrete MD Interpreting Provider: Jorge Negrete MD - Assessment and Plan (1) Anemia Current Visit: Yes Status: Acute Qualifiers: Anemia type: other cause Other causes of anemia: other cause, not classified Qualified Code(s): D64.89 - Other specified anemias (2) ALEJANDRA (acute kidney injury) Current Visit: Yes Status: Acute (3) History of bacteremia Current Visit: Yes Status: Acute (4) DVT prophylaxis Current Visit: Yes Status: Acute (5) Vancomycin poisoning Current Visit: Yes Status: Acute - Time Spent With Patient Total time spent is greater than 50% in coordination of care (as documented) at patient's floor/unit and/or counseling patient: - Attending Attestation I performed a history and physical examination of the patient and discussed his management with the resident. I reviewed the residents note and agree with the documented findings and plan of care.
[2019-01-04] MEDS ORDERED: Ondansetron 4 MG/2 ML VIAL IVP PRN (22:52)
[2019-01-04] MEDS ORDERED: Naloxone 0.4 MG/ML INJ IVP PRN (22:52)
[2019-01-04] MEDS ORDERED: Acetaminophen 325 MG TABLET PO PRN (22:52)
[2019-01-04] MEDS ORDERED: (Diclofenac Sodium [Voltaren] 1 APPL) TP PRN (22:56)
[2019-01-04] MEDS ORDERED: 0.9 % Sodium Chloride 1,000 ML IVC SCH (23:00)
[2019-01-04] MEDS ORDERED: 0.9 % Sodium Chloride 250 ML ONE (23:10)
[2019-01-04] MEDS ORDERED: SODIUM CHLORIDE 0.9% IVPB SCH (23:45)
[2019-01-04] MEDS ORDERED: DAPTOMYCIN IVPB SCH (23:45)
[2019-01-05 04:53] LABS: Basophils % 0.3 %; Eosinophils # 0.3 K/mcL (0.0-0.6); Eosinophils % 9.5 %; Hematocrit 24.3 % (35.3-44.9); Hemoglobin 7.7 g/dL (11.5-15.4); Immature Granulocytes % 0.6 % (0-4); Lymphocytes # 0.9 K/mcL (0.6-4.6); Lymphocytes % 25.3 %; Mean Corpuscular HGB Conc 31.7 g/dL (31.6-35.5); Mean Corpuscular Hemoglobin 29.3 pg (28.0-33.3); Mean Corpuscular Volume 92.4 fL (83.0-100.0); Mean Platelet Volume 9.1 fL (9.4-12.4); Monocytes # 0.3 K/mcL (0.0-1.3); Monocytes % 8.3 %; Neutrophils # 1.9 K/mcL (1.6-8.9); Platelet Count 218 K/mcL (140-400); Red Blood Count 2.63 M/mcL (3.82-4.97); Red Cell Distribution Width 12.4 % (11.5-14.5); White Blood Count 3.4 K/mcL (4.3-11.1)
[2019-01-05 05:00] LABS: INR 1.1; Prothrombin Time 12.7 Seconds (9.4-12.1)
[2019-01-05 05:03] LABS: Activated Partial Thrombo Time 28.5 Seconds (26.0-36.0)
[2019-01-05 05:13] LABS: Calcium 7.3 mg/dL (8.6-10.3); Magnesium 1.7 mg/dL (1.6-2.6); Potassium 3.8 mEq/L (3.5-5.1)
[2019-01-05 05:37] LABS: Folate 9.4 ng/mL (3.0-16.0)
[2019-01-05] MEDS: *HR* Heparin 5,000 UNIT/ML VIAL SQ SCH ×2 (06:02→19:42)
--- NOTE | 2019-01-05 09:46 | Infectious Disease Consult ---
Infectious Disease-Consult - Encounter Date/Time Date of Encounter: 01/05/19 Time of Encounter: 09:42 - Data of Consult Patient: known to practice within the last 3 years Reason for consult: MRSA on vanco with ALEJANDRA Consult date: 01/05/19 Requesting Physician: Candie Singh Primary Care Provider: Ysabel Gamez - [facility] HPI: MS. Frost is a 33-year-old female with a past medical history of IV drug use with last use 9 months ago and MRSA bacteremia currently on vancomycin. The patient was admitted to the hospital 01/04/19 with acute kidney injury. We are consulted 01/05/19 for further workup and treatment recommendations for MRSA bacteremia. Excellent briefly, the patient is a 33-year-old female, known to the infectious disease service as we have been consulted on her case in the past and were following her as an outpatient. The patient was previously admitted to the hospital 12/18/18 when she is diagnosed with MRSA bacteremia with septic emboli to the lung. She underwent a transthoracic echocardiogram that was negative for valvular vegetations. She then underwent a CHRISTY that was also negative. She was discharged to a local extended care facility to complete a four-week course of IV vancomycin. Last week, our office was notified that her vancomycin trough was greater than 50. We requested additional labs including repeat Vanco trough and renal panel. These were not sent to the office and I was notified yesterday that the patient's renal function had significantly declined. We advised the patient come to the ER for further evaluation and treatment. Upon arrival, the patient was afebrile and hemodynamically stable. She is leukopenic. Her creatinine was 3.08. Lactic acid was normal. Random vancomycin level was 32. Urinalysis was negative for pyuria. Repeat blood cultures were drawn and are pending 2 sets. She was noted to be anemic with hemoglobin of 6.9. She was transfused 1 unit of packed red blood cells and was admitted to the hospital for further evaluation and treatment. Since admission, the patient has remained afebrile and hemodynamically stable. Her creatinine is improved to 2.96 today. She is not currently on any antibiotics. We have been asked to evaluate and make further recommendations. During my exam today, the patient states that overall she is actually been doing very well. She denies any fevers or chills or rigors. Reports some intermitte nt headaches, but denies any neck pain. Denies congestion, earache, or sore throat. Denies chest pain, shortness of breath, or cough. She does endorse bilateral anterior posterior rib pain that is worse with cough or deep inspiration. She denies any hemoptysis, night sweats, or weight loss. She denies nausea, vomiting, diarrhea, or constipation. Denies abdominal pain or urinary complaints. Denies back, joint, or extremity pain. Denies oral thrush or skin rashes. States her IV line has been working well and she has been 100% compliant with her medications. The patient has been staying at a local extended care facility. 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 She smokes about a pack of cigarettes per day. Denies alcohol or recent illicit drug use. She denies chronic infectious diseases. Previous HIV and hepatitis B and C testing were negative. She denies recent travel. She denies any pet or animal exposures. - ROS Review of Systems: All systems reviewed and no additional remarkable complaints except as stated. - Results CBC & Chem 7: 01/06/19 04:00 01/06/19 04:00 - Exam Vitals: Temp Pulse Resp BP Pulse Ox 98.9 F 66 14 127/89 97 01/05/19 06:51 01/05/19 06:51 01/05/19 06:51 01/05/19 06:51 01/05/19 06:51 Exam: Head: Atraumatic, normal inspection, normocephalic. Eye: EOMI, PERRLA, no scleral icterus noted. No subcutaneous conjunctival hemorrhage noted. ENT: Mucous membranes moist. No odontogenic infection noted. Neck: Normal inspection, no meningismus. Respiratory: Clear to auscultation. No rales, respiratory distress, rhonchi, or wheezes noted. Tenderness noted with palpation of the anterior posterior bilateral ribs. Cardiovascular: Regular rate and rhythm, S1 and S2 audible. No murmurs, rubs, or gallops. GI: Soft, nondistended, normal bowel sounds. Tenderness noted with palpation of the epigastric, right upper quadrant, and left upper quadrants. Extremities:No joint swelling, pedal edema, or tenderness noted. PICC line noted to the left upper extremity is transparent dressing clean, dry, and intact. Back: Normal inspection. No vertebral tenderness noted. Neurological: Alert, oriented 3, no focal deficits. Psychiatric: normal affect, normal mood. Skin: Dry, intact, warm. Normal color. No rashes. No endocarditis stigmata noted. Diclofenac Sodium [Voltaren] 1 appl TP BID PRN 01/04/19 [History] Ibuprofen [Ibu] 800 mg PO Q8H PRN 01/04/19 [History] Vancomycin HCl 1,250 mg IV Q24H 01/04/19 [History] hydrOXYzine pamoate [Vistaril] 25 mg PO HS 01/04/19 [History] Allergy/AdvReac Type Severity Reaction Status Date / Time No Known Allergies Allergy Verified 12/19/18 17:54 - Assessment and Plan (1) ALEJANDRA (acute kidney injury) Current Visit: Yes Status: Acute Likely secondary to vancomycin toxicity. Vancomycin trough last week was greater than 50. Random vancomycin level on admission was 32. Creatinine 3.08 on admission. Improved to 2.96 today. Nephrology consulted. Appreciate recommendations. Antibiotics currently on hold. SNOMED Code(s): 41199805, 38793792 (2) Rib pain Current Visit: Yes Status: Acute Location: Bilateral, anterior and posterior. Etiology: Unclear. Will get CXR to evaluate. SNOMED Code(s): 041814935 (3) History of bacteremia Current Visit: Yes Status: Acute Causative organism: MRSA. Source: Unclear. The patient does have a history of IV drug use, but states she has been clean for about 7 months. Blood cultures drawn 12/18/18 are +2 out of 2 sets for MRSA. Repeat blood cultures on 12/19/18 are +2 out of 2 sets. Repeat blood cultures drawn 12/21/18 are NGTD x 2 sets. Complicated due to septic emboli in the lungs. Rheumatoid factor elevated. TTE negative for vegetations. CHRISTY negative. The patient had 1 major and 3 minor modified [place] criteria. Plan to treat through 01/18/19. Repeat blood cultures on 01/04/19 are pending 2 sets. No evidence of recurrence of infection as the patient is without sepsis criteria. SNOMED Code(s): 509955500 (4) History of substance abuse Current Visit: Yes Status: Chronic Reports history of IV heroin use with last use about 9 months ago. HIV nonreactive. Hep C negative. Hep B immune. The patient states she thinks she got the Hep B vaccinations. SNOMED Code(s): 268788290 (5) Anemia Current Visit: Yes Status: Acute Hemoglobin 6.9 on admission. Possibly secondary to acute kidney injury. Fecal occult blood test was negative. Improved after 1 unit of packed red cells. Further workup and management per the primary team. Qualifiers: Anemia type: other cause Other causes of anemia: other cause, not classified Qualified Code(s): D64.89 - Other specified anemias SNOMED Code(s): 224680505 - Recommendations Recommendations: Get Chest x-ray. Await repeat blood cultures. Continue to trend vancomycin levels. Continue to monitor renal function closely. Await further recommendations from the nephrology team. Hold antibiotics until vancomycin level therapeutic/subtherapeutic. We will likely restart treatment with IV daptomycin once the patient becomes subtherapeutic on her Vanco level. Duration of treatment depends on the clinical picture, likely through 01/18/19. Monitor renal function and dose adjust antibiotics. Contact precautions per hospital policy. Past Med Surg Social Fam HX - Past Medical History Medical history: no medical history Additional medical history: PE, Substance abuse Psychiatric history: no psych history - Past Surgical History Additional surgical history: Ear Tubes, Tubal ligation,Tonsillectomy - Social History Smoking Status: Current every day smoker Smokeless Tobacco Status: No Alcohol use: none Drug use: none Consult Discharge Plan - Plan Referrals: Ysabel Gamez MD [Primary Care Provider] - - Attending Attestation I have personally performed a face to face evaluation on this patient. I have reviewed and agree with the care plan. History and Exam by me shows: Assessment and plan: 1.MRSA bacteremia secondary to IV drug use with septic emboli to the lungs 2.IV drug user 3.Acute kidney injury secondary to vancomycin toxicity 4.Anemia Recommendations Get Chest x-ray. Await repeat blood cultures. Continue to trend vancomycin levels. Continue to monitor renal function closely. Await further recommendations from the nephrology team. Hold antibiotics until vancomycin level therapeutic/subtherapeutic. We will likely restart treatment with IV daptomycin once the patient becomes subtherapeutic on her Vanco level. Duration of treatment depends on the clinical picture, likely through 01/18/19. Monitor renal function and dose adjust antibiotics. Contact precautions per hospital policy.
[2019-01-05] MEDS: Nicotine 21 MG PATCH.TD24 TD SCH (10:45)
[2019-01-05] MEDS: Pantoprazole 40 MG VIAL IVP SCH (10:45)
--- NOTE | 2019-01-05 12:15 | Nephrology Consult Note ---
<Sandra Hilarioekcynthia Lopez - Last Filed: 01/05/19 13:47> Date of Encounter: 01/05/19 Time of Encounter: 12:06 Assessment and Plan (1) ALEJANDRA (acute kidney injury) Status: Acute Normal kidney function in the past. ALEJANDRA most likely related to IV vancomycin. NSAID use at home could be a contributing factor as well. Serum and urine studies ordered. Retroperitoneal ultrasound ordered. Strict I&O. Force fluids. Avoid nephrotoxins and renal dose all medications. (2) Anemia Status: Acute Hemoglobin is 7.7 up from 6.9. S/P 1 unit PRBC. We will defer transfusions to primary team. Qualifiers: Anemia type: other cause Other causes of anemia: other cause, not classified Qualified Code(s): D64.89 - Other specified anemias (3) History of bacteremia Status: Acute Per infectious disease. (4) History of substance abuse Status: Chronic Per primary. (5) Dehydration Status: Acute Continue IV fluid, rate increased to 150 an hour. (6) Hypocalcemia Status: Acute Calcium noted to be 7.3, ionized calcium ordered. History of Present Illness - Reason for Consult Consult date: 01/05/19 Acute Kidney Injury Requesting physician: Candie Singh - Chief Complaint acute kidney function - History of Present Illness Ms. Frost is a 33-year-old female with a PMH of IV drug use with last use approximately 9 months ago. She is currently being treated for MRSA bacteremia and was on IV vancomycin. She was being treated outpatient by infectious d dimple, but was told to come to the ER with decreased renal function. She has no previous history of chronic kidney disease or ever being on hemodialysis. She has never been told she has any kidney issues in in the past. She admits to using NSAIDs frequently at home. She reports she takes 800 mg by mouth twice a day as needed for musculoskeletal pain. I did advise her to switch to Tylenol due to her recent kidney issues. She denies any urinary symptoms such as frequency, urgency or hematuria. She did not notice a decrease in her urinary output at home. She denies any flank pain on exam. She denies any nausea, vomiting or diarrhea. She denies shortness of breath but admits to some chest pain. He lives at home with her mother when she is not in an extended care facility. She is a current 1 pack a day smoker. She denies any EtOH or illicit drug use in the past 9 months. She denies any FH of CKD or HD. Past Med Surg Social Fam HX - Past Medical History Medical history: no medical history Additional medical history: PE, Substance abuse Psychiatric history: no psych history - Past Surgical History Additional surgical history: Ear Tubes, Tubal ligation,Tonsillectomy - Social History Smoking Status: Current every day smoker Smokeless Tobacco Status: No Alcohol use: none Drug use: none Medications and Allergies hydrOXYzine pamoate [Vistaril] 25 mg PO HS 01/04/19 [History] Linezolid [Zyvox] 600 mg PO BID 6 Days #12 tablet 01/11/19 [Rx] Nicotine Patch [Nicoderm] 21 mg TD DAILY #15 patch.td24 01/11/19 [Rx] Pantoprazole Sodium 40 mg PO DAILY #30 tablet. 01/11/19 [Rx] Allergy/AdvReac Type Severity Reaction Status Date / Time No Known Allergies Allergy Verified 12/19/18 17:54 Review of Systems All Systems review (narrative): The remainder of the systems are negative. Constitutional: no chills, no fatigue, no fever(s) Cardiovascular: chest pain, no dyspnea Respiratory: no dyspnea, no hemoptysis Gastrointestinal: no diarrhea, no nausea, no vomiting Genitourinary Female: no dysuria, no flank pain, no hematuria, no urinary frequency, no urinary urgency Exam - Vital Signs Vital signs: Initial Vital Signs Temp Pulse Resp BP Pulse Ox 98.7 F 82 21 131/96 99 01/04/19 18:13 01/04/19 18:13 01/04/19 18:13 01/04/19 18:13 01/04/19 18:13 Vital Signs - Last 8 Hours Temp Pulse Resp BP Pulse Ox 01/05/19 06:51 98.9 F 66 14 127/89 97 01/05/19 05:41 98.3 F 65 12 121/78 96 Intake and Output 01/04/19 01/05/19 01/05/19 23:59 07:59 15:59 Intake Total 1000 / 1000 470 / 470 0 / 470 Output Total 0 / 600 600 / 600 Balance 1000 / 1000 470 / -130 -600 / -130 Intake: IV Fluids 1000 / 1000 0.9 % Sodium Chloride 1,000 ML 1000 / 1000 @ 3750 mls/hr IVC .Q16M ONE Rx# :[id number] Oral 120 / 120 0 / 120 Blood Product 0 / 0 350 / 350 Rbcs Leuko Poor As-1 Unit 0 / 0 350 / 350 [id number] Output: Urine 0 / 600 600 / 600 Other: # Voids 1 Weight 61 kg 61 kg Patient Weight 01/05/19 23:59 Weight 61 kg - General Appearance General appearance: well-developed, well-nourished EENT: ATNC, hearing intact, vision intact Neck: supple Respiratory: clear Cardiology: no edema, normal S1, normal S2 Gastrointestinal: normoactive bowel sounds, no tenderness, no guarding Integumentary: no rash, warm and dry Neurologic: alert and oriented x3 Musculoskeletal: no deformities, no erythema Psychiatric: mood/affect appropriate, cooperative Results - Lab Results 01/05/19 04:30 01/05/19 04:30 Most recent lab results 01/05/19 04:30 Calcium 7.3 L Magnesium 1.7 Consult Discharge Plan - Plan Instructions: Nicotine (Absorbed through the skin), Pantoprazole (By mouth), Linezolid (By mouth), Acute Kidney Injury (DC) Additional Instructions: BMP 7 days after discharge and f/u with Dr. Darling in 4-6 weeks. (This is reccomendations from nephrology). Please make sure you get this drawn, come to nearest [facility] affiliated lab. Take coupon card with you to pharmacy for Zyvox so you can get this at [place]. Referrals: Nicolasa Estes CNP [Advanced Practice Nurse] - 01/14/19 3:40 pm Ysabel Gamez MD [Primary Care Provider] - 01/19/19 10:45 am Fabián Jaimes MD [Partnered Physician] - (Physicians office will call patient to schedule a follow-up appointment. ) Prescriptions: Nicotine Patch [Nicoderm] 21 mg TD DAILY #15 patch.td24 Pantoprazole Sodium 40 mg PO DAILY #30 tablet.dr Marquez [Zyvox] 600 mg PO BID 6 Days #12 tablet <Fabián Jaimes - Last Filed: 01/15/19 23:33> Date of Encounter: 01/05/19 Assessment and Plan (1) Dehydration Status: Acute (2) Anemia Status: Acute Qualifiers: Anemia type: other cause Other causes of anemia: other cause, not classified Qualified Code(s): D64.89 - Other specified anemias (3) ALEJANDRA (acute kidney injury) Status: Acute (4) History of bacteremia Status: Acute (5) History of substance abuse Status: Chronic (6) Hypocalcemia Status: Acute Exam - Vital Signs Vital signs: Initial Vital Signs Temp Pulse Resp BP Pulse Ox 98.7 F 82 21 131/96 99 01/04/19 18:13 01/04/19 18:13 01/04/19 18:13 01/04/19 18:13 01/04/19 18:13 Results - Lab Results 01/11/19 03:45 01/11/19 13:39 - Attending Attestation I examined this patient and my medical decision-making was reviewed with the Resident Physician/CO FOUNDER. I agree with the documented findings, disposition and treatment plan as described except to the extent set forth below. Pt seen and examined and in brief; 33 y o female with PMH of ex-IVDA being treated for MRSA bacteremia with iv vanco sent in for admission with elevated SCr at 3.08, GFR 18. No prior history of renal disease but noted with low hgb down to 6.9 and takes NSAIDs regularly. On exam: Gen: WD/WN NAD, Lungs: clear bilat, Heart: S1S2, Abd: soft NT/ND, Ext: No LE edema bilat, Neuro: no focal deficits. ALEJANDRA in the setting of nephrotoxins: vanco and NSAIDs along with severe anemia. Agree with transfusion 1 units pRBCs per primary team. Agree with holding vanco and trying less nephrotoxic agent if possible. Increase IVF rate. Initiate ALEJANDRA workup. No acute indication for [employer]OR [employer]POR[employer] at this time.
[2019-01-05 13:23] LABS: Uric Acid 4.5 mg/dL (2.3-7.6)
[2019-01-05 14:55] LABS: Hepatitis B Surface Antigen Nonreactive (Nonreactive)
[2019-01-05 15:25] LABS: Hepatitis C Virus Antibody Nonreactive (Nonreactive)
[2019-01-05 15:28] LABS: Hepatitis A Antibody IgM Nonreactive (Nonreactive); Hepatitis B Core IgM Nonreactive (Nonreactive)
--- NOTE | 2019-01-05 18:11 | Internal Med Progress Note ---
Hospitalist Progress Note - Encounter Date of Encounter: 01/05/19 Time of Encounter: 09:00 - Subjective Interval History: No evidence overnight. Patient feels tired this morning. She denied fever, chills or night sweats. She has no shortness of breath or chest pain. She complained about right upper quadrant abdominal pain.. - Exam Vitals: Temp Pulse Resp BP Pulse Ox 98.9 F 66 14 127/89 97 01/05/19 06:51 01/05/19 06:51 01/05/19 06:51 01/05/19 06:51 01/05/19 06:51 Exam: Gen.: Vitals noted. No acute distress. AAOx3, resting comfortably in bed. HEENT: PERRL/EOMI, oropharynx clear, Normocephalic, atraumatic, MMM, poor dentition Cardiac: RRR, no murmur, +S1/S2, No BLE edema Pulmonary: CTA bilaterally, no wheezes, rales or rhonchi, equal chest expansion, unlabored breathing Abdomen: soft, tender to palpation in right upper quadrant, epigastric, left up per quadrant, BS noted, no guarding, no palpable HSM Back: Nontender throughout. Skin: warm and dry, no visible lesions. MSK: ROM intact, no joint swelling noted, gait no assessed while in bed. Non tender calf or clubbing Neuro: A&Ox3, moves all extremities, no focal deficits, sensation intact, Psych: Appropriate mood and behavior, AOx3 - Assessment and Plan (1) Vancomycin poisoning Current Visit: Yes Status: Acute (2) ALEJANDRA (acute kidney injury) Current Visit: Yes Status: Acute (3) Anemia Current Visit: Yes Status: Acute (4) History of bacteremia Current Visit: Yes Status: Acute (5) DVT prophylaxis Current Visit: Yes Status: Acute - Summary of Assessment and Plan Summary of Assessment and Plan: Ms. Frost is a 33-year-old female with a PMH of IV drug use with last use approximately 9 months ago. She is currently being treated for MRSA bacteremia and was on IV vancomycin. Her dose was decreased from twice daily to once daily few days ago however recent blood work revealed fungal mass in toxicity and worsening in her kidney dysfunction. Her symptoms as [place] just following. ALEJANDRA: - from vancomycin poisoning, vancomycin level is 32. - cR bl IS 0.5, today 2.9 from 3.0. - Continue IV fluids, avoid nephrotoxin, monitor input and output. Nephrology was consulted and appreciate recommendation. - Renal diet MRSA bacteremia: - Echo done last visit was negative for infectious endocarditis, most likely source was tooth infection. - Blood cultures ordered and pending. Infectious disease is on board. Trend vancomycin level, once subtherapeutic, IV daptomycin may resume. Abdominal pain: - Right upper quadrant pain with positive Pritchett's sign with physical exam. - Ultrasound of the abdomen revealed diffuse gallbladder wall thickening but finding are not specific for acute cholecystitis. - LFT tomorrow, HIDA scan to rule out cholecystitis. Normocytic anemia: - Likely related to her active infection. - We will check ferritin level tomorrow. Monitor CBC DVT prophylaxis:Subacute heparin CODE STATUS: Code - Time Spent with Patient Total time spent is greater than 50% in coordination of care (as documented) at patient's floor/unit and/or counseling patient: Plan of Care Discussed with: patient Internal Medicine: Result - Labs CBC & Chem 7: 01/05/19 04:30 01/05/19 04:30 Labs: Short CBC 01/04/19 01/05/19 Range/Units 18:29 04:30 WBC 3.2 L 3.4 L (4.3-11.1) K/mcL Hgb 6.9 L 7.7 L (11.5-15.4) g/dL Hct 22.3 L 24.3 L (35.3-44.9) % Plt Count 257 218 (140-400) K/mcL Neutrophils # 1.8 1.9 (1.6-8.9) K/mcL BMP 01/04/19 01/05/19 18:29 04:30 Sodium 140 141 Potassium 3.7 3.8 Chloride 109 H 111 H Carbon Dioxide 25 23 BUN 24 H 23 H Creatinine 3.08 H 2.96 H Glucose 97 84 Calcium 7.7 L 7.3 L Urine 01/04/19 Range/Units 19:00 Urine Color Yellow (Yellow) Urine Clarity Cloudy A (Clear) Urine pH 6.0 (5.0-8.0) pH Units Ur Specific [place] 1.018 (1.010-1.025) Urine Protein 100 H (Neg-Trace) mg/dL Urine Glucose (UA) Normal (Normal) mg/dL - ABG Interpretation ABG results: PT/INR, D-dimer PT 12.7 Seconds (9.4-12.1) H 01/05/19 04:30 - Impressions Impressions Chest X-Ray 01/05/19 09:54 IMPRESSION: Reduction in the airspace disease, pleural effusion and nodular densities from presumed septic emboli. There is residual basilar airspace disease still greater on the right and faint visualization of nodular density greater right parahilar. D/ / Nolan Engel MD / Nolan Engel MD Interpreting Provider: Nolan Engel MD Abdomen Ultrasound 01/05/19 15:00 IMPRESSION: 1. Diffuse gallbladder wall thickening. Findings are nonspecific for acute cholecystitis. 2. Increased echogenicity of the right kidney suggestive of medical renal disease. 3. Trace right upper quadrant ascites. D/ / Bri Mortensen MD / Bri Mortensen MD Interpreting Provider: Bri Mortensen MD Retroperitoneum Ultrasound 01/05/19 15:00 IMPRESSION: Increased renal cortical echogenicity relative to the liver and spleen can be seen with medical renal disease but is nonspecific. Questioned cellular debris layering dependently in the urinary bladder. No acute abnormality. D/ / Nolan Engel MD / Nolan Engel MD Interpreting Provider: Nolan Engel MD Consult Discharge Plan - Plan Referrals: Ysabel Gamez MD [Primary Care Provider] - ___ (3) Anemia Qualifiers: Anemia type: other cause Other causes of anemia: other cause, not classified Qualified Code(s): D64.89 - Other specified anemias
[2019-01-05] MEDS: 0.9 % Sodium Chloride 1,000 ML IVC SCH ×2 (20:51→21:21)
[2019-01-05] MEDS: hydrOXYzine pamoate 25 MG CAPSULE PO SCH (21:24)
[2019-01-06] MEDS: *HR* HYDROcodone/Acet 5/325 mg TABLET PO PRN ×4 (00:29→21:16)
[2019-01-06 00:40] LABS: Protein/Creatinine Ratio,Urine 0.86 mg/mg (0.00-0.20); Sodium, Urine 127.3 mEq/L
[2019-01-06 00:47] LABS: Bilirubin,Urine Negative (Negative); Blood,Urine Large (Negative); Clarity,Urine Cloudy (Clear); Color,Urine Yellow (Yellow); Glucose,Urine (UA) Normal (Normal); Ketones,Urine Negative (Negative); Leukocyte Esterase,Urine Negative (Negative); Nitrite,Urine Negative (Negative); Protein,Urine 30 mg/dL (Neg-Trace); Specific Gravity,Urine 1.014 (1.010-1.025); Urobilinogen,Urine Normal (Normal)
[2019-01-06 00:50] LABS: Bacteria,Urine None Seen per hpf (None-Few); Hyaline Casts,Urine None Seen per lpf (None-Few); RBC,Urine 15-30 per hpf (0-3); Squamous Epithelial Cell,Urine Many per lpf (None-Few)
[2019-01-06] MEDS: 0.9 % Sodium Chloride 1,000 ML IVC SCH (06:37)
[2019-01-06] MEDS: *HR* Heparin 5,000 UNIT/ML VIAL SQ SCH ×2 (06:52→18:19)
[2019-01-06 07:17] LABS: Basophils % 0.2 %; Eosinophils # 0.4 K/mcL (0.0-0.6); Eosinophils % 9.4 %; Hematocrit 26.4 % (35.3-44.9); Hemoglobin 8.3 g/dL (11.5-15.4); Immature Granulocytes % 0.5 % (0-4); Lymphocytes # 1.4 K/mcL (0.6-4.6); Lymphocytes % 32.9 %; Mean Corpuscular HGB Conc 31.4 g/dL (31.6-35.5); Mean Corpuscular Hemoglobin 28.6 pg (28.0-33.3); Mean Platelet Volume 9.1 fL (9.4-12.4); Monocytes # 0.3 K/mcL (0.0-1.3); Monocytes % 7.7 %; Neutrophils # 2.1 K/mcL (1.6-8.9); Platelet Count 226 K/mcL (140-400); Red Cell Distribution Width 12.5 % (11.5-14.5); Segmented Neutrophils % 49.3 %; White Blood Count 4.2 K/mcL (4.3-11.1)
[2019-01-06 07:18] LABS: VBG Ionized Calcium 1.11 mmol/L (1.15-1.35)
[2019-01-06 07:35] LABS: Albumin 2.5 g/dL (3.5-5.7); Albumin/Globulin Ratio 0.7 (1.1-2.2); Bilirubin,Indirect 0.3 mg/dL (0.0-1.2); Bilirubin,Total 0.3 mg/dL (0.3-1.0); Calcium 7.7 mg/dL (8.6-10.3); Globulin 3.4 g/dL (2.4-3.5); Potassium 4.1 mEq/L (3.5-5.1); Total Protein 5.9 g/dL (6.4-8.9)
[2019-01-06] MEDS: Pantoprazole 40 MG VIAL IVP SCH (08:55)
[2019-01-06] MEDS: Nicotine 21 MG PATCH.TD24 TD SCH (08:55)
--- NOTE | 2019-01-06 09:59 | Nephrology Progress Note ---
Date of Encounter: 01/06/19 Time of Encounter: 09:57 - Assessment and Plan (1) ALEJANDRA (acute kidney injury) Current Visit: Yes Status: Acute Normal kidney function in the past. Continue IVF. ALEJANDRA most likely related to IV vancomycin. NSAID use at home could be a contributing factor as well. Serum and urine studies completed. Retroperitoneal ultrasound completed. Strict I&O. Force fluids. Avoid nephrotoxins and renal dose all medications. (2) Anemia Current Visit: Yes Status: Acute Hemoglobin is 8.3. S/P 1 unit PRBC. We will defer transfusions to primary team. Qualifiers: Anemia type: other cause Other causes of anemia: other cause, not classified Qualified Code(s): D64.89 - Other specified anemias (3) History of bacteremia Current Visit: Yes Status: Acute Per infectious disease. (4) History of substance abuse Current Visit: Yes Status: Chronic Per primary. (5) Dehydration Current Visit: No Status: Acute Continue IV fluid, rate increased to 150 an hour. (6) Hypocalcemia Current Visit: Yes Status: Acute Ionized Ca is 1.11. Subjective Principal diagnosis: acute kidney injury Interval history: Patient seen and examined, no complaints. Denies nausea vomiting or diarrhea. Denies chest pain or shortness of breath. Denies any urinary symptoms. Objective - Vital Signs Vital signs: Vital Signs Temp Pulse Resp BP Pulse Ox 01/06/19 08:09 98.7 F 85 17 137/90 98 01/06/19 04:03 97.7 F 64 16 127/83 99 01/05/19 20:00 98.5 F 64 16 124/80 97 Intake and Output 01/05/19 01/06/19 01/06/19 23:59 07:59 15:59 Intake Total 1000 / 1000 Balance 1000 / 1000 Intake: IV Fluids 1000 / 1000 0.9 % Sodium Chloride 1,000 ML 1000 / 1000 @ 150 mls/hr IVC .Q6H40M DIANNE Rx #:[id number] Other: Weight 62.2 kg Patient Weight 01/06/19 23:59 Weight 62.2 kg - General Appearance General appearance: Present: well-developed, well-nourished EENT: Present: ATNC, hearing intact, vision intact Neck: Present: supple Respiratory: Present: clear Cardiology: Present: no edema, normal S1, normal S2 Gastrointestinal: Present: normoactive bowel sounds, no tenderness, no guarding Integumentary: Present: no rash, warm and dry Neurologic: Present: alert and oriented x3 Musculoskeletal: Present: no deformities, no erythema Psychiatric: Present: mood/affect appropriate, cooperative - Lab 01/06/19 04:00 01/06/19 04:00 Most recent lab results 01/06/19 01/06/19 00:23 04:00 Calcium 7.7 L Urine Creatinine 69 Urine Sodium 127.3 Urine Total Protein 59 H Consult Discharge Plan - Plan Referrals: Ysabel Gamez MD [Primary Care Provider] -
--- NOTE | 2019-01-06 10:08 | Infectious Disease Progress No ---
ID Progress Note Date of Encounter: 01/06/19 Time of Encounter: 10:05 - Subjective Subjective: Patient seen and examined. No acute events noted overnight. Patient states overall she feels well. Denies fevers, chills, rigors. Denies chest pain, shortness of breath, or cough. Continues to complain of reproducible bilateral anterior posterior rib pain that is worse with cough or deep inspiration. Complaints of right upper quadrant epigastric abdominal pain. Denies nausea, vomiting, diarrhea, or constipation. Denies lower abdominal pain or urinary complaints. Denies back or flank pain. Denies joint or extremity pain. Denies oral thrush or skin rashes. She states her appetite is good. - Objective CBC & Chem 7: 01/07/19 05:30 01/07/19 05:30 - Exam Vitals: Temp Pulse Resp BP Pulse Ox 98.7 F 85 17 137/90 98 01/06/19 08:09 01/06/19 08:09 01/06/19 08:09 01/06/19 08:09 01/06/19 08:09 Exam: Head: Atraumatic, normal inspection, normocephalic. Eye: EOMI, PERRLA, no scleral icterus noted. No subcutaneous conjunctival hemorrhage noted. ENT: Mucous membranes moist. No odontogenic infection noted. Neck: Normal inspection, no meningismus. Respiratory: Clear to auscultation. No rales, respiratory distress, rhonchi, or wheezes noted. Tenderness noted with palpation of the anterior posterior bilateral ribs. Cardiovascular: Regular rate and rhythm, S1 and S2 audible. No murmurs, rubs, or gallops. GI: Soft, nondistended, normal bowel sounds. Tenderness noted with palpation of the epigastric, right upper quadrant, and left upper quadrants. Extremities: No joint swelling, pedal edema, or tenderness noted. PICC line noted to the left upper extremity is transparent dressing clean, dry, and intact. Back: Normal inspection. No vertebral tenderness noted. Neurological: Alert, oriented 3, no focal deficits. Psychiatric: normal affect, normal mood. Skin: Dry, intact, warm. Normal color. No rashes. No endocarditis stigmata noted. - Assessment and Plan (1) ALEJANDRA (acute kidney injury) Current Visit: Yes Status: Acute Likely secondary to vancomycin toxicity. Vancomycin trough last week was greater than 50. Random vancomycin level on admission was 32. Creatinine 3.08 on admission. Improved to 2.45 today. Repeat random vancomycin level was 12 this morning. Nephrology consulted. Appreciate recommendations. Antibiotics currently on hold. SNOMED Code(s): 32051861, 03682538 (2) Abdominal pain Current Visit: Yes Status: Acute Location: Epigastric, right upper quadrant, left upper quadrant. LFTs normal. Right upper quadrant ultrasound showed diffuse colon wall thickening. Findings are nonspecific for acute cholecystitis. HIDA scan showed no scintigraphic graphic findings of acute cholecystitis and evaluation for chronic cholecystitis limited by lack of evaluation of ejection fraction. There was delayed clearance of activity from the liver suggestive of underlying hepatocellular dysfunction. There was also delayed small bowel vi sualization which is nonspecific and may be a normal variant but also may be seen in biliary dyskinesia and partial common duct obstruction. Consider GI to evaluate. Qualifiers: Abdominal location: epigastric Qualified Code(s): R10.13 - Epigastric pain SNOMED Code(s): 89105031 (3) Rib pain Current Visit: Yes Status: Acute Location: Bilateral, anterior and posterior. Etiology: Unclear. Chest x-ray showed reduction in the airspace disease, pleural effusion, nodular densities presumed septic emboli. There is residual basilar airspace disease greater on the right and faint visualization of nodular density greater in the right perihilar region. Pain management per the primary team. SNOMED Code(s): 441459528 (4) History of bacteremia Current Visit: Yes Status: Acute Causative organism: MRSA. Source: Unclear. The patient does have a history of IV drug use, but states she has been clean for about 7 months. Blood cultures drawn 12/18/18 are +2 out of 2 sets for MRSA. Repeat blood cultures on 12/19/18 are +2 out of 2 sets. Repeat blood cultures drawn 12/21/18 are negative x 2 sets. Complicated due to septic emboli in the lungs. Rheumatoid factor elevated. TTE negative for vegetations. CHRISTY negative. The patient had 1 major and 3 minor modified [place] criteria. Plan to treat through 01/18/19. Repeat blood cultures on 01/04/19 are no growth to date 2 sets. Additional blood culture drawn 01/05/19 from the patient's PICC line is also pending. No evidence of recurrence of infection as the patient is without sepsis criteria. 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 HIV nonreactive. Hep C negative. Hep B immune. The patient states she thinks she got the Hep B vaccinations. SNOMED Code(s): 414879650 (6) Anemia Current Visit: Yes Status: Acute Hemoglobin 6.9 on admission. Possibly secondary to acute kidney injury vs other. Fecal occult blood test was negative. Improved after 1 unit of packed red cells. Further workup and management per the primary and nephrology teams. Qualifiers: Anemia type: other cause Other causes of anemia: other cause, not classified Qualified Code(s): D64.89 - Other specified anemias SNOMED Code(s): 526977483 - Recommendations Recommendations: Check LDH. Await repeat blood cultures. ALEJANDRA management and workup per the nephrology team. Consider GI to evaluate for epigastric pain. Consider hematology/oncology to evaluate for leukopenia and anemia. Random vancomycin level 12. We will start linezolid 600mg PO BID. Duration of treatment depends on the clinical picture, likely through 01/18/19. Monitor renal function and dose adjust antibiotics. Contact precautions per hospital policy. Consult Discharge Plan - Plan Referrals: Nicolasa Estes CNP [Advanced Practice Nurse] - 01/14/19 3:40 pm Ysabel Gamez MD [Primary Care Provider] - - Attending Attestation I have personally performed a face to face evaluation on this patient. I have reviewed and agree with the care plan. History and Exam by me shows: Assessment and plan: 1.MRSA bacteremia secondary to IV drug use with septic emboli to the lungs 2.IV drug user 3.Acute kidney injury secondary to vancomycin toxicity 4.Anemia Recommendations Get Chest x-ray. Await repeat blood cultures. Continue to trend vancomycin levels. Continue to monitor renal function closely. Await further recommendations from the nephrology team. Hold antibiotics until vancomycin level therapeutic/subtherapeutic. We will likely restart treatment with IV daptomycin once the patient becomes subtherapeutic on her Vanco level. Duration of treatment depends on the clinical picture, likely through 01/18/19. Monitor renal function and dose adjust antibiotics. Contact precautions per hospital policy.
[2019-01-06] MEDS ORDERED: DAPTOMYCIN IVPB SCH (11:00)
[2019-01-06] MEDS ORDERED: SODIUM CHLORIDE 0.9% IVPB SCH (11:00)
[2019-01-06] MEDS ORDERED: DAPTOmycin 375 MG in 0.9 % Sodium Chloride 100 ML IVPB SCH (11:00)
--- NOTE | 2019-01-06 12:12 | Internal Med Progress Note ---
Hospitalist Progress Note - Encounter Date of Encounter: 01/06/19 Time of Encounter: 12:10 - Subjective Interval History: The patient was seen and examined at the bedside. Patient denies nausea vomiting however she is still complaining of abdominal pain HIDA scan show no evidence of acute cholecystitis No fever last 24-hour Blood culture from the port on January 05 still pending - Exam Vitals: Temp Pulse Resp BP Pulse Ox 98.7 F 85 17 137/90 98 01/06/19 08:09 01/06/19 08:09 01/06/19 08:09 01/06/19 08:09 01/06/19 08:09 Exam: Physical examination: Gen.: Patient is alert and oriented, not in respiratory distress of pain HEENT: perrla , EOMI, no thyroid gland enlargement, no neck mass, supple neck Heart: S1 and S2 [place], normal sinus rhythm, no cardiac murmur no gallop rhythm Chest: Air entry equal bilaterally, clear chest, no wheezing, crackles or crepi tation Abdomen: Soft, tender without rigidity, nondistended positive bowel sounds, no organomegaly Extremities: No pitting edema, peripheral pulses palpable, no cyanosis tenderness Neuro: Able to move all 4 limbs, DVT Prophylaxis: Heparin - Summary of Assessment and Plan Summary of Assessment and Plan: Ms. Frost is a 33-year-old female with a PMH of IV drug use with last use approximately 9 months ago. She is currently being treated for MRSA bacteremia and was on IV vancomycin. Her dose was decreased from twice daily to once daily few days ago however recent blood work revealed fungal mass in toxicity and worsening in her kidney dysfunction. Her symptoms as [place] just following. ALEJANDRA: - Most likely related to IV vancomycin, NSAID use at home could be contributing factor Plastics Engineering Teacher consulted Continue on IV fluid Serum creatinine trending down to 2.4 from 2.9 Avoid nephrotoxic medication - Renal diet MRSA bacteremia: - Echo done last visit was negative for infectious endocarditis, source unclear, patient does have history of IV drug use - Infectious disease is on board. Trend vancomycin level, once subtherapeutic, IV daptomycin may resume. Blood cultures drawn 12/18/18 are +2 out of 2 sets for MRSA. Repeat blood cultures on 12/19/18 are +2 out of 2 sets. Repeat blood cultures drawn 12/21/18 are negative x 2 sets. Complicated due to septic emboli in the lungs. Rheumatoid factor elevated. TTE negative for vegetations. CHRISTY negative. The patient had 1 major and 3 minor modified [place] criteria. Plan to treat through 01/18/19. Repeat blood cultures on 01/04/19 are no growth to date 2 sets. Additional blood culture drawn 01/05/19 from the patient's PICC line is also pending. No evidence of recurrence of infection as the patient is without sepsis criteria. Abdominal pain: - Right upper quadrant pain - HIDA scan showed no scintigraphic graphic findings of acute cholecystitis and evaluation for chronic cholecystitis limited by lack of evaluation of ejection fraction. There was delayed clearance of activity from the liver suggestive of underlying hepatocellular dysfunction. - LFT normal Normocytic anemia: - Likely related to her active infection. - Monitor CBC - hb today 8.3 DVT prophylaxis:Subacute heparin CODE STATUS: Code - Time Spent with Patient Total time spent is greater than 50% in coordination of care (as documented) at patient's floor/unit and/or counseling patient: Internal Medicine: Result - Labs CBC & Chem 7: 01/06/19 04:00 01/06/19 04:00 Labs: Short CBC 01/06/19 Range/Units 04:00 WBC 4.2 L (4.3-11.1) K/mcL Hgb 8.3 L (11.5-15.4) g/dL Hct 26.4 L (35.3-44.9) % Plt Count 226 (140-400) K/mcL Neutrophils # 2.1 (1.6-8.9) K/mcL BMP 01/05/19 01/06/19 04:30 04:00 Sodium 141 140 Potassium 3.8 4.1 Chloride 111 H 107 Carbon Dioxide 23 22 L BUN 23 H 21 H Creatinine 2.96 H 2.45 H Glucose 84 77 Calcium 7.3 L 7.7 L Liver Function 01/06/19 Range/Units 04:00 Total Bilirubin 0.3 (0.3-1.0) mg/dL Direct Bilirubin 0.0 (0.0-0.2) mg/dL AST 22 (13-39) Units/L ALT 15 (7-52) Units/L Alkaline Phosphatase 51 (34-104) Units/L Albumin 2.5 L (3.5-5.7) g/dL Urine 01/06/19 Range/Units 00:23 Urine Color Yellow (Yellow) Urine Clarity Cloudy A (Clear) Urine pH 6.0 (5.0-8.0) pH Units Ur Specific [place] 1.014 (1.010-1.025) Urine Protein 30 H (Neg-Trace) mg/dL Urine Glucose (UA) Normal (Normal) mg/dL - ABG Interpretation ABG results: PT/INR, D-dimer PT 12.7 Seconds (9.4-12.1) H 01/05/19 04:30 - Impressions Impressions Chest X-Ray 01/05/19 09:54 IMPRESSION: Reduction in the airspace disease, pleural effusion and nodular densities from presumed septic emboli. There is residual basilar airspace disease still greater on the right and faint visualization of nodular density greater right parahilar. D/ / Nolan Engel MD / Nolan Engel MD Interpreting Provider: Nolan Engel MD Abdomen Ultrasound 01/05/19 15:00 IMPRESSION: 1. Diffuse gallbladder wall thickening. Findings are nonspecific for acute cholecystitis. 2. Increased echogenicity of the right kidney suggestive of medical renal disease. 3. Trace right upper quadrant ascites. D/ / Bri Mortensen MD / Bri Mortensen MD Interpreting Provider: Bri Mortensen MD Retroperitoneum Ultrasound 01/05/19 15:00 IMPRESSION: Increased renal cortical echogenicity relative to the liver and spleen can be seen with medical renal disease but is nonspecific. Questioned cellular debris layering dependently in the urinary bladder. No acute abnormality. D/ / Nolan Engel MD / Nolan Engel MD Interpreting Provider: Nolan Engel MD Bile Acid Absorption NM 01/05/19 18:20 IMPRESSION: 1. No scintigraphic findings of acute cholecystitis. Evaluation for chronic cholecystitis is limited by lack of evaluation of ejection fraction. 2. Delayed clearance of activity from the liver suggestive of underlying hepatocellular dysfunction. 3. Delayed small bowel visualization is nonspecific and may be a normal variant but may also be seen in biliary dyskinesia and partial common duct obstruction. D/ / Jorge Negrete MD / Jorge Negrete MD Interpreting Provider: Jorge Negrete MD Consult Discharge Plan - Plan Referrals: Ysabel Gamez MD [Primary Care Provider] -
[2019-01-06] MEDS: Linezolid 600 MG TABLET PO SCH (21:16)
[2019-01-06] MEDS: hydrOXYzine pamoate 25 MG CAPSULE PO SCH (21:16)
[2019-01-07] MEDS: *HR* Heparin 5,000 UNIT/ML VIAL SQ SCH ×2 (05:42→17:33)
[2019-01-07 05:55] LABS: Hemoglobin 8.5 g/dL (11.5-15.4); Mean Corpuscular HGB Conc 32.7 g/dL (31.6-35.5); Mean Corpuscular Hemoglobin 29.3 pg (28.0-33.3); Mean Corpuscular Volume 89.7 fL (83.0-100.0); Mean Platelet Volume 8.9 fL (9.4-12.4); Platelet Count 201 K/mcL (140-400); White Blood Count 4.4 K/mcL (4.3-11.1)
[2019-01-07 06:19] LABS: Albumin 2.5 g/dL (3.5-5.7); Albumin/Globulin Ratio 0.8 (1.1-2.2); Bilirubin,Total 0.3 mg/dL (0.3-1.0); Calcium 7.5 mg/dL (8.6-10.3); Globulin 3.2 g/dL (2.4-3.5); Magnesium 1.3 mg/dL (1.6-2.6); Phosphorous 3.6 mg/dL (2.7-4.5); Potassium 3.8 mEq/L (3.5-5.1); Total Protein 5.7 g/dL (6.4-8.9)
--- NOTE | 2019-01-07 09:55 | Internal Med Progress Note ---
Hospitalist Progress Note - Encounter Date of Encounter: 01/07/19 Time of Encounter: 09:49 - Subjective Interval History: Patient was seen and examined at the bedside Patient denies chest pain or shortness of breath she still complained of abdominal pain but resting comfortably in bed No fever - Exam Vitals: Temp Pulse Resp BP Pulse Ox 98.7 F 72 14 145/94 97 01/07/19 07:49 01/07/19 07:49 01/07/19 07:49 01/07/19 07:49 01/07/19 07:49 Exam: Physical examination: Gen.: Patient is alert and oriented, not in respiratory distress of pain HEENT: perrla , EOMI, no thyroid gland enlargement, no neck mass, supple neck Heart: S1 and S2 [place], normal sinus rhythm, no cardiac murmur no gallop rhythm Chest: Air entry equal bilaterally, clear chest, no wheezing, crackles or crepitation Abdomen: Soft, tender without rigidity, nondistended positive bowel sounds, no organomegaly Extremities: No pitting edema, peripheral pulses palpable, no cyanosis tenderness Neuro: Able to move all 4 limbs, DVT Prophylaxis: Heparin - Summary of Assessment and Plan Summary of Assessment and Plan: Ms. Frost is a 33-year-old female with a PMH of IV drug use with last use approximately 9 months ago. She is currently being treated for MRSA bacteremia and was on IV vancomycin. Her dose was decreased from twice daily to once daily few days ago however recent blood work revealed fungal mass in toxicity and worsening in her kidney dysfunction. Her symptoms as [place] just following. ALEJANDRA: - Most likely related to IV vancomycin, NSAID use at home could be contributing factor Assisted Sales Representative consulted Continue on IV fluid Serum creatinine trending down to 2.27 from 2.9 Avoid nephrotoxic medication - Renal diet MRSA bacteremia: - Echo done last visit was negative for infectious endocarditis, source unclear, patient does have history of IV drug use - Infectious disease is on board. Started on linezolid 600 mg twice a day by DMITRY Tang Blood cultures drawn 12/18/18 are +2 out of 2 sets for MRSA. Repeat blood cultures on 12/19/18 are +2 out of 2 sets. Repeat blood cultures drawn 12/21/18 are negative x 2 sets. Complicated due to septic emboli in the lungs. Rheumatoid factor elevated. TTE negative for vegetations. CHRISTY negative. The patient had 1 major and 3 minor modified [place] criteria. Plan to treat through 01/18/19. Repeat blood cultures on 01/04/19 are no growth to date 2 sets. Additional blood culture drawn 01/05/19 from the patient's PICC line is also pending. No evidence of recurrence of infection as the patient is without sepsis criteria. Abdominal pain: - Right upper quadrant pain - HIDA scan showed no scintigraphic graphic findings of acute cholecystitis and evaluation for chronic cholecystitis limited by lack of evaluation of ejection fraction. There was delayed clearance of activity from the liver suggestive of underlying hepatocellular dysfunction. - LFT normal - GI consultation to r/o partial common duct obstruction Normocytic anemia: - Likely related to her active infection. - Monitor CBC - hb today 8.5 DVT prophylaxis:Subacute heparin CODE STATUS: Code - Time Spent with Patient Total time spent is greater than 50% in coordination of care (as documented) at patient's floor/unit and/or counseling patient: Internal Medicine: Result - Labs CBC & Chem 7: 01/07/19 05:30 01/07/19 05:30 Labs: Short CBC 01/07/19 Range/Units 05:30 WBC 4.4 (4.3-11.1) K/mcL Hgb 8.5 L (11.5-15.4) g/dL Hct 26.0 L (35.3-44.9) % Plt Count 201 (140-400) K/mcL BMP 01/07/19 05:30 Sodium 140 Potassium 3.8 Chloride 111 H Carbon Dioxide 21 L BUN 17 Creatinine 2.27 H Glucose 84 Calcium 7.5 L Liver Function 01/07/19 Range/Units 05:30 Total Bilirubin 0.3 (0.3-1.0) mg/dL AST 48 H (13-39) Units/L ALT 35 (7-52) Units/L Alkaline Phosphatase 51 (34-104) Units/L Albumin 2.5 L (3.5-5.7) g/dL - ABG Interpretation ABG results: PT/INR, D-dimer PT 12.7 Seconds (9.4-12.1) H 01/05/19 04:30 Consult Discharge Plan - Plan Referrals: Ysabel Gamez MD [Primary Care Provider] -
[2019-01-07] MEDS: Nicotine 21 MG PATCH.TD24 TD SCH (09:57)
[2019-01-07] MEDS: Pantoprazole 40 MG VIAL IVP SCH (09:58)
[2019-01-07] MEDS: Linezolid 600 MG TABLET PO SCH ×2 (09:58→19:45)
--- NOTE | 2019-01-07 10:27 | Infectious Disease Progress No ---
ID Progress Note Date of Encounter: 01/07/19 Time of Encounter: 10:25 - Subjective Subjective: Patient seen and examined. No acute events noted overnight. Patient states overall she feels well. Denies fevers, chills, rigors. Denies chest pain, shortness of breath, or cough. Continues to complain of reproducible bilateral anterior and posterior rib pain that is worse with cough or deep inspiration. Complaints of right upper quadrant and epigastric abdominal pain. Denies nausea, vomiting, diarrhea, or constipation. Denies lower abdominal pain or urinary complaints. Denies back or flank pain. Denies joint or extremity pain. Denies oral thrush or skin rashes. She states her appetite is good. - Objective CBC & Chem 7: 01/08/19 05:25 01/08/19 05:25 - Line Documentation Line Documentation: PICC Line - Exam Vitals: Temp Pulse Resp BP Pulse Ox 98.7 F 72 14 145/94 97 01/07/19 07:49 01/07/19 07:49 01/07/19 07:49 01/07/19 07:49 01/07/19 07:49 Exam: Head: Atraumatic, normal inspection, normocephalic. Eye: EOMI, PERRLA, no scleral icterus noted. No subcutaneous conjunctival hemorrhage noted. ENT: Mucous membranes moist. No odontogenic infection noted. Neck: Normal inspection, no meningismus. Respiratory: Clear to auscultation. No rales, respiratory distress, rhonchi, or wheezes noted. Tenderness noted with palpation of the anterior posterior bilateral ribs. Cardiovascular: Regular rate and rhythm, S1 and S2 audible. No murmurs, rubs, or gallops. GI: Soft, nondistended, normal bowel sounds. Tenderness noted with palpation of the epigastric, right upper quadrant, and left upper quadrants. Extremities: No joint swelling, pedal edema, or tenderness noted. PICC line noted to the left upper extremity is transparent dressing clean, dry, and intact. Back: Normal inspection. No vertebral tenderness noted. Neurological: Alert, oriented 3, no focal deficits. Psychiatric: normal affect, normal mood. Skin: Dry, intact, warm. Normal color. No rashes. No endocarditis stigmata noted. - Assessment and Plan (1) ALEJANDRA (acute kidney injury) Current Visit: Yes Status: Acute Likely secondary to vancomycin toxicity. Vancomycin trough last week was greater than 50. Random vancomycin level on admission was 32. Creatinine 3.08 on admission. Improved to 2.27 today. Nephrology consulted. Appreciate recommendations. SNOMED Code(s): 01439675, 78143316 (2) Abdominal pain Current Visit: Yes Status: Acute Location: Epigastric, right upper quadrant, left upper quadrant. LFTs normal. Right upper quadrant ultrasound showed diffuse colon wall thickening. Findings are nonspecific for acute cholecystitis. HIDA scan showed no scintigraphic graphic findings of acute cholecystitis and evaluation for chronic cholecystitis limited by lack of evaluation of ejection fraction. There was delayed clearance of activity from the liver suggestive of underlying hepatocellular dysfunction. There was also delayed small bowel visualization which is nonspecific and may be a normal variant but also may be seen in biliary dyskinesia and partial common duct obstruction. Consider GI to evaluate. Qualifiers: Abdominal location: epigastric Qualified Code(s): R10.13 - Epigastric pain SNOMED Code(s): 46923538 (3) Rib pain Current Visit: Yes Status: Acute Location: Bilateral, anterior and posterior. Etiology: Unclear. Chest x-ray showed reduction in the airspace disease, pleural effusion, nodular densities presumed septic emboli. There is residual basilar airspace disease greater on the right and faint visualization of nodular density greater in the right perihilar region. Pain management per the primary team. SNOMED Code(s): 498877195 (4) History of bacteremia Current Visit: Yes Status: Acute Causative organism: MRSA. Source: Unclear. The patient does have a history of IV drug use, but states she has been clean for about 7 months. Blood cultures drawn 12/18/18 are +2 out of 2 sets for MRSA. Repeat blood cultures on 12/19/18 are +2 out of 2 sets. Repeat blood cultures drawn 12/21/18 are negative x 2 sets. Complicated due to septic emboli in the lungs. Rheumatoid factor elevated. TTE negative for vegetations. CHRISTY negative. The patient had 1 major and 3 minor modified [place] criteria. Plan to treat through 01/18/19. Repeat blood cultures on 01/04/19 are no growth to date 2 sets. Additional blood culture drawn 01/05/19 from the patient's PICC line is NGTD. No evidence of recurrence of infection as the patient is without sepsis criteria. Re-started antibiotics 01/06/19. Will plan to complete course of treatment with PO Zyvox since the patient completed more than two weeks of IV antibiotics and it appears her bacteremia has resolved. 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 HIV nonreactive. Hep C negative. Hep B immune. The patient states she thinks she got the Hep B vaccinations. SNOMED Code(s): 328848354 (6) Anemia Current Visit: Yes Status: Acute Hemoglobin 6.9 on admission. Possibly secondary to acute kidney injury vs other. Fecal occult blood test was negative. Improved after 1 unit of packed red cells. Further workup and management per the primary and nephrology teams. Qualifiers: Anemia type: other cause Other causes of anemia: other cause, not classified Qualified Code(s): D64.89 - Other specified anemias SNOMED Code(s): 781536525 - Recommendations Recommendations: Await repeat blood cultures. ALEJANDRA management and workup per the nephrology team. Consider GI to evaluate for epigastric pain. Consider hematology/oncology to evaluate for leukopenia and anemia. Continue linezolid 600mg PO BID. Duration of treatment depends on the clinical picture, likely through 01/18/19. Monitor renal function and dose adjust antibiotics. Contact precautions per hospital policy. Continue to monitor renal function closely. Can discontinue PICC Line at discharge since the patient can complete course of treatment with PO antibiotics. Follow up with ID 01/14/19 at 1540. Consult Discharge Plan - Plan Referrals: Ysabel Gamez MD [Primary Care Provider] - Nicolasa Estes CNP [Advanced Practice Nurse] - 01/14/19 3:40 pm - Attending Attestation I have personally performed a face to face evaluation on this patient. I have reviewed and agree with the care plan. History and Exam by me shows: Assessment and plan: 1.MRSA bacteremia secondary to IV drug use with septic emboli to the lungs 2.IV drug user 3.Acute kidney injury secondary to vancomycin toxicity 4.Anemia Recommendations I had a long discussion with the hospitalist team regarding this patient. Patient did have MRSA bacteremia that was complicated with septic emboli to the chest. She had an acute kidney injury with brain toxicity. Patient did receive 16 days worth of IV antibiotics and to no longer bacteremic. I can switch the patient to daptomycin because it has no penetration to the lungs. Decision was to go with Zyvox to finish a 4 week course. I thought it should be okay/with the fact that the patient is no longer bacteremic and she has received 16 days worth of vancomycin. The patient cannot will residential if she has oral antibiotics. If that is the case with his 50s IV vancomycin or IV Ceftaroline
--- NOTE | 2019-01-07 11:12 | Nephrology Progress Note ---
<Saray Hilario - Last Filed: 01/07/19 11:09> Date of Encounter: 01/07/19 Time of Encounter: 11:09 - Assessment and Plan (1) ALEJANDRA (acute kidney injury) Current Visit: Yes Status: Acute Normal kidney function in the past. Scr 2.27 and GFR 25 both improved. Uop not recorded for the past [address] days[address] Informed nurse to place hat in bathroom for accurate I/O's. Order for strict I/O's placed. Patient states she is voiding without difficulty. 1 Liter NS ordered. ALEJANDRA most likely related to IV vancomycin. NSAID use at home could be a contributing factor as well. Serum and urine studies completed. Retroperitoneal ultrasound completed. Strict I&O. Force fluids. Avoid nephrotoxins and renal dose all medications. (2) Anemia Current Visit: Yes Status: Acute Hemoglobin is 8.5. S/P 1 unit PRBC. We will defer transfusions to primary team. Qualifiers: Anemia type: other cause Other causes of anemia: other cause, not classified Qualified Code(s): D64.89 - Other specified anemias (3) History of bacteremia Current Visit: Yes Status: Acute Per infectious disease. (4) History of substance abuse Current Visit: Yes Status: Chronic Per primary. (5) Dehydration Current Visit: No Status: Acute 1 liter NS ordered. (6) Hypocalcemia Current Visit: Yes Status: Acute Ionized Ca is 1.11. Subjective Principal diagnosis: acute kidney injury Interval history: Patient seen and examined, no complaints. Denies nausea vomiting or diarrhea. Denies chest pain or shortness of breath. Denies any urinary symptoms. Objective - Vital Signs Vital signs: Vital Signs Temp Pulse Resp BP Pulse Ox 01/07/19 07:49 98.7 F 72 14 145/94 97 01/07/19 04:44 98.7 F 68 14 148/93 95 01/06/19 20:11 98.4 F 70 14 150/90 98 01/06/19 16:47 98.5 F 69 15 136/90 Intake and Output 01/06/19 01/07/19 01/07/19 23:59 07:59 15:59 Other: Weight 62.4 kg Patient Weight 01/07/19 23:59 Weight 62.4 kg - General Appearance General appearance: Present: well-developed, well-nourished EENT: Present: ATNC, hearing intact, vision intact Neck: Present: supple Respiratory: Present: clear Cardiology: Present: no edema, normal S1, normal S2 Gastrointestinal: Present: normoactive bowel sounds, no tenderness, no guarding Integumentary: Present: no rash, warm and dry Neurologic: Present: alert and oriented x3 Musculoskeletal: Present: no deformities, no erythema Psychiatric: Present: mood/affect appropriate, cooperative - Lab 01/07/19 05:30 01/07/19 05:30 Most recent lab results 01/07/19 05:30 Calcium 7.5 L Phosphorus 3.6 Magnesium 1.3 L Consult Discharge Plan - Plan Referrals: Nicolasa Estes CNP [Advanced Practice Nurse] - 01/14/19 3:40 pm Ysabel Gamez MD [Primary Care Provider] - <Fabián Jaimes - Last Filed: 01/07/19 23:56> Date of Encounter: 01/07/19 - Assessment and Plan (1) Dehydration Current Visit: No Status: Acute (2) Anemia Current Visit: Yes Status: Acute Qualifiers: Anemia type: other cause Other causes of anemia: other cause, not classified Qualified Code(s): D64.89 - Other specified anemias (3) ALEJANDRA (acute kidney injury) Current Visit: Yes Status: Acute (4) History of bacteremia Current Visit: Yes Status: Acute (5) History of substance abuse Current Visit: Yes Status: Chronic (6) Hypocalcemia Current Visit: Yes Status: Acute Objective - Vital Signs Vital signs: Vital Signs Temp Pulse Resp BP Pulse Ox 01/07/19 19:50 156/100 01/07/19 19:45 98.1 F 60 20 165/95 98 01/07/19 15:07 98.7 F 65 14 145/87 95 01/07/19 07:49 98.7 F 72 14 145/94 97 01/07/19 04:44 98.7 F 68 14 148/93 95 Intake and Output 01/07/19 01/07/19 01/07/19 07:59 15:59 23:59 Intake Total 0 / 240 240 / 240 Output Total 500 / 500 Balance -500 / -260 240 / -260 Intake: Oral 0 / 240 240 / 240 Output: Urine 500 / 500 Other: Meal Dinner Percent of Meal Consumed 100% Weight 62.4 kg Patient Weight 01/07/19 23:59 Weight 62.4 kg - Lab 01/07/19 05:30 01/07/19 05:30 - Attending Attestation I examined this patient and my medical decision-making was reviewed with the Resident Physician/FLORICULTURE PROFESSOR. I agree with the documented findings, disposition and treatment plan as described except to the extent set forth below. Pt seen and examined improving slowly with SCr now at 2.27, GFR 22 with vanco level now at 8. On exam: NAD, lungs clear, Heart S1S2, no LE edema. Etiology of ALEJANDRA likely vanco toxicity/pre-renal. Continue supportive care with IVF. Avoid nephrotoxins if possible. UOP not documented but pt reports good UOP. Hgb stable at 8.5, transfusion parameter per primary team. Lytes reviewed, can replete calcium and magnesium as needed
[2019-01-07] MEDS: 0.9 % Sodium Chloride 1,000 ML IVC SCH (14:56)
--- NOTE | 2019-01-07 17:21 | Gastroenterology Consult Note ---
<Jorge Frost - Last Filed: 01/07/19 17:17> Date of Encounter: 01/07/19 Time of Encounter: 13:00 - Assessment and plan (1) Abdominal pain Current Visit: Yes Status: Acute Assessment and plan: RUQ US showed diffuse gallbladder wall thickening, findings are nonspecific for acute cholecystitis, CBD measures 2 mm. HIDA scan with no scintigraphic findings of acute cholecystitis, delayed clearance of activity from the liver suggestive of underlying hepatocellular dysfunction, delayed small bowel visualization is nonspecific and may be a normal variant but may also be seen in biliary dyskinesia and partial common duct obstruction. Today TB 0.3, AST 48, ALT 35, alk phos 199. AST slightly elevated but nonspecific, otherwise LFTs normal. No CBD obstruction. No indication for ERCP at this time. Qualifiers: Abdominal location: epigastric Qualified Code(s): R10.13 - Epigastric pain - Time Spent With Patient Total time spent is greater than 50% in coordination of care (as documented) at patient's floor/unit and/or counseling patient: GI History of Present Illness - Data of Consult Patient: new to practice Consult date: 01/07/19 Requesting Physician: Candie Singh - Consult Narrative Reason for consult: CBD obstruction History of present illness: Ms. Frost is a 33 year old female with PMHx of IV drug use (last use 9 months ago) who presented to the ED from her rehabilitation facility after routine blood works on elevated creatinine level and decreased hemoglobin. Patient was recently admitted from 12/19/18-12/24/18 for MRSA bacteremia secondary to unclear source, possibly dental abscess. She denies fever, chills, shortness of breath, chest pain, nausea, vomiting, melena, or hematochezia. She began complaining of RUQ abdominal pain. RUQ US showed diffuse gallbladder wall thickening, findings are nonspecific for acute cholecystitis, CBD measures 2 mm. HIDA scan with no scintigraphic findings of acute cholecystitis, delayed clearance of activity from the liver suggestive of underlying hepatocellular dysfunction, delayed small bowel visualization is nonspecific and may be a normal variant but may also be seen in biliary dyskinesia and partial common duct obstruction. Today TB 0.3, AST 48, ALT 35, alk phos 199. Procedures: None NSAIDs: Diclofenac, ibuprofen Anticoagulation: None Past Med Surg Social Fam HX - Past Medical History Medical history: no medical history Additional medical history: PE, Substance abuse Psychiatric history: no psych history - Past Surgical History Additional surgical history: Ear Tubes, Tubal ligation,Tonsillectomy - Social History Smoking Status: Current every day smoker Smokeless Tobacco Status: No Alcohol use: none Drug use: none - Gastrointestinal Gastrointestinal: Present: as per HPI - Constitutional Constitutional: as per HPI - EENT Eyes: as per HPI Ears: Present: as per HPI Nose, mouth and throat: Present: as per HPI - Cardiovascular Cardiovascular ROS: Present: as per HPI - Respiratory Respiratory IM: Present: as per HPI - Genitourinary Genitourinary: Absent: change in color, Urinary frequency - Neurological ROS Neurological GI: Present: as per HPI - Hematologic/Lymphatic Hematologic/Lymphatic pediatric: Present: as per HPI - Musculoskeletal Musculoskeletal ROS GI: Present: as per HPI - Integumentary Integumentary GI: Present: as per HPI - Psychiatric ROS Psychiatric GI: Present: as per HPI - Endocrine Endocrine IM: Present: as per HPI - Constitutional Vitals: Temp Pulse Resp BP Pulse Ox 98.7 F 65 14 145/87 95 01/07/19 15:07 01/07/19 15:07 01/07/19 15:07 01/07/19 15:07 01/07/19 15:07 General appearance: Present: cooperative, A&O X 3, no acute distress, answers questions appropriately - Head Head exam: Present: atraumatic, normocephalic - Eye Eye exam: Present: normal appearance, sclera anicteric - ENT ENT exam: Present: mucous membranes dry - Neck Neck exam general surgery: Present: normal inspection, trachea midline - Respiratory Respiratory exam: Present: CTAB. Absent: rales, rhonchi - Cardiovascular Cardiovascular exam: Present: RRR, +S1, +S2 - GI/Abdominal GI/Abdominal exam: Present: soft, no peritoneal signs. Absent: distended, firm, guarding, tenderness - Rectal Rectal exam: Present: deferred - Extremities Exam Extremities exam: Present: warm - Neurological Exam Neurological exam: Present: no focal deficits - Psychiatric Psychiatric exam: Present: normal affect, normal mood - Skin Skin exam: Present: dry, intact, normal color, warm Results - Labs CBC & Chem 7: 01/07/19 05:30 01/07/19 05:30 Labs: Last Result 01/07/19 05:30 Calcium 7.5 L Entire Visit 01/07/19 01/07/19 05:30 05:30 Hgb 8.5 L Hct 26.0 L Total Bilirubin 0.3 AST 48 H ALT 35 - ABG ABG results: PT/INR, D-dimer PT 12.7 Seconds (9.4-12.1) H 01/05/19 04:30 Consult Discharge Plan - Plan Referrals: Nicolasa Estes CNP [Advanced Practice Nurse] - 01/14/19 3:40 pm Ysabel Gamez MD [Primary Care Provider] - <[email or web address] - Last Filed: 01/07/19 23:22> Date of Encounter: 01/07/19 - Time Spent With Patient Total time spent is greater than 50% in coordination of care (as documented) at patient's floor/unit and/or counseling patient: GI History of Present Illness - Data of Consult Requesting Physician: Candie Singh - Consult Narrative History of present illness: Ms. Frost is a 33 year old female - Constitutional Vitals: Temp Pulse Resp BP Pulse Ox 98.1 F 60 20 156/100 98 01/07/19 19:45 01/07/19 19:45 01/07/19 19:45 01/07/19 19:50 01/07/19 19:45 Results - Labs CBC & Chem 7: 01/07/19 05:30 01/07/19 05:30 - ABG ABG results: PT/INR, D-dimer PT 12.7 Seconds (9.4-12.1) H 01/05/19 04:30 - Attending Attestation I have personally performed a face to face evaluation on this patient. I have reviewed and agree with the care plan. History and Exam by me shows: Pt seen complaining of right sided abdominal pain. Termination: Alert and awake. Does has tenderness in the epigastric right upper quadrant area. Assessment: Patient with upper abdominal pain and normal LFTs. Rec: EGD to rule out gastric etiology for her symptoms
[2019-01-07] MEDS: *HR* HYDROcodone/Acet 5/325 mg TABLET PO PRN (19:45)
[2019-01-08] MEDS: 0.9 % Sodium Chloride 1,000 ML IVC SCH ×4 (00:59→23:07)
[2019-01-08 05:47] LABS: Hematocrit 24.9 % (35.3-44.9); Mean Corpuscular HGB Conc 32.1 g/dL (31.6-35.5); Mean Corpuscular Hemoglobin 28.8 pg (28.0-33.3); Mean Corpuscular Volume 89.6 fL (83.0-100.0); Mean Platelet Volume 9.1 fL (9.4-12.4); Platelet Count 165 K/mcL (140-400); Red Blood Count 2.78 M/mcL (3.82-4.97); Red Cell Distribution Width 11.8 % (11.5-14.5); White Blood Count 4.8 K/mcL (4.3-11.1)
[2019-01-08 06:07] LABS: Albumin 2.5 g/dL (3.5-5.7); Albumin/Globulin Ratio 0.8 (1.1-2.2); Bilirubin,Total 0.3 mg/dL (0.3-1.0); Calcium 7.5 mg/dL (8.6-10.3); Globulin 3.3 g/dL (2.4-3.5); Magnesium 1.3 mg/dL (1.6-2.6); Phosphorous 3.4 mg/dL (2.7-4.5); Potassium 3.5 mEq/L (3.5-5.1); Total Protein 5.8 g/dL (6.4-8.9)
[2019-01-08] MEDS: *HR* Heparin 5,000 UNIT/ML VIAL SQ SCH ×2 (06:53→17:19)
--- NOTE | 2019-01-08 09:20 | Internal Med Progress Note ---
Hospitalist Progress Note - Encounter Date of Encounter: 01/08/19 Time of Encounter: 09:17 - Subjective Interval History: The patient was seen and examined at the bedside Patient's diffuse abdomen pain GI was consulted , for plan for MRI of the abdomen Discussed with the infectious disease doctor yesterday, plan to discharge on oral linezolid after recovery of renal function - Exam Vitals: Temp Pulse Resp BP Pulse Ox 98.8 F 60 15 156/95 95 01/08/19 07:38 01/08/19 07:38 01/08/19 07:38 01/08/19 07:38 01/08/19 07:38 Exam: Physical examination: Gen.: Patient is alert and oriented, not in respiratory distress of pain HEENT: perrla , EOMI, no thyroid gland enlargement, no neck mass, supple neck Heart: S1 and S2 pey[place], normal sinus rhythm, no cardiac murmur no gallop rhythm Chest: Air entry equal bilaterally, clear chest, no wheezing, crackles or crepitation Abdomen: Soft, tender without rigidity, nondistended positive bowel sounds, no organomegaly Extremities: No pitting edema, peripheral pulses palpable, no cyanosis tenderness Neuro: Able to move all 4 limbs, DVT Prophylaxis: Heparin - Summary of Assessment and Plan Summary of Assessment and Plan: Ms. Frost is a 33-year-old female with a PMH of IV drug use with last use approximately 9 months ago. She is currently being treated for MRSA bacteremia and was on IV vancomycin. Her dose was decreased from twice daily to once daily few days ago however recent blood work revealed fungal mass in toxicity and worsening in her kidney dysfunction. Her symptoms as OH just following. ALEJANDRA: - Most likely related to IV vancomycin, NSAID use at home could be contributing factor Security Controls Assessor consulted Continue on IV fluid Serum creatinine trending down to 2.16 from 2.9 Avoid nephrotoxic medication - Renal diet MRSA bacteremia: - Echo done last visit was negative for infectious endocarditis, source unclear, patient does have history of IV drug use - Infectious disease is on board. Started on linezolid 600 mg twice a day by DMIRTY Tang, discussed with ID Blood cultures drawn 12/18/18 are +2 out of 2 sets for MRSA. Repeat blood cultures on 12/19/18 are +2 out of 2 sets. Repeat blood cultures drawn 12/21/18 are negative x 2 sets. Complicated due to septic emboli in the lungs, can not use daptomycin due to lack of pulmonary penetration Rheumatoid factor elevated. TTE negative for vegetations. CHRISTY negative. The patient had 1 major and 3 minor modified [place] criteria. Plan to treat through 01/18/19. Repeat blood cultures on 01/04/19 are no growth to date 2 sets. Additional blood culture drawn 01/05/19 from the patient's PICC line is also pending. No evidence of recurrence of infection as the patient is without sepsis criteria. Abdominal pain: - Right upper quadrant pain - HIDA scan showed no scintigraphic graphic findings of acute cholecystitis and evaluation for chronic cholecystitis limited by lack of evaluation of ejection fraction. There was delayed clearance of activity from the liver suggestive of underlying hepatocellular dysfunction. - LFT normal - GI consultation to r/o partial common duct obstruction - plan for MRI of abdomen Normocytic anemia: - Likely related to her active infection. - Monitor CBC - hb today 8.0 DVT prophylaxis:Subacute heparin CODE STATUS: Code - Time Spent with Patient Total time spent is greater than 50% in coordination of care (as documented) at patient's floor/unit and/or counseling patient: Internal Medicine: Result - Labs CBC & Chem 7: 01/08/19 05:25 01/08/19 05:25 Labs: Short CBC 01/08/19 Range/Units 05:25 WBC 4.8 (4.3-11.1) K/mcL Hgb 8.0 L (11.5-15.4) g/dL Hct 24.9 L (35.3-44.9) % Plt Count 165 (140-400) K/mcL BMP 01/08/19 05:25 Sodium 141 Potassium 3.5 Chloride 110 H Carbon Dioxide 23 BUN 14 Creatinine 2.16 H Glucose 88 Calcium 7.5 L Liver Function 01/08/19 Range/Units 05:25 Total Bilirubin 0.3 (0.3-1.0) mg/dL AST 64 H (13-39) Units/L ALT 58 H (7-52) Units/L Alkaline Phosphatase 63 (34-104) Units/L Albumin 2.5 L (3.5-5.7) g/dL - ABG Interpretation ABG results: PT/INR, D-dimer PT 12.7 Seconds (9.4-12.1) H 01/05/19 04:30 Consult Discharge Plan - Plan Referrals: Nicolasa Estes CNP [Advanced Practice Nurse] - 01/14/19 3:40 pm Ysabel Gamez MD [Primary Care Provider] -
--- NOTE | 2019-01-08 10:08 | Nephrology Progress Note ---
Date of Encounter: 01/08/19 Time of Encounter: 10:06 - Assessment and Plan (1) ALEJANDRA (acute kidney injury) Current Visit: Yes Status: Acute Normal kidney function in the past. Scr 2.16 and GFR 27 both improved. Uop noted at 500 past 24 hours. Give 1 additional Liter NS, then stop. Patient states she is voiding without difficulty. ALEJANDRA most likely related to IV vancomycin. NSAID use at home could be a contributing factor as well. Serum and urine studies completed. Retroperitoneal ultrasound completed. Strict I&O. Force fluids. Avoid nephrotoxins and renal dose all medications. We sill sign off at this time, if renal function decline, please reconsult. BMP 7 days after discharge and f/u with Dr. Darling in 4-6 weeks. (2) Anemia Current Visit: Yes Status: Acute Hemoglobin is 8. S/P 1 unit PRBC. We will defer transfusions to primary team. Qualifiers: Anemia type: other cause Other causes of anemia: other cause, not classified Qualified Code(s): D64.89 - Other specified anemias (3) History of bacteremia Current Visit: Yes Status: Acute Per infectious disease. (4) History of substance abuse Current Visit: Yes Status: Chronic Per primary. (5) Dehydration Current Visit: No Status: Acute 1 liter NS ordered then, d/c. (6) Hypocalcemia Current Visit: Yes Status: Acute Ionized Ca is 1.11. Subjective Principal diagnosis: acute kidney injury Interval history: Patient seen and examined, no complaints. Denies nausea vomiting or diarrhea. Denies chest pain or shortness of breath. Denies any urinary symptoms. Objective - Vital Signs Vital signs: Vital Signs Temp Pulse Resp BP Pulse Ox 01/08/19 07:38 98.8 F 60 15 156/95 95 01/08/19 03:57 98.3 F 62 15 151/84 99 01/07/19 19:50 156/100 01/07/19 19:45 98.1 F 60 20 165/95 98 01/07/19 15:07 98.7 F 65 14 145/87 95 Intake and Output 01/07/19 01/08/19 01/08/19 23:59 07:59 15:59 Intake Total 240 / 240 1250 / 1250 Balance 240 / -260 1250 / 1250 Intake: IV Fluids 1000 / 1000 0.9 % Sodium Chloride 1,000 ML 1000 / 1000 @ 100 mls/hr IVC .Q10H [facility] Rx#: [id number] Oral 240 / 240 250 / 250 Other: Meal Dinner Percent of Meal Consumed 100% Weight 62.1 kg Patient Weight 01/08/19 23:59 Weight 62.1 kg - General Appearance General appearance: Present: well-developed, well-nourished EENT: Present: ATNC, hearing intact, vision intact Neck: Present: supple Respiratory: Present: clear Cardiology: Present: no edema, normal S1, normal S2 Gastrointestinal: Present: normoactive bowel sounds, no tenderness, no guarding Integumentary: Present: no rash, warm and dry Neurologic: Present: alert and oriented x3 Musculoskeletal: Present: no deformities, no erythema Psychiatric: Present: mood/affect appropriate, cooperative - Lab 01/08/19 05:25 01/08/19 05:25 Most recent lab results 01/08/19 05:25 Calcium 7.5 L Phosphorus 3.4 Magnesium 1.3 L Consult Discharge Plan - Plan Referrals: Nicolasa Estes CNP [Advanced Practice Nurse] - 01/14/19 3:40 pm Ysabel Gamez MD [Primary Care Provider] -
--- NOTE | 2019-01-08 10:36 | Infectious Disease Progress No ---
ID Progress Note Date of Encounter: 01/08/19 Time of Encounter: 10:34 - Subjective Subjective: Patient seen and examined. No acute events noted overnight. Patient states overall she feels well. Denies fevers, chills, rigors. Denies chest pain, shortness of breath, or cough. Continues to complain of reproducible bilateral anterior and posterior rib pain that is worse with cough or deep inspiration. Complaints of right upper quadrant and epigastric abdominal pain. Denies nausea, vomiting, diarrhea, or constipation. Denies lower abdominal pain or urinary complaints. Denies back or flank pain. Denies joint or extremity pain. Denies oral thrush or skin rashes. She states her appetite is good. Pending EGD this morning. - Objective CBC & Chem 7: 01/11/19 03:45 01/11/19 03:45 - Line Documentation Line Documentation: PICC Line - Exam Vitals: Temp Pulse Resp BP Pulse Ox 98.8 F 60 15 156/95 95 01/08/19 07:38 01/08/19 07:38 01/08/19 07:38 01/08/19 07:38 01/08/19 07:38 Exam: Head: Atraumatic, normal inspection, normocephalic. Eye: EOMI, PERRLA, no scleral icterus noted. No subcutaneous conjunctival hemorrhage noted. ENT: Mucous membranes moist. No odontogenic infection noted. Neck: Normal inspection, no meningismus. Respiratory: Clear to auscultation. No rales, respiratory distress, rhonchi, or wheezes noted. Tenderness noted with palpation of the anterior posterior bilateral ribs. Cardiovascular: Regular rate and rhythm, S1 and S2 audible. No murmurs, rubs, or gallops. GI: Soft, nondistended, normal bowel sounds. Tenderness noted with palpation of the epigastric, right upper quadrant, and left upper quadrants. Extremities: No joint swelling, pedal edema, or tenderness noted. PICC line noted to the left upper extremity is transparent dressing clean, dry, and intact. Back: Normal inspection. No vertebral tenderness noted. Neurological: Alert, oriented 3, no focal deficits. Psychiatric: normal affect, normal mood. Skin: Dry, intact, warm. Normal color. No rashes. No endocarditis stigmata noted. - Assessment and Plan (1) ALEJANDRA (acute kidney injury) Current Visit: Yes Status: Acute Likely secondary to vancomycin toxicity. Vancomycin trough last week was greater than 50. Random vancomycin level on admission was 32. Creatinine 3.08 on admission. Improved to 2.16 today. Nephrology consulted and signed off. Appreciate recommendations. SNOMED Code(s): 58318200, 02522820 (2) Abdominal pain Current Visit: Yes Status: Acute Location: Epigastric, right upper quadrant, left upper quadrant. LFTs normal. Right upper quadrant ultrasound showed diffuse colon wall thickening. Findings are nonspecific for acute cholecystitis. HIDA scan showed no scintigraphic graphic findings of acute cholecystitis and evaluation for chronic cholecystitis limited by lack of evaluation of ejection fraction. There was delayed clearance of activity from the liver suggestive of underlying hepatocellular dysfunction. There was also delayed small bowel visualization which is nonspecific and may be a normal variant but also may be seen in biliary dyskinesia and partial common duct obstruction. GI consulted. EGD pending. Qualifiers: Abdominal location: epigastric Qualified Code(s): R10.13 - Epigastric pain SNOMED Code(s): 15590755 (3) Rib pain Current Visit: Yes Status: Acute Location: Bilateral, anterior and posterior. Etiology: Unclear. Chest x-ray showed reduction in the airspace disease, pleural effusion, nodular densities presumed septic emboli. There is residual basilar airspace disease greater on the right and faint visualization of nodular density greater in the right perihilar region. Pain management per the primary team. SNOMED Code(s): 150341249 (4) History of bacteremia Current Visit: Yes Status: Acute Causative organism: MRSA. Source: Unclear. The patient does have a history of IV drug use, but states she has been clean for about 7 months. Blood cultures drawn 12/18/18 are +2 out of 2 sets for MRSA. Repeat blood cultures on 12/19/18 are +2 out of 2 sets. Repeat blood cultures drawn 12/21/18 are negative x 2 sets. Complicated due to septic emboli in the lungs. Rheumatoid factor elevated. TTE negative for vegetations. CHRISTY negative. The patient had 1 major and 3 minor modified [place] criteria. Plan to treat through 01/18/19. Repeat blood cultures on 01/04/19 are no growth to date 2 sets. Additional blood culture drawn 01/05/19 from the patient's PICC line is NGTD. No evidence of recurrence of infection as the patient is without sepsis criteria. Re-started antibiotics 01/06/19. Will plan to complete course of treatment with PO Zyvox since the patient completed more than two weeks of IV antibiotics and it appears her bacteremia has resolved. 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 HIV nonreactive. Hep C negative. Hep B immune. The patient states she thinks she got the Hep B vaccinations. SNOMED Code(s): 644524375 (6) Anemia Current Visit: Yes Status: Acute Hemoglobin 6.9 on admission. Possibly secondary to acute kidney injury vs other. Fecal occult blood test was negative. Improved after 1 unit of packed red cells. Further workup and management per the primary and nephrology teams. Qualifiers: Anemia type: other cause Other causes of anemia: other cause, not classified Qualified Code(s): D64.89 - Other specified anemias SNOMED Code(s): 936636048 - Recommendations Recommendations: Await repeat blood cultures. Await EGD. ALEJANDRA management and workup per the nephrology team. Consider hematology/oncology to evaluate for leukopenia and anemia. Continue linezolid 600mg PO BID. Duration of treatment depends on the clinical picture, likely through 01/18/19. Monitor renal function and dose adjust antibiotics. Contact precautions per hospital policy. Continue to monitor renal function closely. Can discontinue PICC Line at discharge since the patient can complete course of treatment with PO antibiotics. Follow up with ID 01/14/19 at 1540. Consult Discharge Plan - Plan Referrals: Nicolasa Estes CNP [Advanced Practice Nurse] - 01/14/19 3:40 pm Ysabel Gamez MD [Primary Care Provider] - 01/19/19 10:45 am Prescriptions: Linezolid [Zyvox] 600 mg PO BID 6 Days #12 tablet - Attending Attestation I have personally performed a face to face evaluation on this patient. I have reviewed and agree with the care plan. History and Exam by me shows: Assessment and plan: 1.MRSA bacteremia secondary to IV drug use with septic emboli to the lungs 2.IV drug user 3.Acute kidney injury secondary to vancomycin toxicity 4.Anemia Recommendations Continue linezolid 600mg PO BID. Duration of treatment depends on the clinical picture, likely through 01/18/19. Monitor renal function and dose adjust antibiotics. Contact precautions per hospital policy. Continue to monitor renal function closely. Can discontinue PICC Line at discharge since the patient can complete course of treatment with PO antibiotics. Follow up with ID 01/14/19 at 1540.
[2019-01-08] MEDS ORDERED: 0.9 % Sodium Chloride 1,000 ML ONE (11:41)
[2019-01-08] MEDS ORDERED: Lidocaine -MPF 2% 2 ML VIAL ONE (12:06)
[2019-01-08] MEDS ORDERED: Propofol 500 MG/50 ML INFUS..BTL ONE (12:06)
--- NOTE | 2019-01-08 12:41 | Anesthesia Evaluation PreOp ---
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 Any Significant HX Other Medical History: Renal (ALEJANDRA), Other (anemia, abdominal pain, MRSA bacteremia) Anesthesia History: No Prior Anesthetic Complications, Past Anesthesia (ear tubes, tubal ligation) Test: Negative (01/04/19) Alcohol Use: none Drug use: IV Drug Use Medications and Allergies Diclofenac Sodium [Voltaren] 1 appl TP BID PRN 01/04/19 [History] Ibuprofen [Ibu] 800 mg PO Q8H PRN 01/04/19 [History] Vancomycin HCl 1,250 mg IV Q24H 01/04/19 [History] hydrOXYzine pamoate [Vistaril] 25 mg PO HS 01/04/19 [History] Allergy/AdvReac Type Severity Reaction Status Date / Time No Known Allergies Allergy Verified 12/19/18 17:54 - Meds/Allergy Pre-op Review Medications Reviewed: Yes Allergies Reviewed: Yes Beta Blockers on Current Med List: No Anesthesia Results - Labs 01/08/19 05:25 01/08/19 05:25 - Imaging EKG: report reviewed ( Interpretive Statements Sinus tachycardia Electronically Signed On 12-19-2018 14:11:13 EDT by Anand Regalado) Additional studies: Impressions: LVEF 65%. Normal LV size and function. Right ventricle was normal in size and systolic function. No pulmonary hypertension. Pleural effusion noted. No significant valvular dysfunction. No evidence of endocarditis visualized. Recommend repeat study as clinically indicated. 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
--- NOTE | 2019-01-08 13:24 | Anesthesia Evaluation Post Op ---
Date of Encounter: 01/08/19 Time of Encounter: 13:23 - Vital Signs Vital Signs: Vital Signs/O2 Sat, Most Current Temp Pulse Resp BP Pulse Ox 98.3 F 53 18 177/89 97 01/08/19 12:31 01/08/19 12:31 01/08/19 12:31 01/08/19 12:01/08/19 12:31 - Lungs Lungs: Clear Ascult./Percussion - Airway Airway: Non-obstructed - Cardiovascular Regular Rate - Mental Status Mental Status: Alert & Oriented, Answers Appropriately - Pain Pain Scale: 0 Pain Scale used: Numeric (1 - 10) - Nausea Vomiting Nausea Vomiting: Not Present - Hydration Hydration: NPO - Discharge PostOp Status: Transfer Patient to floor
[2019-01-08] MEDS: Pantoprazole 40 MG VIAL IVP SCH (13:43)
[2019-01-08] MEDS: Linezolid 600 MG TABLET PO SCH ×2 (13:43→19:51)
[2019-01-08] MEDS: Nicotine 21 MG PATCH.TD24 TD SCH (13:43)
[2019-01-08] MEDS: *HR* HYDROcodone/Acet 5/325 mg TABLET PO PRN (19:51)
[2019-01-08] MEDS: hydrOXYzine pamoate 25 MG CAPSULE PO SCH ×2 (19:52)
[2019-01-09] MEDS: *HR* Heparin 5,000 UNIT/ML VIAL SQ SCH ×2 (04:51→17:31)
[2019-01-09 05:02] LABS: Hemoglobin 8.3 g/dL (11.5-15.4); Mean Corpuscular HGB Conc 33.2 g/dL (31.6-35.5); Mean Corpuscular Hemoglobin 29.9 pg (28.0-33.3); Mean Corpuscular Volume 89.9 fL (83.0-100.0); Mean Platelet Volume 9.2 fL (9.4-12.4); Platelet Count 158 K/mcL (140-400); Red Blood Count 2.78 M/mcL (3.82-4.97); Red Cell Distribution Width 11.9 % (11.5-14.5); White Blood Count 5.8 K/mcL (4.3-11.1)
[2019-01-09 05:16] LABS: Albumin 2.6 g/dL (3.5-5.7); Albumin/Globulin Ratio 0.8 (1.1-2.2); Bilirubin,Total 0.4 mg/dL (0.3-1.0); Calcium 7.2 mg/dL (8.6-10.3); Globulin 3.1 g/dL (2.4-3.5); Magnesium 1.3 mg/dL (1.6-2.6); Phosphorous 2.7 mg/dL (2.7-4.5); Potassium 3.5 mEq/L (3.5-5.1); Total Protein 5.7 g/dL (6.4-8.9)
[2019-01-09] MEDS: *HR* HYDROcodone/Acet 5/325 mg TABLET PO PRN ×2 (06:04→17:32)
[2019-01-09] MEDS: 0.9 % Sodium Chloride 1,000 ML IVC SCH ×3 (09:43→22:13)
[2019-01-09] MEDS: Linezolid 600 MG TABLET PO SCH ×2 (09:44→20:00)
[2019-01-09] MEDS: Nicotine 21 MG PATCH.TD24 TD SCH (09:45)
[2019-01-09] MEDS: Pantoprazole 40 MG VIAL IVP SCH (09:46)
--- NOTE | 2019-01-09 09:54 | Internal Med Progress Note ---
Hospitalist Progress Note - Encounter Date of Encounter: 01/09/19 Time of Encounter: 09:52 - Subjective Interval History: Patient was seen and examined at the bedside. Patient still complained of abdominal pain EEG done yesterday revealed non- bleeding stomach ulcer, continue on pantoprazole Otherwise no event overnight - Exam Vitals: Temp Pulse Resp BP Pulse Ox 98.0 F 61 12 158/81 98 01/09/19 06:41 01/09/19 06:41 01/09/19 05:23 01/09/19 06:41 01/09/19 05:23 Exam: Physical examination: Gen.: Patient is alert and oriented, not in respiratory distress of pain HEENT: perrla , EOMI, no thyroid gland enlargement, no neck mass, supple neck Heart: S1 and S2 pe[place], normal sinus rhythm, no cardiac murmur no gallop rhythm Chest: Air entry equal bilaterally, clear chest, no wheezing, crackles or crepitation Abdomen: Soft, tender without rigidity, nondistended positive bowel sounds, no organomegaly Extremities: No pitting edema, peripheral pulses palpable, no cyanosis tenderness Neuro: Able to move all 4 limbs, DVT Prophylaxis: Heparin - Summary of Assessment and Plan Summary of Assessment and Plan: Ms. Frost is a 33-year-old female with a PMH of IV drug use with last use approximately 9 months ago. She is currently being treated for MRSA bacteremia and was on IV vancomycin. Her dose was decreased from twice daily to once daily few days ago however recent blood work revealed fungal mass in toxicity and worsening in her kidney dysfunction. Her symptoms as [place] just following. ALEJANDRA: - Most likely related to IV vancomycin, NSAID use at home could be contributing factor Front Office Java Developer consulted Continue on IV fluid Serum creatinine trending down to 1.9 from 2.9 Avoid nephrotoxic medication - Renal diet MRSA bacteremia: - Echo done last visit was negative for infectious endocarditis, source unclear, patient does have history of IV drug use - Infectious disease is on board. Started on linezolid 600 mg twice a day by DMITRY Tang, discussed with ID Blood cultures drawn 12/18/18 are +2 out of 2 sets for MRSA. Repeat blood cultures on 12/19/18 are +2 out of 2 sets. Repeat blood cultures drawn 12/21/18 are negative x 2 sets. Complicated due to septic emboli in the lungs, can not use daptomycin due to lack of pulmonary penetration Rheumatoid factor elevated. TTE negative for vegetations. CHRISTY negative. The patient had 1 major and 3 minor modified [place] criteria. Plan to treat through 01/18/19. Repeat blood cultures on 01/04/19 are no growth to date 2 sets. Additional blood culture drawn 01/05/19 from the patient's PICC line is also pending. No evidence of recurrence of infection as the patient is without sepsis criteria. Abdominal pain: - Right upper quadrant pain - HIDA scan showed no scintigraphic graphic findings of acute cholecystitis and evaluation for chronic cholecystitis limited by lack of evaluation of ejection fraction. There was delayed clearance of activity from the liver suggestive of underlying hepatocellular dysfunction. - LFT normal - GI consultation - Underwent EGD with the finding of negative bleeding stomach ulcer - Continue on pantoprazole Normocytic anemia: - Likely related to her active infection. - Monitor CBC - hb today 8.3 DVT prophylaxis:Subacute heparin CODE STATUS: Code - Time Spent with Patient Total time spent is greater than 50% in coordination of care (as documented) at patient's floor/unit and/or counseling patient: Internal Medicine: Result - Labs CBC & Chem 7: 01/09/19 04:00 01/09/19 04:00 Labs: Short CBC 01/09/19 Range/Units 04:00 WBC 5.8 (4.3-11.1) K/mcL Hgb 8.3 L (11.5-15.4) g/dL Hct 25.0 L (35.3-44.9) % Plt Count 158 (140-400) K/mcL BMP 01/09/19 04:00 Sodium 140 Potassium 3.5 Chloride 111 H Carbon Dioxide 22 L BUN 12 Creatinine 1.97 H Glucose 85 Calcium 7.2 L Liver Function 01/09/19 Range/Units 04:00 Total Bilirubin 0.4 (0.3-1.0) mg/dL AST 48 H (13-39) Units/L ALT 58 H (7-52) Units/L Alkaline Phosphatase 57 (34-104) Units/L Albumin 2.6 L (3.5-5.7) g/dL - ABG Interpretation ABG results: PT/INR, D-dimer PT 12.7 Seconds (9.4-12.1) H 01/05/19 04:30 Consult Discharge Plan - Plan Referrals: Nicolasa Estes CNP [Advanced Practice Nurse] - 01/14/19 3:40 pm Ysabel Gamez MD [Primary Care Provider] -
[2019-01-09] MEDS: hydrOXYzine pamoate 25 MG CAPSULE PO SCH (20:00)
[2019-01-10] MEDS: *HR* HYDROcodone/Acet 5/325 mg TABLET PO PRN ×3 (00:02→19:59)
[2019-01-10] MEDS: *HR* Heparin 5,000 UNIT/ML VIAL SQ SCH ×2 (05:43→17:46)
[2019-01-10 06:07] LABS: Hematocrit 24.3 % (35.3-44.9); Mean Corpuscular HGB Conc 32.9 g/dL (31.6-35.5); Mean Corpuscular Hemoglobin 29.1 pg (28.0-33.3); Mean Corpuscular Volume 88.4 fL (83.0-100.0); Platelet Count 152 K/mcL (140-400); Red Blood Count 2.75 M/mcL (3.82-4.97); Red Cell Distribution Width 11.9 % (11.5-14.5); White Blood Count 4.7 K/mcL (4.3-11.1)
[2019-01-10 06:25] LABS: Albumin 2.4 g/dL (3.5-5.7); Albumin/Globulin Ratio 0.8 (1.1-2.2); Bilirubin,Total 0.3 mg/dL (0.3-1.0); Magnesium 1.6 mg/dL (1.6-2.6); Phosphorous 3.2 mg/dL (2.7-4.5); Potassium 3.3 mEq/L (3.5-5.1); Total Protein 5.4 g/dL (6.4-8.9)
[2019-01-10] MEDS: Linezolid 600 MG TABLET PO SCH ×2 (08:57→19:58)
[2019-01-10] MEDS: 0.9 % Sodium Chloride 1,000 ML IVC SCH ×3 (08:57→19:06)
[2019-01-10] MEDS: Nicotine 21 MG PATCH.TD24 TD SCH (08:57)
[2019-01-10] MEDS: Pantoprazole 40 MG VIAL IVP SCH (08:57)
--- NOTE | 2019-01-10 10:47 | Internal Med Progress Note ---
Hospitalist Progress Note - Encounter Date of Encounter: 01/10/19 Time of Encounter: 10:44 - Subjective Interval History: The patient was seen and examined at the bedside Kidney function continued to improve on IV fluid Plan to discharge home tomorrow on oral Zyvox 600 mg twice a day - Exam Vitals: Temp Pulse Resp BP Pulse Ox 98 F 82 14 139/84 95 01/10/19 07:24 01/10/19 07:24 01/10/19 04:28 01/10/19 07:24 01/10/19 04:28 Exam: Physical examination: Gen.: Patient is alert and oriented, not in respiratory distress of pain HEENT: perrla , EOMI, no thyroid gland enlargement, no neck mass, supple neck Heart: S1 and S2 [place], normal sinus rhythm, no cardiac murmur no gallop rhythm Chest: Air entry equal bilaterally, clear chest, no wheezing, crackles or cr epitation Abdomen: Soft, tender without rigidity, nondistended positive bowel sounds, no organomegaly Extremities: No pitting edema, peripheral pulses palpable, no cyanosis tenderness Neuro: Able to move all 4 limbs, DVT Prophylaxis: Heparin - Summary of Assessment and Plan Summary of Assessment and Plan: Ms. Frost is a 33-year-old female with a PMH of IV drug use with last use approximately 9 months ago. She is currently being treated for MRSA bacteremia and was on IV vancomycin. Her dose was decreased from twice daily to once daily few days ago however recent blood work revealed fungal mass in toxicity and worsening in her kidney dysfunction. Her symptoms as [place] just following. ALEJANDRA: - Most likely related to IV vancomycin, NSAID use at home could be contributing factor [employer] Back Tender consulted Continue on IV fluid Serum creatinine trending down to 1.79 from 2.9 replace hypokalemia orally Avoid nephrotoxic medication - Renal diet MRSA bacteremia: - Echo done last visit was negative for infectious endocarditis, source unclear, patient does have history of IV drug use - Infectious disease is on board. Started on linezolid 600 mg twice a day by DMITRY Tang, discussed with ID Blood cultures drawn 12/18/18 are +2 out of 2 sets for MRSA. Repeat blood cultures on 12/19/18 are +2 out of 2 sets. Repeat blood cultures drawn 12/21/18 are negative x 2 sets. Complicated due to septic emboli in the lungs, can not use daptomycin due to lack of pulmonary penetration Rheumatoid factor elevated. TTE negative for vegetations. CHRISTY negative. The patient had 1 major and 3 minor modified [place] criteria. Plan to treat through 01/18/19. Repeat blood cultures on 01/04/19 are no growth to date 2 sets. Additional blood culture drawn 01/05/19 from the patient's PICC line is also pending. No evidence of recurrence of infection as the patient is without sepsis criteria. Abdominal pain: - Right upper quadrant pain - HIDA scan showed no scintigraphic graphic findings of acute cholecystitis and evaluation for chronic cholecystitis limited by lack of evaluation of ejection fraction. There was delayed clearance of activity from the liver suggestive of underlying hepatocellular dysfunction. - LFT normal - GI consultation - Underwent EGD with the finding of negative bleeding stomach ulcer - Continue on pantoprazole Normocytic anemia: - Likely related to her active infection. - Monitor CBC - hb today 8. - check iron studies DVT prophylaxis:Subacute heparin CODE STATUS: Code - Time Spent with Patient Total time spent is greater than 50% in coordination of care (as documented) at patient's floor/unit and/or counseling patient: Internal Medicine: Result - Labs CBC & Chem 7: 01/10/19 05:59 01/10/19 05:59 Labs: Short CBC 01/10/19 Range/Units 05:59 WBC 4.7 (4.3-11.1) K/mcL Hgb 8.0 L (11.5-15.4) g/dL Hct 24.3 L (35.3-44.9) % Plt Count 152 (140-400) K/mcL BMP 01/10/19 05:59 Sodium 141 Potassium 3.3 L Chloride 110 H Carbon Dioxide 25 BUN 11 Creatinine 1.79 H Glucose 81 Calcium 7.0 L Liver Function 01/10/19 Range/Units 05:59 Total Bilirubin 0.3 (0.3-1.0) mg/dL AST 26 (13-39) Units/L ALT 40 (7-52) Units/L Alkaline Phosphatase 60 (34-104) Units/L Albumin 2.4 L (3.5-5.7) g/dL - ABG Interpretation ABG results: PT/INR, D-dimer PT 12.7 Seconds (9.4-12.1) H 01/05/19 04:30 Consult Discharge Plan - Plan Referrals: Nicolasa Estes CNP [Advanced Practice Nurse] - 01/14/19 3:40 pm Ysabel Gamez MD [Primary Care Provider] -
[2019-01-10] MEDS: hydrOXYzine pamoate 25 MG CAPSULE PO SCH (19:59)
[2019-01-11] MEDS: *HR* HYDROcodone/Acet 5/325 mg TABLET PO PRN ×2 (02:04→09:36)
[2019-01-11 03:57] LABS: Hematocrit 25.4 % (35.3-44.9); Hemoglobin 8.3 g/dL (11.5-15.4); Mean Corpuscular HGB Conc 32.7 g/dL (31.6-35.5); Mean Corpuscular Volume 88.8 fL (83.0-100.0); Mean Platelet Volume 9.3 fL (9.4-12.4); Platelet Count 152 K/mcL (140-400); Red Blood Count 2.86 M/mcL (3.82-4.97); Red Cell Distribution Width 12.1 % (11.5-14.5); White Blood Count 5.6 K/mcL (4.3-11.1)
[2019-01-11 04:21] LABS: Albumin 2.1 g/dL (3.5-5.7); Albumin/Globulin Ratio 0.8 (1.1-2.2); Bilirubin,Total 0.2 mg/dL (0.3-1.0); Globulin 2.5 g/dL (2.4-3.5); Magnesium 1.2 mg/dL (1.6-2.6); Phosphorous 2.4 mg/dL (2.7-4.5); Potassium 3.1 mEq/L (3.5-5.1); Total Protein 4.6 g/dL (6.4-8.9)
[2019-01-11] MEDS: 0.9 % Sodium Chloride 1,000 ML IVC SCH ×2 (05:12→05:27)
[2019-01-11] MEDS: *HR* Heparin 5,000 UNIT/ML VIAL SQ SCH (05:24)
[2019-01-11] MEDS: Nicotine 21 MG PATCH.TD24 TD SCH (09:16)
[2019-01-11] MEDS: Pantoprazole 40 MG VIAL IVP SCH (09:17)
--- NOTE | 2019-01-11 09:32 | Infectious Disease Progress No ---
ID Progress Note Date of Encounter: 01/11/19 Time of Encounter: 09:30 - Subjective Subjective: Patient seen and examined. No acute events noted overnight. Patient states overall she feels well, but is tired because she didn't get any sleep last night. Denies fevers, chills, rigors. Denies chest pain, shortness of breath, or cough. Continues to complain of reproducible bilateral anterior and posterior rib pain that is worse with cough or deep inspiration that comes and goes. Complaints of right upper quadrant and epigastric abdominal pain, but states it is improved. Denies nausea, vomiting, diarrhea, or constipation. Denies lower abdominal pain or urinary complaints. Denies back or flank pain. Denies joint or extremity pain. Denies oral thrush or skin rashes. She states her appetite is good. - Objective CBC & Chem 7: 01/11/19 03:45 01/11/19 13:39 - Line Documentation Line Documentation: PICC Line - Exam Vitals: Temp Pulse Resp BP Pulse Ox 98.1 F 64 18 140/80 97 01/11/19 07:41 01/11/19 07:41 01/11/19 07:41 01/11/19 07:41 01/11/19 07:41 Exam: Head: Atraumatic, normal inspection, normocephalic. Eye: EOMI, PERRLA, no scleral icterus noted. No subcutaneous conjunctival hemorrhage noted. ENT: Mucous membranes moist. No odontogenic infection noted. Neck: Normal inspection, no meningismus. Respiratory: Clear to auscultation. No rales, respiratory distress, rhonchi, or wheezes noted. Tenderness noted with palpation of the anterior posterior bilateral ribs. Cardiovascular: Regular rate and rhythm, S1 and S2 audible. No murmurs, rubs, or gallops. GI: Soft, nondistended, normal bowel sounds. Tenderness noted with palpation of the epigastric, right upper quadrant, and left upper quadrants. Extremities: No joint swelling, pedal edema, or tenderness noted. PICC line noted to the left upper extremity is transparent dressing clean, dry, and intact. Back: Normal inspection. No vertebral tenderness noted. Neurological: Alert, oriented 3, no focal deficits. Psychiatric: normal affect, normal mood. Skin: Dry, intact, warm. Normal color. No rashes. No endocarditis stigmata noted. - Assessment and Plan (1) ALEJANDRA (acute kidney injury) Status: Acute Likely secondary to vancomycin toxicity. Vancomycin trough last week was greater than 50. Random vancomycin level on admission was 32. Creatinine 3.08 on admission. Improved to 1.41 today. Nephrology consulted and signed off. Appreciate recommendations. SNOMED Code(s): 26509727, 22565271 (2) Abdominal pain Status: Acute Location: Epigastric, right upper quadrant, left upper quadrant. LFTs normal. Right upper quadrant ultrasound showed diffuse colon wall thickening. Findings are nonspecific for acute cholecystitis. HIDA scan showed no scintigraphic graphic findings of acute cholecystitis and evaluation for chronic cholecystitis limited by lack of evaluation of ejection fraction. There was delayed clearance of activity from the liver suggestive of underlying hepatocellular dysfunction. There was also delayed small bowel visualization which is nonspecific and may be a normal variant but also may be seen in biliary dyskinesia and partial common duct obstruction. Status post EGD 01/08/19 that revealed a nonbleeding gastric ulcer. Management per the GI team. Qualifiers: Abdominal location: epigastric Qualified Code(s): R10.13 - Epigastric pain SNOMED Code(s): 26510392 (3) Rib pain Status: Acute Location: Bilateral, anterior and posterior. Etiology: Unclear. Chest x-ray showed reduction in the airspace disease, pleural effusion, nodular densities presumed septic emboli. There is residual basilar airspace disease greater on the right and faint visualization of nodular density greater in the right perihilar region. Pain management per the primary team. SNOMED Code(s): 384311805 (4) History of bacteremia Status: Acute Causative organism: MRSA. Source: Unclear. The patient does have a history of IV drug use, but states she has been clean for about 7 months. Blood cultures drawn 12/18/18 are +2 out of 2 sets for MRSA. Repeat blood cultures on 12/19/18 are +2 out of 2 sets. Repeat blood cultures drawn 12/21/18 are negative x 2 sets. Complicated due to septic emboli in the lungs. Rheumatoid factor elevated. TTE negative for vegetations. CHRISTY negative. The patient had 1 major and 3 minor modified [place] criteria. Repeat blood cultures on 01/04/19 are no growth to date 2 sets. Additional blood culture drawn 01/05/19 from the patient's PICC line is NGTD. No evidence of recurrence of infection as the patient is without sepsis criteria. Re-started antibiotics 01/06/19. Will plan to complete course of treatment with PO Zyvox since the patient completed more than two weeks of IV antibiotics and it appears her bacteremia has resolved. Plan to treat through 01/17/19. 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 HIV nonreactive. Hep C negative. Hep B immune. The patient states she thinks she got the Hep B vaccinations. SNOMED Code(s): 327328020 (6) Anemia Status: Acute Hemoglobin 6.9 on admission. Possibly secondary to acute kidney injury vs other. Fecal occult blood test was negative. Improved after 1 unit of packed red cells. Further workup and management per the primary and nephrology teams. Qualifiers: Anemia type: other cause Other causes of anemia: other cause, not classified Qualified Code(s): D64.89 - Other specified anemias SNOMED Code(s): 697846515 - Recommendations Recommendations: ALEJANDRA management and workup per the nephrology team. Abdominal pain management per the GI team. Consider hematology/oncology to evaluate for leukopenia and anemia. Continue linezolid 600mg PO BID. Duration of treatment depends on the clinical picture, likely through 01/17/19. Monitor renal function and dose adjust antibiotics. Contact precautions per hospital policy. Continue to monitor renal function closely. Can discontinue PICC Line at discharge since the patient can complete course of treatment with PO antibiotics. Follow up with ID 01/14/19 at 1540. Consult Discharge Plan - Plan Instructions: Nicotine (Absorbed through the skin), Pantoprazole (By mouth), Linezolid (By mouth), Acute Kidney Injury (DC) Additional Instructions: BMP 7 days after discharge and f/u with Dr. Darling in 4-6 weeks. (This is reccomendations from nephrology). Please make sure you get this drawn, come to nearest [place] affiliated lab. Take coupon card with you to pharmacy for Zyvox so you can get this [place]. Referrals: Nicolasa Estes CNP [Advanced Practice Nurse] - 01/14/19 3:40 pm Ysabel Gamez MD [Primary Care Provider] - 01/19/19 10:45 am Fabián Jaimes MD [Partnered Physician] - (Physicians office will call patient to schedule a follow-up appointment. ) Prescriptions: Nicotine Patch [Nicoderm] 21 mg TD DAILY #15 patch.[id number] Pantoprazole Sodium 40 mg PO DAILY #30 tablet. Linezolid [Zyvox] 600 mg PO BID 6 Days #12 tablet - Attending Attestation I have personally performed a face to face evaluation on this patient. I have reviewed and agree with the care plan. History and Exam by me shows: Assessment and plan: 1.MRSA bacteremia secondary to IV drug use with septic emboli to the lungs 2.IV drug user 3.Acute kidney injury secondary to vancomycin toxicity 4.Anemia Recommendations Continue linezolid 600mg PO BID. Duration of treatment depends on the clinical picture, likely through 01/18/19.
[2019-01-11] MEDS: Linezolid 600 MG TABLET PO SCH (09:36)
[2019-01-11 12:03] VITALS: BP 145/91
[2019-01-11 13:58] LABS: ABG Ionized Calcium 1.13 mmol/L (1.15-1.35)
[2019-01-11 14:16] LABS: Magnesium 2.2 mg/dL (1.6-2.6); Phosphorous 2.8 mg/dL (2.7-4.5)
[2019-01-11 14:18] LABS: Calcium 7.6 mg/dL (8.6-10.3); Potassium 4.3 mEq/L (3.5-5.1)
--- NOTE | 2019-01-11 14:55 | Discharge Summary ---
Orders not resulted at time of discharge: Pending orders 01/05/19 10:30 Culture,Blood [BC] Routine 01/08/19 13:01 Surgical Pathology [PTH] Routine Date of Encounter: 01/11/19 Time of Encounter: 14:47 - Discharge Diagnosis (1) ALEJANDRA (acute kidney injury) Priority: Primary Status: Acute Assessment and Plan: ALEJANDRA: - Most likely related to IV vancomycin, NSAID use at home could be contributing factor Long Term Care Administrator consulted Continue on IV fluid Serum creatinine trending down to 1.79 from 2.9 replace hypokalemia orally Avoid nephrotoxic medication - Renal diet MRSA bacteremia: - Echo done last visit was negative for infectious endocarditis, source unclear, patient does have history of IV drug use - Infectious disease is on board. Started on linezolid 600 mg twice a day by DMITRY Tang, discussed with ID Blood cultures drawn 12/18/18 are +2 out of 2 sets for MRSA. Repeat blood cultures on 12/19/18 are +2 out of 2 sets. Repeat blood cultures drawn 12/21/18 are negative x 2 sets. Complicated due to septic emboli in the lungs, can not use daptomycin due to lack of pulmonary penetration Rheumatoid factor elevated. TTE negative for vegetations. CHRISTY negative. The patient had 1 major and 3 minor modified [place] criteria. Plan to treat through 01/18/19. Repeat blood cultures on 01/04/19 are no growth to date 2 sets. Additional blood culture drawn 01/05/19 from the patient's PICC line is also pending. No evidence of recurrence of infection as the patient is without sepsis criteria. Abdominal pain: - Right upper quadrant pain - HIDA scan showed no scintigraphic graphic findings of acute cholecystitis and evaluation for chronic cholecystitis limited by lack of evaluation of ejection fraction. There was delayed clearance of activity from the liver suggestive of underlying hepatocellular dysfunction. - LFT normal - GI consultation - Underwent EGD with the finding of negative bleeding stomach ulcer - Continue on pantoprazole Normocytic anemia: - Likely related to her active infection. - Monitor CBC - hb today 8. - check iron studies DVT prophylaxis:Subacute heparin CODE STATUS: Code Hospital course: 33-year-old female with a PMH of IV drug use with last use approximately 9 months ago. She was treated for MRSA bacteremia with septic emboli and was on IV vancomycin, patient was readmitted to the hospital because of acute kidney injury secondary to IV vancomycin on probably secondary to NSAIDs, both train operator and infectious disease consulted, patient started on IV fluid, serum creatinine trending down from 2.9 on admission to 1.5 on discharge. For the MRSA bacteremia repeated blood culture negative, ID switched her to oral linezolid 600 mg twice a day till January 17, 2019 Blood cultures drawn 12/18/18 are +2 out of 2 sets for MRSA. Repeat blood cultures on 12/19/18 are +2 out of 2 sets. Repeat blood cultures drawn 12/21/18 are negative x 2 sets. Complicated due to septic emboli in the lungs. Rheumatoid factor elevated. TTE negative for vegetations. CHRISTY negative. The patient had 1 major and 3 minor modified [place]agher criteria. Repeat blood cultures on 01/04/19 are no growth to date 2 sets. Additional blood culture drawn 01/05/19 from the patient's PICC line is NGTD. No evidence of recurrence of infection as the patient is without sepsis criteria. Re-started antibiotics 01/06/19. plan to complete course of treatment with PO Zyvox since the patient completed more than two weeks of IV antibiotics and it appears her bacteremia has resolved. Plan to treat through 01/17/19. Also the patient complained of epigastric abdominal pain, ultrasound showed diffuse colon wall thickening the finding nonspecific HIDA scan showed no evidence of acute cholecystitis. GI was consulted and patient underwent EGD with the finding of a nonbleeding stomach ulcer, started on pantoprazole 40 mg dialy Serum electrolytes deficiency including hypokalemia and hypophosphatemia hypomagnesemia are replaced. follow up with PCP and need BMP in 1 week - Time Spent with Patient Total time spent providing and/or coordinating discharge services: 34 min - Discharge Medications Prescriptions: New Linezolid [Zyvox] 600 mg PO BID 6 Days #12 tablet Nicotine Patch [Nicoderm] 21 mg TD DAILY #15 patch.td24 Pantoprazole Sodium 40 mg PO DAILY #30 tablet.dr Continued hydrOXYzine pamoate [Vistaril] 25 mg PO HS Discontinued Diclofenac Sodium [Voltaren] 1 appl TP BID PRN PRN Reason: Pain Vancomycin HCl 1,250 mg IV Q24H Ibuprofen [Ibu] 800 mg PO Q8H PRN PRN Reason: pain/swelling Home Medications: hydrOXYzine pamoate [Vistaril] 25 mg PO HS 01/04/19 [History] Linezolid [Zyvox] 600 mg PO BID 6 Days #12 tablet 01/11/19 [Rx] Nicotine Patch [Nicoderm] 21 mg TD DAILY #15 patch.td24 01/11/19 [Rx] Pantoprazole Sodium 40 mg PO DAILY #30 tablet. 01/11/19 [Rx] Allergies/Adverse Reactions: Allergy/AdvReac Type Severity Reaction Status Date / Time No Known Allergies Allergy Verified 12/19/18 17:54 Date of admission: 01/04/19 20:41 Primary care physician: Ysabel Gamez Consults: 01/04/19 19:55 Consult to Infectious Diseases [CONS] Stat Consulting Provider: Infectious Disease Nancy Reason for Consult: MRSA on vanco with ALEJANDRA Call Completed: Yes 01/05/19 07:31 Consult to Nephrology [CONS] Routine Consulting Provider: [facility]/CHAS/SALLY/MIGUEL A Reason for Consult: ALEJANDRA likely from vancomycin toxicity Call Completed: Yes 01/07/19 09:54 Consult to Gastroenterology [CONS] Routine Consulting Provider: [facility] [place] Reason for Consult: possible partial CBD obstruction Call Completed: Yes - Constitutional Vitals: Temp Pulse Resp BP Pulse Ox 99.2 F 76 14 145/91 96 01/11/19 11:00 01/11/19 11:00 01/11/19 11:00 01/11/19 11:00 01/11/19 11:00 Exam: Physical examination: Gen.: Patient is alert and oriented, not in respiratory distress of pain HEENT: perrla , EOMI, no thyroid gland enlargement, no neck mass, supple neck Heart: S1 and S2 [place], normal sinus rhythm, no cardiac murmur no gallop rhythm Chest: Air entry equal bilaterally, clear chest, no wheezing, crackles or crepitation Abdomen: Soft, tender without rigidity, nondistended positive bowel sounds, no organomegaly Extremities: No pitting edema, peripheral pulses palpable, no cyanosis tenderness Neuro: Able to move all 4 limbs, - Patient Status Disposition: Home, Self-Care Condition: Fair - Discharge Instructions Instructions: Linezolid (By mouth), Acute Kidney Injury (DC) Follow Up With: Nicolasa Estes [employer] [Advanced Practice Nurse] - 01/14/19 3:40 pm Ysabel Gamez MD [Primary Care Provider] - 01/19/19 10:45 am Fabián Jaimes MD [Partnered Physician] - (Physicians office will call patient to schedule a follow-up appointment. ) Additional Instructions: BMP 7 days after discharge and f/u with Dr. Darling in 4-6 weeks. (This is reccomendations from nephrology). Please make sure you get this drawn, come to nearest [place] affiliated lab. Take coupon card with you to pharmacy for Zyvox so you can get this at [place].
== END 2019-01-11 15:24 | disposition home or self-care (01) | DRG 469 ==
LOC: EMEROOARM 18:03 → 2NENU 20:41 → SUATTDRO 20:41 → 2NENU 22:08
PROVIDERS: ADMIT Internal Medicine Nephrology; ATTEND Internal Medicine
PROC: ENDOEBX (2019-01-08 18:55)